=== PATIENT | female | born 1950 | race Caucasian/White ===

== ENCOUNTER 2023-10-28 12:01 | Outpatient (AMB) | payer MEDICARE, OTHER, SELFPAY ==
--- NOTE | 2023-10-28 12:02 | MHC.PC.OV ---
Vital Signs 10/28/23 12:29 10/28/23 13:04 Height 5 ft 0.91 in Weight 198 lb BMI 37.5 BP 158/88 H 140/78 H Blood Pressure Location Lt brachial Lt brachial Position Sitting Sitting Respiration 14 Pulse 85 Pulse Source Pulse Oximeter Temp 98.4 F Temp Source Axillary Pulse Oximetry (%) 98 Oxygen Delivery Method Room Air Intake Visit Reasons: est care Intake Note: New Patient visit. Rash on both hands [employer] Required: No Allergies amoxicillin [From Augmentin] Allergy (Mild, Verified 10/28/23 12:45) skin rash clavulanic acid [From Augmentin] Allergy (Mild, Verified 10/28/23 12:45) skin rash Medication List - Last Reconciled 10/28/23 by PASTORA Wright- aripiprazole 2 mg PO DAILY atorvastatin 40 mg PO DAILY bromfenac 0.09% 1 drp ophthalmic (eye) BID calcium carbonate (Calcium) 1,200 mg PO DAILY cholecalciferol (vitamin D3) 50 mcg PO DAILY lamotrigine 200 mg PO DAILY levothyroxine 100 mcg PO DAILY lorazepam 0.5 mg PO BID PRN losartan 100 mg PO DAILY metformin ER 500 mg PO BID multivitamin 1 tab PO DAILY omega-3 fatty acids 1,000 mg PO DAILY omeprazole 40 mg PO DAILY Tobacco use date assessed: 10/28/23 Fall risk assessment: No Falls in past year Last assessed Fall Risk: 10/28/23 Dental Screening Dental Screen Date: 10/28/23 Did you have a dental visit in the last 12 months?: Yes Did you have a dental problem in the last 6 months where you did not have access to dental care?: No Was dental information given to patient?: Patient has dentist HPI HPI Comments History of Present Illness Details 72-year-old female with hyperlipidemia, prediabetes, GERD, sleep apnea with CPAP, CKD 3, obesity, osteopenia, MDD, bipolar 1 disorder, hypothyroidism, generalized anxiety disorder, hypertension, vitamin-D deficiency, iron deficiency anemia, diverticulitis Status post breast surgery 1996, cataract surgery on the left in 2011, cataract surgery in the right 2013 D&C 2005, eye surgery in 1992, inguinal hernia repair 1960 medial nerve decompression 2004, shoulder arthroscopy with rotator cuff repair on the right 2010, surgery for relief of elevated intra-ocular pressure bilat 2006, tonsillectomy, total abdominal hysterectomy with removal of both ovaries and 2006, excision of ganglion cyst of the wrist 1986, glaucoma surgery 2019 Specialist Psychiatry [facility] Op[facility] Dr Briggs Health maintenance Mammogram 01/19/2022 within normal limits - updated order placed today DEXA 01/19/2022 positive osteopenia- updated order placed today Sleep Study 2019 Colonoscopy 2022 normal 10 year recall * i dont have this record, per pt report Here today to [facility] Old records reviewed Glaucoma - has increased pressure, new drops, may need laser on bilat eyes HTN - on amlodipine & losartan Worried about elevation in BP. Monitors at Home. Reports SBP >= 140. Denies chest pain. Itchy rash bilat hands, present for 2-3 months. Has used OTC meds w/o relief. Does not think insurance covers Derm referral. [facility] Family History (Updated 10/28/23 @ 12:59 by Nilda Mendoza CMA) Mother Hypertension Stroke Father Arthritis, rheumatoid Glaucoma Social History Housing: Apartment Patient Tobacco Use Status: Former Tobacco user Tobacco use type: Cigarette Years Smoked: Only smoked during college e-Cigarette/Vaping Use: Never Used Current occupational status: retired Cognitive needs: No Hearing needs: No Vision needs: No Questionnaire PHQ-9 Over the last 2 weeks, how often have you been bothered by any of the following problems? 1. Little interest or pleasure in doing things: not at all 2. Feeling down, depressed, or hopeless: not at all 3. Trouble falling or staying asleep, or sleeping too much: several days 4. Feeling tired or having little energy: nearly every day 5. Poor appetite or overeating: not at all 6. Feeling bad about yourself - or that you are a failure or have let yourself or your family down: not at all 7. Trouble concentrating on things, such as reading the newspaper or watching television: not at all 8. Moving or speaking so slowly that other people could have noticed. Or the opposite - being so fidgety or restless that you have been moving around a lot more than usual: not at all 9. Thoughts that you would be better off or of hurting yourself in some way: not at all Total score: 4 Depression Screening Interpretation: Positive Depression Screening Follow-up: Existing condition and In treatment Depression Screening Done: Yes 48479 - PHQ-9 Billing: Yes Source: Developed by Drs. Jerome Carranza, Padmini Bower, Jay Jay Gonzalez and colleagues, with an educational orlando from [employer]. Thrive Questionnaire Date Thrive assessed: 10/28/23 I am a: Patient What is your living situation today?: I have a steady place to live Within the past 12 months, did the food you bought not last and you didn't have the money to get more?: Never true Within the past 12 months, did you worry whether your food would run out before you got money to buy more?: Never true Do you have trouble paying for medicines?: No Do you have trouble getting transportation to medical appointments?: No Do you have trouble paying your heating and electricity bill?: No Do you have trouble taking care of your child, family member or friend?: No Do you have trouble with day-to-day activities such as bathing, preparing meals, shopping, managing finances, etc.?: No Are you currently unemployed and looking for a job?: No Are you interested in more education?: No Please select the resources that you would like help with: None Currently or been in a relationship where the following occur: no concerns reported THRIVE Score: 0 AUDIT C Alcohol Use Questionnaire (AUDIT-C) 1. How often do you have a drink containing alcohol?: Never 2. How many drinks containing alcohol do you have on a typical day when you are drinking?: 1 or 2 3. How often do you have six or more drinks on one occasion?: Never Total Score: 0 Score Reviewed/Action Taken: Yes AYANNA-7 AMB Questionnaire AYANNA-7 Date AYANNA - 7 assessed: 10/28/23 Feeling nervous, anxious, or on edge: 0 = Not at all Not being able to stop or control worryin = Not at all Worrying too much about different things: 0 = Not at all Trouble relaxin = Not at all Being so restless that it is hard to sit still: 0 = Not at all Becoming easily annoyed or irritable: 0 = Not at all Feeling afraid as if something awful might happen: 0 = Not at all Total AYANNA-7 score (0-4 normal; 5-9 mild; 10-14 moderate; 15-21 severe): 0 Source: Developed by Drs. Jerome Carranza, Padmini Bower, Jay Jay Gonzalez and colleagues, with an educational orlando from [employer] AYANNA-7 Assessment Billing AYANNA-7 Assessment Tool: AYANNA-7 Assessment 41712 Review of Systems Const All systems reviewed & are unremarkable except as noted in HPI and below Physical exam (Primary Care) Vital Signs: Last Vital Signs Temp 98.4 F 10/28/23 12:29 Pulse 85 10/28/23 12:29 Resp 14 10/28/23 12:29 BP 140/78 H 10/28/23 13:04 Pulse Ox 98 10/28/23 12:29 Oxygen Delivery Method Room Air 10/28/23 12:29 BMI result Body Mass Index 37.5 BMI Assessment/Plan discussion: High BMI High, discussed plan: lifestyle Tobacco/Smoking Status: Tobacco use Status Tobacco use date assessed 10/28/23 10/28/23 12:41 Patient Tobacco Use Status Former Tobacco user 10/28/23 12:41 Tobacco use type Cigarette 10/28/23 12:41 e-Cigarette/Vaping Use Never Used 10/28/23 12:24 PHQ-9: PHQ-9 Score PHQ-9: Total score 4 10/28/23 13:25 Depression Screening Interpretation: Positive Depression Screening Follow-up: Existing condition and In treatment Thrive Assessment: Date of Thrive Assessment Date Thrive assessed 10/28/23 10/28/23 13:01 Currently or been in a relationship where the following occur: no concerns reported Const Other: awake alert NAD scleras nonicteric bilat MMM RRR, 2/6 systolic murmur LSB LS dim at bases otherwise clear throughout Mood and affect appropriate Bilat hands eczematous type rash w/o secondary infection Purpura bilat Trace edema BLE R>L hairless, chronic vascular skin changes Assessment and Plan Assessment & Plan (1) Osteopenia: Comment: DEXA 2021, new order placed today Code(s): M85.80 - Other specified disorders of bone density and structure, unspecified site Qualifiers: Osteopenia location: multiple sites Qualified Code(s): M85.89 - Other specified disorders of bone density and structure, multiple sites (2) Screening for breast cancer: Comment: routine screening Code(s): Z12.39 - Encounter for other screening for malignant neoplasm of breast Qualifiers: Breast cancer screening modality: mammogram Qualified Code(s): Z12.31 - Encounter for screening mammogram for malignant neoplasm of breast (3) CKD (chronic kidney disease) stage 3, GFR 30-59 ml/min: Comment: based on previous records; ordered updated labs. Code(s): N18.30 - Chronic kidney disease, stage 3 unspecified Qualifiers: Chronic kidney disease stage 3 subtype: stage 3a (GFR 45-59) Qualified Code(s): N18.31 - Chronic kidney disease, stage 3a (4) Iron deficiency anemia: Comment: unsure of cause, colon UTD Check labs She is on PPI 40mg QD, has been for a long time. Has no idea why she is on it. Will work on deprescribing. Code(s): D50.9 - Iron deficiency anemia, unspecified Qualifiers: Iron deficiency anemia type: unspecified iron deficiency Qualified Code(s): D50.9 - Iron deficiency anemia, unspecified (5) Prediabetes: Comment: check labs & bring back to discuss on Metformin ER 500mg po BID Code(s): R73.03 - Prediabetes (6) HTN (hypertension): Comment: on losartan 100mg QD and amlodipine. * Of note, amlodipine not on current med list, will have to verify. BP goal < 130/80. Reports home log SBP around 140 Plan: at this time,cont meds, check labs, monitor BP QD at home, bring log to next visit & adjust meds as needed. Code(s): I10 - Essential (primary) hypertension Qualifiers: Hypertension type: primary hypertension Qualified Code(s): I10 - Essential (primary) hypertension (7) Dermatitis: Comment: of hands plan: topical steroid bid + ointment based moisturizer until healed Code(s): L30.9 - Dermatitis, unspecified (8) BRIANNA on CPAP: Comment: referred to [facility] sleep medicine for mgmt Code(s): G47.33 - Obstructive sleep apnea (adult) (pediatric) (9) Heart murmur previously undiagnosed: Comment: noted on exam today. Echo ordered. Code(s): R01.1 - Cardiac murmur, unspecified (10) Hyperlipidemia LDL goal <100: Comment: on atorvastatin 40mg QD Check labs Code(s): E78.5 - Hyperlipidemia, unspecified (11) Bipolar 1 disorder: Comment: managed by outside prescriber currently on lorazepam, abilify and cymbalta Code(s): F31.9 - Bipolar disorder, unspecified (12) Hypothyroid: Comment: on levothyroxine 100mcg QD update labs Code(s): E03.9 - Hypothyroidism, unspecified Qualifiers: Hypothyroidism type: acquired Qualified Code(s): E03.9 - Hypothyroidism, unspecified (13) Vitamin D deficiency: Comment: on Vitamin d3 50mcg QD + Calcium Carb 1200 mg QD Code(s): E55.9 - Vitamin D deficiency, unspecified (14) PVD (peripheral vascular disease): Comment: based on physical exam Monitor skin integrity, cont statin and BP control Code(s): I73.9 - Peripheral vascular disease, unspecified (15) Glaucoma: Comment: will need to obtain records active w Dr Briggs on eye drops Code(s): H40.9 - Unspecified glaucoma Qualifiers: Glaucoma type: unspecified Plan This note is constructed using voice recognition software. While every effort has been made to ensure accuracy in line and frame poler, still errors may have been included Sometimes, these errors may affect the content or meaning of the given sentence . Total time spent caring for the patient today was 75 minutes. This includes time spent before the visit reviewing the chart, time spent during the visit, and time spent after the visit on documentation Orders: Orders MM tomosynthesis screening BI Today M85.80 - Other specified disorders of bone density and structure, unspecified site, Z12.39 - Encounter for other screening for malignant neoplasm of breast XR DEXA axial skeleton Today M85.80 - Other specified disorders of bone density and structure, unspecified site, Z12.39 - Encounter for other screening for malignant neoplasm of breast Comprehensive [place]. Panel Fast Today D50.9 - Iron deficiency anemia, unspecified, I10 - Essential (primary) hypertension, M85.80 - Other specified disorders of bone density and structure, unspecified site, N18.30 - Chronic kidney disease, stage 3 unspecified, R73.03 - Prediabetes Lipid Panel Today D50.9 - Iron deficiency anemia, unspecified, I10 - Essential (primary) hypertension, M85.80 - Other specified disorders of bone density and structure, unspecified site, N18.30 - Chronic kidney disease, stage 3 unspecified, R73.03 - Prediabetes TSH reflex Free T4 Today D50.9 - Iron deficiency anemia, unspecified, I10 - Essential (primary) hypertension, M85.80 - Other specified disorders of bone density and structure, unspecified site, N18.30 - Chronic kidney disease, stage 3 unspecified, R73.03 - Prediabetes Complete Blood Count no Diff Today D50.9 - Iron deficiency anemia, unspecified, I10 - Essential (primary) hypertension, M85.80 - Other specified disorders of bone density and structure, unspecified site, N18.30 - Chronic kidney disease, stage 3 unspecified, R73.03 - Prediabetes Vitamin B12 and Folate Today D50.9 - Iron deficiency anemia, unspecified, I10 - Essential (primary) hypertension, M85.80 - Other specified disorders of bone density and structure, unspecified site, N18.30 - Chronic kidney disease, stage 3 unspecified, R73.03 - Prediabetes Microalbumin, Random (w Creat) Today D50.9 - Iron deficiency anemia, unspecified, I10 - Essential (primary) hypertension, M85.80 - Other specified disorders of bone density and structure, unspecified site, N18.30 - Chronic kidney disease, stage 3 unspecified, R73.03 - Prediabetes Vitamin D 1,25 dihydroxy Today D50.9 - Iron deficiency anemia, unspecified, I10 - Essential (primary) hypertension, M85.80 - Other specified disorders of bone density and structure, unspecified site, N18.30 - Chronic kidney disease, stage 3 unspecified, R73.03 - Prediabetes IRON PROFILE Today D50.9 - Iron deficiency anemia, unspecified, I10 - Essential (primary) hypertension, M85.80 - Other specified disorders of bone density and structure, unspecified site, N18.30 - Chronic kidney disease, stage 3 unspecified, R73.03 - Prediabetes CA echo transthoracic complete Today R01.1 - Cardiac murmur, unspecified Referrals Sleep Medicine Referral G47.33 - Obstructive sleep apnea (adult) (pediatric) Medications: New triamcinolone acetonide 0.1% 1 appl topical BID 15 grams 2RF Patient Instructions: USE SOMETHING LIKE A&D OINT OR BAGBALM OINTMENT RTO IN 2-3 WEEKS TO FU ON LABS, ECHO RESULTS, HTN MGMT, MED MGMT Coding Level of Care Code New Pt Level 5 (30254) Diagnoses Osteopenia of multiple sites M85.89 Osteopenia location: multiple sites Encounter for screening mammogram for malignant neoplasm of breast Z12.31 Breast cancer screening modality: mammogram Stage 3a chronic kidney disease N18.31 Chronic kidney disease stage 3 subtype: stage 3a (GFR 45-59) Iron deficiency anemia, unspecified iron deficiency anemia type D50.9 Iron deficiency anemia type: unspecified iron deficiency Prediabetes R73.03 Primary hypertension I10 Hypertension type: primary hypertension Dermatitis L30.9 BRIANNA on CPAP G47.33 Heart murmur previously undiagnosed R01.1 Hyperlipidemia LDL goal <100 E78.5 Bipolar 1 disorder F31.9 Acquired hypothyroidism E03.9 Hypothyroidism type: acquired Vitamin D deficiency E55.9 PVD (peripheral vascular disease) I73.9 Glaucoma H40.9 Glaucoma type: unspecified Additional Codes AYANNA-7 Assessment Billing - AYANNA-7 Assessment Tool: AYANNA-7 Assessment [id number] ([id number])
[2023-10-28 12:29] VITALS: BP 158/88; PULSE 85; RESP 14; TEMP 36.9; O2SAT 98; BMI 37.5
[2023-10-28 13:04] VITALS: BP 140/78
== END 2023-10-28 13:24 | disposition home or self-care (01) ==
PROVIDERS: PCP Nurse Practitioner Family; Visit Provider Nurse Practitioner Family
DX: M85.89 Other specified disorders of bone density and structure, multiple sites (principal); Z12.31 Encounter for screening mammogram for malignant neoplasm of breast; N18.31 Chronic kidney disease, stage 3a; D50.9 Iron deficiency anemia, unspecified; R73.03 Prediabetes; I10 Essential (primary) hypertension; L30.9 Dermatitis, unspecified; G47.33 Obstructive sleep apnea (adult) (pediatric); R01.1 Cardiac murmur, unspecified; E78.5 Hyperlipidemia, unspecified; F31.9 Bipolar disorder, unspecified; E03.9 Hypothyroidism, unspecified
CPT/HCPCS: 99205

== ENCOUNTER 2023-10-29 10:51 | Outpatient (REF) | payer MEDICARE, OTHER, SELFPAY ==
[2023-10-29 14:40] LABS: Hemoglobin 13.4 g/dl (12.0-16.0); Mean Corpuscular HGB Conc 33.5 g/dl (31.0-35.0); Mean Corpuscular Hemoglobin 31.1 pg (27.0-33.0); Mean Corpuscular Volume 92.8 fL (80.0-98.0); Platelet Count 297 X10*3/uL (160-400); Red Blood Count 4.31 X10*6/uL (4.20-5.50); Red Cell Distribution Width 13.5 % (11.0-16.0); White Blood Count 4.4 X10*3/uL (4.8-10.8)
[2023-10-29 15:32] LABS: Alanine Aminotransferase 17 U/L (0-31); Albumin Level 4.4 g/dL (3.5-5.0); Alkaline Phosphatase 69 U/L (39-117); Anion Gap 15 (12-20); Aspartate Amino Transferase 18 U/L (5-31); Bilirubin Total 0.5 mg/dL (0.0-1.0); Blood Urea Nitrogen 18 mg/dL (9-16); Calcium 9.9 mg/dL (8.4-10.2); Carbon Dioxide 26 mmol/L (22-29); Chloride 102 mmol/L (96-108); Cholesterol 203 mg/dL (<200); Estimated Glomerular Filt Rate > 60; Glucose Fasting 83 mg/dL (60-99); HDL Cholesterol 66 mg/dL (>40); Iron 110 mcg/dL (30-160); LDL Cholesterol Calculated 100 mg/dL (<100); Percent Iron Saturation 31 % (15-50); Sodium 139 mmol/L (135-145); Total Iron Binding Capacity 352 mcg/dL (228-428); Total Protein 7.3 g/dL (6.5-8.0); Triglycerides 188 mg/dL (<150); Unsaturated Iron Binding 242 ug/dL
[2023-10-29 15:46] LABS: TSH reflex Free T4 4.01 uIU/mL (0.32-4.0)
[2023-10-29 15:59] LABS: Microalbum/Creatinine Ratio Ur 112.7 ug/mg cr (<30)
[2023-10-29 16:02] LABS: Folate 16.6 ng/mL (> or = 4.0); Vitamin B12 501 pg/mL (200-900)
[2023-10-29 16:25] LABS: Free T4 (Free Thyroxine) 0.94 ng/dL (0.71-1.85)
[2023-11-03 01:48] LABS: VITAMIN D (1,25 OH) D3 63 pg/mL; Vit D (1,25-Dihydroxy) Total 63 pg/mL (18-72); Vitamin D (1,25 OH) D2 <8 pg/mL
== END 2023-10-29 10:52 | disposition home or self-care (01) ==
LOC: HO.WFDLDS 10:51
PROVIDERS: Visit Provider Nurse Practitioner Family
DX: I12.9 Hypertensive chronic kidney disease with stage 1 through stage 4 chronic kidney disease, or unspecified chronic kidney disease (principal); R73.03 Prediabetes; D50.9 Iron deficiency anemia, unspecified; M85.80 Other specified disorders of bone density and structure, unspecified site; N18.30 Chronic kidney disease, stage 3 unspecified
CPT/HCPCS: 36415; 80053; 80061; 82043; 82570; 82607; 82652; 82746; 83540; 84439; 84443; 85027

== ENCOUNTER 2023-11-11 09:04 | Outpatient (AMB) | payer MEDICARE, OTHER, SELFPAY ==
--- NOTE | 2023-11-11 09:37 | MHC.PC.OV ---
Vital Signs 11/11/23 09:39 Height 5 ft 2 in Weight 198 lb BMI 36.2 BP 147/85 H Blood Pressure Location Rt brachial Position Sitting Respiration 13 Pulse 99 Pulse Source Pulse Oximeter Temp 98.2 F Temp Source Temporal Artery Scan Pulse Oximetry (%) 98 Oxygen Delivery Method Room Air Intake Visit Reasons: FU LABS, HTN W/ BP LOG & MED MGMT Allergies amoxicillin [From Augmentin] Allergy (Mild, Verified 11/11/23 10:09) skin rash clavulanic acid [From Augmentin] Allergy (Mild, Verified 11/11/23 10:09) skin rash Medication List - Last Reconciled 11/11/23 by Gill Saldivar, [employer]ES [employer]ISING [employer]OC[employer]ATE-BC aripiprazole 2 mg PO DAILY atorvastatin 40 mg PO DAILY bromfenac 0.09% 1 drp ophthalmic (eye) BID calcium carbonate (Calcium) 1,200 mg PO DAILY cholecalciferol (vitamin D3) 50 mcg PO DAILY lamotrigine 200 mg PO DAILY levothyroxine 100 mcg PO DAILY lorazepam 0.5 mg PO BID PRN losartan 100 mg PO DAILY metformin ER 500 mg PO BID multivitamin 1 tab PO DAILY omeprazole 40 mg PO DAILY triamcinolone acetonide 0.1% 1 appl topical BID Tobacco use date assessed: 10/28/23 Fall risk assessment: No Falls in past year Last assessed Fall Risk: 11/11/23 Dental Screening Dental Screen Date: 10/28/23 HPI HPI Comments History of Present Illness Details 72-year-old female with hyperlipidemia, prediabetes, GERD, sleep apnea with CPAP, CKD 3, obesity, osteopenia, MDD, bipolar 1 disorder, hypothyroidism, generalized anxiety disorder, hypertension, vitamin-D deficiency, iron deficiency anemia, proteinuria Status post breast surgery 1996, cataract surgery on the left in 2011, cataract surgery in the right 2012 D&C 2005, eye surgery in 1992, inguinal hernia repair 1960 medial nerve decompression 2004, shoulder arthroscopy with rotator cuff repair on the right 2010, surgery for relief of elevated intra-ocular pressure bilat 2005, tonsillectomy, total abdominal hysterectomy with removal of both ovaries and 2005, excision of ganglion cyst of the wrist 1986, glaucoma surgery 2018 Specialist Psychiatry Ophthalmology Health maintenance Mammogram 01/19/2022 within normal limits DEXA 01/19/2022 positive osteopenia Sleep Study 2019 Vaccines - UTD, will get latest PCV Here today for chronic condition FU. Echo scheduled next Wednesday Mammo and DEXA next Wednesday Labs from 10/29/2023 show a normal CBC, normal electrolytes, normal BUN creatinine, normal fasting glucose, normal iron studies, normal LFTs, elevated total cholesterol 203, triglycerides 188, LDL 100, HDL 66, normal B12, normal folate, TSH 4.01, free thyroxine 0.94, elevated urine microalbumin creatinine at 112.7, Vit d normal Rash on R hand is much improved w/ desitin and topical steroid. Left knee hurts. Did something to it. unsure of what; generally aches. Wonders if related to weather. Exercising daily. This helps. BP log reviewed. sBP 115-153 DBP 62-88 P 76-98 Taking Calcium/Mg/Zinc/D3 supplement daily 1000/400/15/600 Labs WNL on this, ok to cont. [facility] Medical History (Updated 11/11/23 @ 16:37 by Gill Saldivar, [facility]) No pertinent past medical history Surgical History (Updated 11/11/23 @ 09:48 by Mariann Blandon CMA) No pertinent past surgical history Family History (Updated 11/11/23 @ 09:49 by Mariann Blandon CMA) Mother Hypertension Stroke Father Arthritis, rheumatoid Glaucoma Social History (Updated 11/11/23 @ 09:46 by Mariann Blandon CMA) Household Members: None Housing: Apartment 75 years or older and lives alone: No Alcohol intake: current Alcohol intake frequency: holidays/special occasions only Patient Tobacco Use Status: Former Tobacco user Tobacco use type: Cigarette Years Smoked: Only smoked during college e-Cigarette/Vaping Use: Never Used service: No Current occupational status: retired Current occupational exposures/hazards: No Cognitive needs: No Hearing needs: No Vision needs: No Questionnaire Thrive Questionnaire Date Thrive assessed: 10/28/23 AYANNA-7 AMB Questionnaire AYANNA-7 Date AYANNA - 7 assessed: 10/28/23 Source: Developed by Drs. Jerome Carranza, Padmini Bower, Jay Jay Gonzalez and colleagues, with an educational [place] from [employer] Review of Systems Const All systems reviewed & are unremarkable except as noted in HPI and below Physical exam (Primary Care) Vital Signs: Last Vital Signs Temp 98.2 F 11/11/23 09:39 Pulse 99 11/11/23 09:39 Resp 13 11/11/23 09:39 BP 147/85 H 11/11/23 09:39 Pulse Ox 98 11/11/23 09:39 Oxygen Delivery Method Room Air 11/11/23 09:39 BMI result Body Mass Index 36.2 BMI Assessment/Plan discussion: High BMI High, discussed plan: lifestyle Tobacco/Smoking Status: Tobacco use Status Tobacco use date assessed 10/28/23 11/11/23 09:39 Patient Tobacco Use Status Former Tobacco user 11/11/23 09:46 Tobacco use type Cigarette 11/11/23 09:46 e-Cigarette/Vaping Use Never Used 11/11/23 09:46 Thrive Assessment: Date of Thrive Assessment Date Thrive assessed 10/28/23 11/11/23 09:39 Const Other: awake alert NAD scleras nonicteric bilat MMM RRR, 2/6 systolic murmur LSB LS dim at bases otherwise clear throughout Mood and affect appropriate Bilat hands clear of rash Purpura bilat Trace edema BLE R>L hairless, chronic vascular skin changes Assessment and Plan Assessment & Plan (1) HTN (hypertension): Comment: on losartan 100mg QD and amlodipine 10mg BP goal < 130/80. Reports home log SBP around 140 Plan: Add hydrochlorothiazide 12.5 mg. Prescription for losartan 100 mg/hydrochlorothiazide 12.5 mg 1 tablet once per day sent to the pharmacy should take this along with the amlodipine 10 mg daily. monitor BP QD at home, bring log to next visit & adjust meds as needed. Code(s): I10 - Essential (primary) hypertension Qualifiers: Hypertension type: primary hypertension Qualified Code(s): I10 - Essential (primary) hypertension (2) Vitamin D deficiency: Comment: on Vitamin d3 50mcg QD + Calcium Carb 1200 mg QD Vitamin-D within normal limits, continue Code(s): E55.9 - Vitamin D deficiency, unspecified (3) Hypothyroid: Comment: on levothyroxine 100mcg QD Euthyroid based on labs TSH 4.01, continue levothyroxine at current dose Code(s): E03.9 - Hypothyroidism, unspecified Qualifiers: Hypothyroidism type: acquired Qualified Code(s): E03.9 - Hypothyroidism, unspecified (4) Hyperlipidemia LDL goal <100: Comment: on atorvastatin 40mg QD LDL at goal, continue atorvastatin 40 mg daily Code(s): E78.5 - Hyperlipidemia, unspecified (5) Iron deficiency anemia: Comment: in the past, most recent labs WNL, colon UTD She is on PPI 40mg QD, has been for a long time. Has no idea why she is on it. Will work on deprescribing. Take omeprazole 20mg daily x 2 weeks, then take every other day x 1 week and then cont to decrease weekly until off. IF you have any symptoms of heart burn or reflux, resume the previous week dosing for 2 weeks and then continue the taper. If not able to fully come off, ok to HOLD at that dose & we can go from there. Code(s): D50.9 - Iron deficiency anemia, unspecified Qualifiers: Iron deficiency anemia type: unspecified iron deficiency Qualified Code(s): D50.9 - Iron deficiency anemia, unspecified Plan This note is constructed using voice recognition software. While every effort has been made to ensure accuracy in catering driver, still errors may have been included Sometimes, these errors may affect the content or meaning of the given sentence . Total time spent caring for the patient today was 45 minutes. This includes time spent before the visit reviewing the chart, time spent during the visit, and time spent after the visit on documentation RTO TO DISCUSS ECHO, MAMMO, DEXA RESULTS *WILL NEED TO ORDER FUTURE LABS AT NEXT OV Medications: New omeprazole 20 mg PO DAILY 90 caps 0RF losartan-hydrochlorothiazide 100-12.5 mg 1 tab PO DAILY 90 tabs 0RF amlodipine 10 mg PO DAILY 90 tabs 0RF Patient Instructions: Take omeprazole 20mg daily x 2 weeks, then take every other day x 1 week and then cont to decrease weekly until off. IF you have any symptoms of heart burn or reflux, resume the previous week dosing for 2 weeks and then continue the taper. If not able to fully come off, ok to HOLD at that dose & we can go from there. Coding Level of Care Code Est Pt Level 5 (16132) Diagnoses Primary hypertension I10 Hypertension type: primary hypertension Vitamin D deficiency E55.9 Acquired hypothyroidism E03.9 Hypothyroidism type: acquired Hyperlipidemia LDL goal <100 E78.5 Iron deficiency anemia, unspecified iron deficiency anemia type D50.9 Iron deficiency anemia type: unspecified iron deficiency
[2023-11-11 09:39] VITALS: BP 147/85; PULSE 99; RESP 13; TEMP 36.8; O2SAT 98; BMI 36.2
== END 2023-11-11 10:36 | disposition home or self-care (01) ==
PROVIDERS: PCP Family Medicine; Visit Provider Nurse Practitioner Family
DX: I10 Essential (primary) hypertension (principal); E55.9 Vitamin D deficiency, unspecified; E03.9 Hypothyroidism, unspecified; E78.5 Hyperlipidemia, unspecified; D50.9 Iron deficiency anemia, unspecified
CPT/HCPCS: 99215

== ENCOUNTER → 2023-11-15 13:57 | Outpatient (REF) | payer MEDICARE, OTHER, SELFPAY ==
--- NOTE | 2023-11-15 14:02 | CA_ITS ---
Transthoracic Echocardiogram Amended Patient (Last, First, Middle): Belen Ram, Gender: Female Date of : 1950 Age: 72 Procedure Date: 11/15/2023 Procedure Type: Transthoracic Echocardiogram Location: OP Height: 157.48 cm Weight: 86.18 kg BSA: 1.87 m2 Heart Rate: 61 bpm BP: 145 / 85 mmHg [employer] Planner: LAYLA Referring MD: Gill Saldivar [facility] District Ranger: Delgado Vallejo MD Symptoms: R01.1 - Cardiac murmur, unspecified Study Quality: Fair ECG Rhythm: Sinus Conclusions: - 1. Hyperdynamic LV ejection fraction greater than 70% with impaired relaxation filling pattern 2. Mildly elevated aortic velocities which could be due to increased stroke volume 3. Normal RV systolic pressure 4. No gross pericardial effusion Findings Left Ventricle Normal left ventricular cavity size. There is normal left ventricular wall thickness. The left ventricular systolic function is hyperdynamic. The visually estimated ejection fraction is >70%. Spectral Doppler is indicative of an impaired relaxation filling pattern. E/E prime ratio is between 8 and 15 consistent with indeterminate filling pressures. Peak GLS is -18.2%, within normal limits. Right Ventricle Normal right ventricular cavity size and systolic function. Atria Both atria are normal in size. There is no evidence of interatrial shunt. Aortic Valve Normal aortic valve structure and function. There is no aortic valve stenosis. There is no aortic valve regurgitation. increased gradient through the aortic valve probably related to high stroke volume and/or minimal subaortic obstruction Mitral Valve Normal mitral valve structure and function. There is trace mitral valve regurgitation. There is no mitral valve stenosis. Pulmonic Valve The pulmonic valve is likely normal. There is trace pulmonic valve regurgitation. Tricuspid Valve Normal tricuspid valve structure. There is trace tricuspid valve regurgitation. The right ventricular systolic pressure is normal. The right ventricular systolic pressure is 21 mmHg. Normal right atrial pressure. There is no evidence of pulmonary hypertension. Great Vessels The pulmonary artery was not well visualized. There is no dilatation of the ascending aorta measuring 3.40 cm. Venous The inferior vena cava is normal in size and collapses greater than 50% with inspiration. Pericardium/Pleural There is no evidence of pericardial effusion. Prior Study Comparison No prior study available for comparison. Measurements 2D Linear Measurements IVSd: 1.10 0.6-0.9/0.6-1.0 cm LVIDd: 3.70 3.9-5.3/4.2-5.9 cm LVIDd Index: 1.98 2.4-3.2/2.2-3.1 cm/m2 LVIDs: 1.82 2.0-3.6 cm LVPWd: 0.91 0.7-1.1 cm LA Diam: 3.00 2.7-3.8/3.0-4.0 cm LAIDs Index: 1.60 1.5-2.3 cm/m2 LV Mass: 140.73 67-162/88-224 g LV Mass Index: 75.26 43-95/49-115 g/m2 LVOT Diam: 1.80 3.0+(-)1.3 cm 2D Volumes LA Vol: 22.10 2D Systolic Function EF 4C: 78.20 >55% EF 2C: 71.40 >55% EF BiP: 76.20 >55% Mitral Valve MV Pk E: 0.61 MV PK A: 0.92 MV Decel Time: 343.00 E/A: 0.70 E'Lateral: 7.94 E'Medial: 4.90 E/E' Med: 12.40 E/E' Lat: 7.70 PHT: 101.00 MVA PHT: 2.18 Decel Elk: 1.77 Aortic Valve AoV Pk Romeo: 1.78 AoV Mn Romeo: 1.13 AoV VTI: 0.33 AoV Pk Grad: 13.00 Aov Mn Grad: 6.00 NANI Cont.VTI: 2.19 LVOT LVOT Pk Romeo: 1.42 LVOT Mn Romeo: 1.01 LVOT VTI: 0.29 LVOT Pk Grad: 8.00 LVOT Mn Grad: 5.00 LVOT Diam: 1.80 LVOT Area: 2.54 Diastolic Function MV Pk E: 0.61 MV Pk A: 0.92 E/A: 0.70 E'Medial: 4.90 E/E' Med: 12.40 E' Laterial: 7.94 E/E' Lat: 7.70 Right Ventricle TAPSE (mm): 22.60 TVS' Romeo: 9.68 Tricuspid Valve TR Pk Romeo: 2.13 TR Pk Grad: 18.00 RA Press: 3.00 RVSP: 21.00 Great Vessels Aorta Sinus of Valsalva: 3.00 2.0-3.5 cm Ao Asc: 3.40 2.1-3.4 cm Pulmonary Valve PV Pk Romeo: 1.10 Peak PV Grad: 5.00 Updated in Other Vendor System with Status of Final Delgado Vallejo MD electronically signed on 11/16/2023 10:57:24 AM with status of Final
== END ==
LOC: HO.CARD 13:57
PROVIDERS: PCP Nurse Practitioner Family; Visit Provider Nurse Practitioner Family
DX: R01.1 Cardiac murmur, unspecified (principal)
CPT/HCPCS: 93306; 93356

== ENCOUNTER → 2023-11-15 14:02 | Outpatient (BNV) | payer MEDICARE, OTHER, SELFPAY | PROVIDERS: PCP Nurse Practitioner Family; Visit Provider Internal Medicine Cardiovascular Disease | DX: R01.1 Cardiac murmur, unspecified (principal); R93.1 Abnormal findings on diagnostic imaging of heart and coronary circulation | CPT/HCPCS: 93306; 93356 ==

== ENCOUNTER 2023-11-19 12:29 | Outpatient (REF) | payer MEDICARE, OTHER, SELFPAY ==
--- NOTE | ~2023-11-19 | MM_ITS ---
EXAMINATION: BONE DENSITOMETRY CLINICAL INDICATION: Osteopenia. COMPARISON: This is the patient's baseline examination. TECHNIQUE: Using a [employer] DXA System (software version: 13.1) manufactured by [employer], dual-energy x-ray absorptiometry was performed of the lumbar spine and left hip. The images are of good technical quality. Summary results are attached. FINDINGS: LEFT FEMUR, NECK: BMD 0.534 g/cm2, Z-score -2.3, T-score -3.6, osteoporosis. LEFT FEMUR, TOTAL: BMD 0.666 g/cm2, Z-score -1.6, T-score -2.7, osteoporosis. AP SPINE L1-L4: BMD 0.958 g/cm2, Z-score -0.8, T-score -1.9, osteopenia. IDENTIFIED RISK FACTORS: Hysterectomy, menopause, bilateral oophorectomy, parental hip fracture. HISTORY OF FRACTURE: None listed. MEDICATIONS: Calcium supplements or multivitamin, vitamin D. MM/XR DEXA axial skeleton IMPRESSION: 1. DIAGNOSIS: Osteoporosis based on the lowest T-score value of -3.6 in the femoral neck applying World Health Organization criteria. 2. 10-YEAR FRACTURE RISK PREDICTION, FRAX: According to the guidelines, FRAX calculation should only be performed on patients in the osteopenia bone density category. Therefore, FRAX was not performed on this patient. 3. Treatment Recommendations: NOF guidelines recommend consideration for treatment in postmenopausal women and men age 50 and older presenting with the following: -A hip or vertebral (clinical or morphometric) fracture. -T-score less than or equal to -2.5 at the femoral neck or spine after appropriate evaluation to exclude secondary causes. -Low bone mass at the hip or spine and a 10-year fracture probability by FRAX of greater than or equal to 3% for hip fracture or greater than or equal to 20% for major osteoporotic fracture based on the [place] adapted WHO algorithm. 4. Other Recommendations: All treatment decisions require clinical judgment and consideration of individual patient factors, including patient preferences, comorbidities, previous drug use, risk factors not captured in the FRAX model (e.g. frailty, falls, vitamin D deficiency, increased bone turnover, interval significant decline in bone density) and possible under or overestimation of fracture risk by FRAX. Additional medical evaluation for secondary cause of low bone mineral density may be appropriate. FUTURE SCAN RECOMMENDATION: People with diagnosed cases of osteoporosis or at high risk for fracture should have regular bone mineral density tests. For patients eligible for Medicare, routine testing is allowed once every 2 years. The testing frequency can be increased to one year for patients who have rapidly progressing disease, those who are receiving or discontinuing medical therapy to restore bone mass, or have additional risk factors.
--- NOTE | ~2023-11-19 | MM_ITS ---
EXAMINATION: MM SCREENING DIGITAL BREAST TOMOSYNTHESIS, BILATERAL CLINICAL INFORMATION: Screening. Asymptomatic. COMPARISON: Mammography: This study is compared with prior exams dating back to 2019. TECHNIQUE: Digital breast tomosynthesis is performed in both the craniocaudal and mediolateral oblique views along with computer-aided detection (CAD). Synthesized 2D images are generated from the tomosynthesis. FINDINGS: The breasts are heterogeneously dense, which may obscure small masses (ACR BI-RADS breast composition Category c). There are no significant masses, abnormal calcifications, or other abnormalities. There are bilateral, unchanged benign calcifications. MM/MM tomosynthesis screening BI IMPRESSION: No mammographic evidence of malignancy. ASSESSMENT: BI-RADS BI-RADS 2 - Benign Findings RECOMMENDATION: Routine annual mammography screening. 1 year F/U This examination should not preclude the clinical evaluation of a suspicious palpable abnormality. This patient's information was entered into a reminder system with a target due date for their next mammogram.
== END 2023-11-19 12:30 | disposition home or self-care (01) ==
LOC: HO.MAMMO 12:29
PROVIDERS: PCP Nurse Practitioner Family; Visit Provider Nurse Practitioner Family
DX: Z12.31 Encounter for screening mammogram for malignant neoplasm of breast (principal); Z13.820 Encounter for screening for osteoporosis; M85.80 Other specified disorders of bone density and structure, unspecified site; Z78.0 Asymptomatic menopausal state
CPT/HCPCS: 77063; 77067; 77080

== ENCOUNTER → 2023-11-19 13:00 | Outpatient (BNV) | payer MEDICARE, OTHER, SELFPAY | PROVIDERS: PCP Nurse Practitioner Family; Visit Provider Radiology Diagnostic Radiology | DX: Z12.31 Encounter for screening mammogram for malignant neoplasm of breast (principal) | CPT/HCPCS: 77063; 77067 ==

== ENCOUNTER 2023-11-25 10:15 | Outpatient (AMB) | payer MEDICARE, OTHER, SELFPAY ==
--- NOTE | 2023-11-25 10:16 | A.OFFPC_ITS ---
Vital Signs 3 11/25/23 10:20 11/25/23 10:51 Height 5 ft 2 in Weight 198 lb BMI 36.2 BP 151/73 H 128/76 Blood Pressure Location Rt brachial Lt brachial Position Sitting Sitting Pulse 76 Pulse Source Pulse Oximeter Pulse Oximetry (%) 97 Oxygen Delivery Method Room Air Intake Visit Reasons: F/U Echo results Intake Note: Patient is here to review results. Patient brought her blood pressure machine and a list of BP readings to todays appointment. 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 Required: No Accompanied by: Self / Same As Patient Allergies amoxicillin [From Augmentin] Allergy (Mild, Verified 11/25/23 10:23) skin rash clavulanic acid [From Augmentin] Allergy (Mild, Verified 11/25/23 10:23) skin rash Medication List - Last Reconciled 11/25/23 by Gill Saldivar, SWEATER OPERATOR- amlodipine 10 mg PO DAILY aripiprazole 2 mg PO DAILY atorvastatin 40 mg PO DAILY bromfenac 0.09% 1 drp ophthalmic (eye) BID calcium carbonate (Calcium) 1,200 mg PO DAILY cholecalciferol (vitamin D3) 50 mcg PO DAILY lamotrigine 200 mg PO DAILY levothyroxine 100 mcg PO DAILY lorazepam 0.5 mg PO BID PRN losartan-hydrochlorothiazide 100-12.5 mg 1 tab PO DAILY metformin ER 500 mg PO BID multivitamin 1 tab PO DAILY omeprazole 20 mg PO DAILY triamcinolone acetonide 0.1% 1 appl topical BID Tobacco use date assessed: 10/28/23 Dental Screening Dental Screen Date: 10/28/23 HPI HPI Comments 2 History of Present Illness0 Details 72-year-old female with hyperlipidemia, prediabetes, GERD, sleep apnea with CPAP, CKD 3, obesity, osteoporosis, MDD, bipolar 1 disorder, hypothyroidism, generalized anxiety disorder, hypertension, vitamin-D deficiency, iron deficiency anemia, proteinuria, CHF Status post breast surgery 1996, cataract surgery on the left in 2011, cataract surgery in the right 2012 D&C 2005, eye surgery in 1992, inguinal hernia repair 1960 medial nerve decompression 2004, shoulder arthroscopy with rotator cuff repair on the right 2010, surgery for relief of elevated intra-ocular pressure bilat 2005, tonsillectomy, total abdominal hysterectomy with removal of both ovaries and 2005, excision of ganglion cyst of the wrist 1986, glaucoma surgery 2018 Specialist Psychiatry Ophthalmology Health maintenance Mammogram 01/19/2022 within normal limitsl 11/2023 done but not read yet DEXA 01/19/2022 positive osteopenia; 11/2023 DIAGNOSIS: Osteoporosis based on the lowest T-score value of -3.6 in the femoral neck applying World Health Organization criteria. Sleep Study 2018 Echo 11/2023 Echo 11/2023 trace mitral , pulmonic and tricuspid valve regurg Normal left ventricular cavity size. There is normal left ventricular wall thickness. The left ventricular systolic function is hyperdynamic. The visually estimated ejection fraction is >70%. Spectral Doppler is indicative of an impaired relaxation filling pattern. Labs from 10/29/2023 show a normal CBC, normal electrolytes, normal BUN creatinine, normal fasting glucose, normal iron studies, normal LFTs, elevated total cholesterol 203, triglycerides 188, LDL 100, HDL 66, normal B12, normal folate, TSH 4.01, free thyroxine 0.94, elevated urine microalbumin creatinine at 112.7, Vit d normal Here today to f/u C/o ongoing L knee pain. Did improve but has returned and hurts. Deprescribing PPI - today she started with every other day; feeling fine doing this so far w/o any return sx. HTN - new start HCTZ. Home BP log reviewed. All at goal of SBP < 130 DBP range 71-84 P range 76-87 Echo - reviewed today. Mammo - done but not read; waiting on comp from other imaging. DEXA - reviewed. Progression to osteoporosis. Discussed treatment options. [facility] Medical History (Updated 11/25/23 @ 11:09 by PASTORA WrightMARY [facility]) No pertinent past medical history Surgical History (Updated 11/11/23 @ 09:48 by Mariann Blandon CMA) No pertinent past surgical history Family History (Updated 11/11/23 @ 09:49 by Mariann Blandon CMA) Mother Hypertension Stroke Father Arthritis, rheumatoid Glaucoma Social History (Updated 11/11/23 @ 09:46 by Mariann Blandon CMA) Household Members: None Housing: Apartment 75 years or older and lives alone: No Alcohol intake: current Alcohol intake frequency: holidays/special occasions only Patient Tobacco Use Status: Former Tobacco user Tobacco use type: Cigarette Years Smoked: Only smoked during college e-Cigarette/Vaping Use: Never Used service: No Current occupational status: retired Current occupational exposures/hazards: No Cognitive needs: No Hearing needs: No Vision needs: No Questionnaire Thrive Questionnaire Date Thrive assessed: 10/28/23 AYANNA-7 AMB Questionnaire AYANNA-7 Date AYANNA - 7 assessed: 10/28/23 Source: Developed by Drs. Jerome Carranza, Padmini Bower, Jay Jay Gonzalez and colleagues, with an educational [place] from [employer]. Review of Systems Const All systems reviewed & are unremarkable except as noted in HPI and below Physical exam (Primary Care) Vital Signs: Last Vital Signs Pulse 76 11/25/23 10:20 BP 151/73 H 11/25/23 10:20 Pulse Ox 97 11/25/23 10:20 Oxygen Delivery Method Room Air 11/25/23 10:20 BMI result Body Mass Index 36.2 BMI Assessment/Plan discussion: High BMI High, discussed plan: lifestyle Tobacco/Smoking Status: Tobacco use Status Tobacco use date assessed 10/28/23 11/25/23 10:16 Patient Tobacco Use Status Former Tobacco user 11/25/23 10:16 Tobacco use type Cigarette 11/25/23 10:16 e-Cigarette/Vaping Use Never Used 11/25/23 10:16 Thrive Assessment: Date of Thrive Assessment Date Thrive assessed 10/28/23 11/25/23 10:16 Const Other: awake alert NAD scleras nonicteric bilat MMM RRR, 2/6 systolic murmur LSB LS dim at bases otherwise clear throughout Mood and affect appropriate Bilat hands clear of rash Trace edema BLE R>L hairless, chronic vascular skin changes Extrem Upper/lower leg/hip images: 2 1. pain with palp; pain with active and passive extension and flexion. antalgic gait favoring l side; no edema erythema or warmth Assessment and Plan Assessment & Plan (1) CHF (congestive heart failure): Comment: Echo 11/2023 trace mitral , pulmonic and tricuspid valve regurg Normal left ventricular cavity size. There is normal left ventricular wall thickness. The left ventricular systolic function is hyperdynamic. The visually estimated ejection fraction is >70%. Spectral Doppler is indicative of an impaired relaxation filling pattern. Plan: Euvolemic, medical mgmt with CCB, ARB + HCTZ Code(s): I50.9 - Heart failure, unspecified Qualifiers: Heart failure type: diastolic Heart failure chronicity: chronic Q ualified Code(s): I50.32 - Chronic diastolic (congestive) heart failure (2) Heart valve regurgitation: Comment: Echo 11/2023 trace mitral , pulmonic and tricuspid valve regurg Normal left ventricular cavity size. There is normal left ventricular wall thickness. The left ventricular systolic function is hyperdynamic. The visually estimated ejection fraction is >70%. Spectral Doppler is indicative of an impaired relaxation filling pattern. Code(s): I38 - Endocarditis, valve unspecified (3) Osteoporosis: Comment: 11/2023 DIAGNOSIS: Osteoporosis based on the lowest T-score value of -3.6 in the femoral neck applying World Health Organization criteria. Discussed tx options such as Fosomax VS referral to Rheum/endo for further workup and treatment options She wishes to check insurance coverage and get back to me. Cont wt bearing exercises, supplements. Normal Vit D + Ca levels. Code(s): M81.0 - Age-related osteoporosis without current pathological fracture Qualifiers: Osteoporosis type: other Presence of current pathological fracture: w ithout current pathological fracture Qualified Code(s): M81.8 - Other osteoporosis without current pathological fracture (4) Left knee pain: Comment: started a few weeks ago, no known injury Check xray. Then consider referral to PT or Ortho Code(s): M25.562 - Pain in left knee Qualifiers: Chronicity: acute Qualified Code(s): M25.562 - Pain in left knee Plan TOTAL TIME SPENT CARING FOR THE PATIENT TODAY WAS 45 MINUTES. THIS INCLUDES TIME SPENT BEFORE THE VISIT REVIEWING THE CHART, TIME SPENT DURING THE VISIT, AND TIME SPENT AFTER THE VISIT ON DOCUMENTATION THIS NOTE IS CONSTRUCTED USING VOICE RECOGNITION SOFTWARE. WHILE EVERY EFFORT HAS BEEN MADE TO ENSURE ACCURACY IN CARROTING MACHINE OFFBEARER, STILL ERRORS MAY HAVE BEEN INCLUDED SOMETIMES, THESE ERRORS MAY AFFECT THE CONTENT OR MEANING OF THE GIVEN SENTENCE . Orders: Orders 2 XR knee LT 4V Today M25.562 - Pain in left knee Comprehensive Met. Panel 01/31/24 E03.9 - Hypothyroidism, unspecified, E55.9 - Vitamin D deficiency, unspecified, E78.5 - Hyperlipidemia, unspecified, I10 - Essential (primary) hypertension, I50.32 - Chronic diastolic (congestive) heart failure, M81.8 - Other osteoporosis without current pathological fracture, N18.31 - Chronic kidney disease, stage 3a, R73.03 - Prediabetes Lipid Panel 01/31/24 E03.9 - Hypothyroidism, unspecified, E55.9 - Vitamin D deficiency, unspecified, E78.5 - Hyperlipidemia, unspecified, I10 - Essential (primary) hypertension, I50.32 - Chronic diastolic (congestive) heart failure, M81.8 - Other osteoporosis without current pathological fracture, N18.31 - Chronic kidney disease, stage 3a, R73.03 - Prediabetes TSH reflex Free T4 01/31/24 E03.9 - Hypothyroidism, unspecified, E55.9 - Vitamin D deficiency, unspecified, E78.5 - Hyperlipidemia, unspecified, I10 - Essential (primary) hypertension, I50.32 - Chronic diastolic (congestive) heart failure, M81.8 - Other osteoporosis without current pathological fracture, N18.31 - Chronic kidney disease, stage 3a, R73.03 - Prediabetes Vitamin D 1,25 dihydroxy 01/31/24 E03.9 - Hypothyroidism, unspecified, E55.9 - Vitamin D deficiency, unspecified, E78.5 - Hyperlipidemia, unspecified, I10 - Essential (primary) hypertension, I50.32 - Chronic diastolic (congestive) heart failure, M81.8 - Other osteoporosis without current pathological fracture, N18.31 - Chronic kidney disease, stage 3a, R73.03 - Prediabetes Magnesium 01/31/24 E03.9 - Hypothyroidism, unspecified, E55.9 - Vitamin D deficiency, unspecified, E78.5 - Hyperlipidemia, unspecified, I10 - Essential (primary) hypertension, I50.32 - Chronic diastolic (congestive) heart failure, M81.8 - Other osteoporosis without current pathological fracture, N18.31 - Chronic kidney disease, stage 3a, R73.03 - Prediabetes Parathyroid Hormone Intact 01/31/24 E03.9 - Hypothyroidism, unspecified, E55.9 - Vitamin D deficiency, unspecified, E78.5 - Hyperlipidemia, unspecified, I10 - Essential (primary) hypertension, I50.32 - Chronic diastolic (congestive) heart failure, M81.8 - Other osteoporosis without current pathological fracture, N18.31 - Chronic kidney disease, stage 3a, R73.03 - Prediabetes Hemoglobin A1c 01/31/24 E03.9 - Hypothyroidism, unspecified, E55.9 - Vitamin D deficiency, unspecified, E78.5 - Hyperlipidemia, unspecified, I10 - Essential (primary) hypertension, I50.32 - Chronic diastolic (congestive) heart failure, M81.8 - Other osteoporosis without current pathological fracture, N18.31 - Chronic kidney disease, stage 3a, R73.03 - Prediabetes Microalbumin, Random (w Creat) 01/31/24 E03.9 - Hypothyroidism, unspecified, E55.9 - Vitamin D deficiency, unspecified, E78.5 - Hyperlipidemia, unspecified, I10 - Essential (primary) hypertension, I50.32 - Chronic diastolic (congestive) heart failure, M81.8 - Other osteoporosis without current pathological fracture, N18.31 - Chronic kidney disease, stage 3a, R73.03 - Prediabetes Vitamin B12 01/31/24 E03.9 - Hypothyroidism, unspecified, E55.9 - Vitamin D deficiency, unspecified, E78.5 - Hyperlipidemia, unspecified, I10 - Essential (primary) hypertension, I50.32 - Chronic diastolic (congestive) heart failure, M81.8 - Other osteoporosis without current pathological fracture, N18.31 - Chronic kidney disease, stage 3a, R73.03 - Prediabetes Phosphorus 01/31/24 E03.9 - Hypothyroidism, unspecified, E55.9 - Vitamin D deficiency, unspecified, E78.5 - Hyperlipidemia, unspecified, I10 - Essential (primary) hypertension, I50.32 - Chronic diastolic (congestive) heart failure, M81.8 - Other osteoporosis without current pathological fracture, N18.31 - Chronic kidney disease, stage 3a, R73.03 - Prediabetes Patient Instructions: Check with insurance about coverage on Referral to specialist (Endo or Rheum) AND labs (blood work) done at specialty office. RTO IN 3 MONTHS FOR ROUTINE FU, PLEASE GET LABS DONE ABOUT 1 WEEK BEFORE. Coding Level of Care Code Est Pt Level 5 (64586) Diagnoses Chronic diastolic congestive heart failure I50.32 Heart failure type: diastolic Heart failure chronicity: chronic Heart valve regurgitation I38 Other osteoporosis without current pathological fracture M81.8 Osteoporosis type: other Presence of current pathological fracture: without current pathological fracture Acute pain of left knee M25.562 Chronicity: acute
[2023-11-25 10:20] VITALS: BP 151/73; PULSE 76; O2SAT 97; BMI 36.2
[2023-11-25 10:51] VITALS: BP 128/76
== END 2023-11-25 11:06 | disposition home or self-care (01) ==
PROVIDERS: PCP Nurse Practitioner Family; Visit Provider Nurse Practitioner Family
DX: I50.32 Chronic diastolic (congestive) heart failure (principal); I38 Endocarditis, valve unspecified; M81.8 Other osteoporosis without current pathological fracture; M25.562 Pain in left knee
CPT/HCPCS: 99215

== ENCOUNTER 2023-12-02 13:15 | Outpatient (REF) | payer MEDICARE, OTHER, SELFPAY ==
--- NOTE | ~2023-12-02 | XR_ITS ---
EXAMINATION: XR KNEE, LEFT CLINICAL INFORMATION: Pain in left knee COMPARISON: None available. TECHNIQUE: Four views of the left knee. FINDINGS: No fracture or joint effusion. Alignment is anatomic. There is moderate to marked narrowing of the patellofemoral joint compartment with marginal osteophyte formation. There is mild narrowing of the medial joint compartment with marginal osteophyte formation. There is question of a few small calcific densities within the knee joint raising concern regarding loose bodies within the joint. XR/XR knee LT 4V IMPRESSION: 1. Osteoarthritis. 2. Question of loose bodies within the knee joint. MRI scan could be obtained for further evaluation.
== END 2023-12-02 13:16 | disposition home or self-care (01) ==
LOC: HO.XRAY 13:15
PROVIDERS: Visit Provider Nurse Practitioner Family
DX: M25.562 Pain in left knee (principal)
CPT/HCPCS: 73564

== ENCOUNTER 2023-12-30 12:50 | Outpatient (AMB) | payer MEDICARE, OTHER, SELFPAY ==
[2023-12-30 12:56] VITALS: BMI 36.2
--- NOTE | 2023-12-30 12:56 | MHC.OFFVIS ---
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 Patient reports her pain lasted about 3 weeks and was unable to bear weight she states it is now a 1 on the 1-10 pain scale. She states her pain has gone away . She denies injury, injections, surgery. She denies any locking or giving way. Allergies amoxicillin [From Augmentin] Allergy (Mild, Verified 12/30/23 13:01) skin rash clavulanic acid [From Augmentin] Allergy (Mild, Verified 12/30/23 13:01) skin rash Medication List - Last Reconciled 12/30/23 by Joseph Calderon MD amlodipine 10 mg PO DAILY aripiprazole 2 mg PO DAILY atorvastatin 40 mg PO DAILY bromfenac 0.09% 1 drp ophthalmic (eye) BID calcium carbonate (Calcium 600) 1,200 mg PO DAILY cholecalciferol (vitamin D3) 50 mcg PO DAILY lamotrigine 200 mg PO DAILY levothyroxine 100 mcg PO DAILY lorazepam 0.5 mg PO BID PRN losartan-hydrochlorothiazide 100-12.5 mg 1 tab PO DAILY metformin ER 500 mg PO BID multivitamin 1 tab PO DAILY omeprazole 20 mg PO DAILY triamcinolone acetonide 0.1% 1 appl topical BID PFSH Medical History (Updated 12/30/23 @ 13:15 by Joseph Calderon MD) No pertinent past medical history Surgical History (Updated 11/11/23 @ 09:48 by Mariann Blandon CMA) No pertinent past surgical history Family History (Updated 11/11/23 @ 09:49 by Mariann Blandon CMA) Mother Hypertension Stroke Father Arthritis, rheumatoid Glaucoma Social History (Updated 11/11/23 @ 09:46 by Mariann Blandon CMA) Household Members: None Housing: Apartment [address] years or older and lives alone: No Alcohol intake: current Alcohol intake frequency: holidays/special occasions only Patient Tobacco Use Status: Former Tobacco user Tobacco use type: Cigarette Years Smoked: Only smoked during college e-Cigarette/Vaping Use: Never Used service: No Current occupational status: retired Current occupational exposures/hazards: No Cognitive needs: No Hearing needs: No Vision needs: No Physical Exam Vital Signs: BMI result Body Mass Index 36.2 Const Other: Well-nourished well-developed very friendly female awake alert and oriented x3 in no acute distress Extrem Other: Bilateral lower extremity examination shows good capillary refill, no skin lesions noted, normal sensation light touch Left knee examination shows a minimal effusion, minimal crepitus with range of motion, minimal discomfort with range of motion, no instability Results Reviewed Results Reviewed: X-rays of the patient's left knee show mild to moderate joint space narrowing most significant in the patellofemoral joint, no acute bony abnormalities Assessment & Plan Assessment & Plan (1) Arthritis of left knee: Code(s): M17.12 - Unilateral primary osteoarthritis, left knee Category: Medical Plan Ms. Ram presents with intermittent left knee discomfort due to early degenerative joint disease. I had a lengthy discussion with the patient regarding the treatment options. At this point the patient's symptoms are tolerable to her. She will continue with her activity modifications. She will follow up with me on an as-needed basis should her symptoms worsen in any way. Feel free to call me at any time should questions regarding orthopedic management arise. I spent 21 minutes in reviewing the patient's records and imaging studies, seeing the patient and documenting in the medical record. Coding Level of Care Code New Pt Level 2 (87523) Diagnoses Arthritis of left knee M17.12
== END 2023-12-30 13:13 | disposition home or self-care (01) ==
PROVIDERS: PCP Nurse Practitioner Family; Visit Provider Orthopaedic Surgery
DX: M17.12 Unilateral primary osteoarthritis, left knee (principal)
CPT/HCPCS: 99203

== ENCOUNTER → 2023-12-30 12:50 | Outpatient (BNVA) | payer MEDICARE, OTHER, SELFPAY | PROVIDERS: PCP Nurse Practitioner Family; Visit Provider Orthopaedic Surgery | DX: M17.12 Unilateral primary osteoarthritis, left knee (principal) | CPT/HCPCS: 99202 ==

== ENCOUNTER 2024-01-13 10:25 | Outpatient (REF) | payer MEDICARE, OTHER, SELFPAY ==
[2024-01-13 11:51] LABS: Estimated Average Glucose 108 mg/dL; Hemoglobin A1c % 5.4 % (<6.0)
[2024-01-13 12:02] LABS: Parathyroid Hormone Intact 65.5 pg/mL (8.7-77.1)
[2024-01-13 12:07] LABS: Alanine Aminotransferase 11 U/L (0-31); Albumin Level 4.4 g/dL (3.5-5.0); Alkaline Phosphatase 61 U/L (39-117); Anion Gap 11 (12-20); Aspartate Amino Transferase 15 U/L (5-31); Bilirubin Total 0.4 mg/dL (0.0-1.0); Blood Urea Nitrogen 26 mg/dL (9-16); Calcium 10.1 mg/dL (8.4-10.2); Carbon Dioxide 30 mmol/L (22-29); Chloride 105 mmol/L (96-108); Cholesterol 176 mg/dL (<200); Estimated Glomerular Filt Rate > 60; Glucose Random 93 mg/dL (60-115); HDL Cholesterol 61 mg/dL (>40); LDL Cholesterol Calculated 92 mg/dL (<100); Magnesium 2.3 mg/dL (1.6-2.6); Phosphorus 3.5 mg/dL (2.7-4.5); Potassium 4.1 mmol/L (3.3-5.1); Sodium 142 mmol/L (135-145); Total Protein 7.2 g/dL (6.5-8.0); Triglycerides 117 mg/dL (<150)
[2024-01-13 12:10] LABS: Creatinine Urine 34.18 mg/dL
[2024-01-13 12:23] LABS: TSH reflex Free T4 4.92 uIU/mL (0.32-4.0); Vitamin B12 446 pg/mL (200-900)
[2024-01-13 12:55] LABS: Free T4 (Free Thyroxine) 0.93 ng/dL (0.71-1.85)
[2024-01-18 16:03] LABS: VITAMIN D (1,25 OH) D3 46 pg/mL; Vit D (1,25-Dihydroxy) Total 46 pg/mL (18-72); Vitamin D (1,25 OH) D2 <8 pg/mL
== END 2024-01-13 10:26 | disposition home or self-care (01) ==
LOC: HO.WFDLDS 10:25
PROVIDERS: Visit Provider Nurse Practitioner Family
DX: I50.32 Chronic diastolic (congestive) heart failure (principal); M81.8 Other osteoporosis without current pathological fracture; E55.9 Vitamin D deficiency, unspecified; E03.9 Hypothyroidism, unspecified; E78.5 Hyperlipidemia, unspecified; I10 Essential (primary) hypertension; R73.03 Prediabetes; N18.31 Chronic kidney disease, stage 3a
CPT/HCPCS: 36415; 80053; 80061; 82043; 82570; 82607; 82652; 83036; 83735; 83970; 84100; 84439; 84443

== ENCOUNTER 2024-01-20 12:26 | Outpatient (AMB) | payer MEDICARE, OTHER, SELFPAY ==
--- NOTE | 2024-01-20 12:36 | A.OFFPC_ITS ---
Vital Signs 01/20/24 12:40 Height 5 ft 2 in Weight 193 lb 2 oz BMI 35.3 BP 128/72 Blood Pressure Location Rt brachial Position Sitting Pulse 74 Pulse Source Pulse Oximeter Temp Source Oral Pulse Oximetry (%) 98 Oxygen Delivery Method Room Air Intake Visit Reasons: Routine FU/labs Allergies amoxicillin [From Augmentin] Allergy (Mild, Verified 01/20/24 13:18) skin rash clavulanic acid [From Augmentin] Allergy (Mild, Verified 01/20/24 13:18) skin rash Medication List - Last Reconciled 01/20/24 by Gill Saldivar, [employer]- amlodipine 10 mg PO DAILY aripiprazole 2 mg PO DAILY atorvastatin 40 mg PO DAILY bromfenac 0.09% 1 drp ophthalmic (eye) BID calcium carbonate (Calcium 600) 1,200 mg PO DAILY cholecalciferol (vitamin D3) 50 mcg PO DAILY lamotrigine 200 mg PO DAILY levothyroxine 100 mcg PO DAILY lorazepam 0.5 mg PO BID PRN losartan-hydrochlorothiazide 100-12.5 mg 1 tab PO DAILY metformin ER 500 mg PO BID multivitamin 1 tab PO DAILY omeprazole 20 mg PO DAILY triamcinolone acetonide 0.1% 1 appl topical BID Tobacco use date assessed: 10/28/23 Dental Screening Dental Screen Date: 10/28/23 HPI HPI Comments History of Present Illness Details 72-year-old female with hyperlipidemia, prediabetes, GERD, sleep apnea with CPAP, CKD 3, obesity, osteoporosis, MDD, bipolar 1 disorder, hypothyroidism, generalized anxiety disorder, hypertension, vitamin-D deficiency, iron deficiency anemia, proteinuria, CHF Status post breast surgery 1996, cataract surgery on the left in 2011, cataract surgery in the right 2012 D&C 2005, eye surgery in 1992, inguinal hernia repair 1960 medial nerve decompression 2004, shoulder arthroscopy with rotator cuff repair on the right 2010, surgery for relief of elevated intra-ocular pressure bilat 2005, tonsillectomy, total abdominal hysterectomy with removal of both ovaries and 2005, excision of ganglion cyst of the wrist 1986, glaucoma surgery 2018 Specialist Psychiatry Ophthalmology Health maintenance Mammogram 12/2023 WNL DEXA 01/19/2022 positive osteopenia; 11/2023 DIAGNOSIS: Osteoporosis based on the lowest T-score value of -3.6 in the femoral neck applying World Health Organization criteria. Sleep Study 2019 Echo 11/2023 Echo 11/2023 trace mitral , pulmonic and tricuspid valve regurg Normal left ventricular cavity size. There is normal left ventricular wall thickness. The left ventricular systolic function is hyperdynamic. The visually estimated ejection fraction is >70%. Spectral Doppler is indicative of an impaired relaxation filling pattern. Labs from 10/29/2023 show a normal CBC, normal electrolytes, normal BUN creatinine, normal fasting glucose, normal iron studies, normal LFTs, elevated total cholesterol 203, triglycerides 188, LDL 100, HDL 66, normal B12, normal folate, TSH 4.01, free thyroxine 0.94, elevated urine microalbumin creatinine at 112.7, Vit d normal Labs 01/13/2024 show normal electrolytes, BUN 26, creatinine 0.87, GFR greater than 60, hemoglobin A1c 5.4%, normal phosphorus, normal magnesium, normal LFTs, total cholesterol 176, triglycerides 117, LDL 92, HDL 61, normal B12, TSH 4.92, normal T4, normal parathyroid hormone, elevated urine microalbumin creatinine ratio 38, vitamin-D normal Here today to f/u on chronic conditions and review labs. BP log reviewed and remains at goal on current meds. TSH mildly elevated, reviewed admin of thyroid med, taking w/ Ca supplement. PLan will be to move Ca to HS and then repeat TSH at next lab check. Left knee is feeling ok at htis time. Ortho consult reviewed. PPI - only needs once per week. otherwise having some sx. Mammo 11/2023 BI-RADS BI-RADS 2 - Benign Findings Lipid prof has improved DEXA - reviewed. Progression to osteoporosis. Discussed treatment options. Would like referral to Rheum [facility] Medical History (Updated 01/21/24 @ 16:54 by Gill Saldivar, [facility] No pertinent past medical history Surgical History (Updated 11/11/23 @ 09:48 by Mariann Blandon CMA) No pertinent past surgical history Family History (Updated 11/11/23 @ 09:49 by Mariann Blandon CMA) Mother Hypertension Stroke Father Arthritis, rheumatoid Glaucoma Social History (Updated 11/11/23 @ 09:46 by Mariann Blandon CMA) Household Members: None Housing: Apartment 75 years or older and lives alone: No Alcohol intake: current Alcohol intake frequency: holidays/special occasions only Patient Tobacco Use Status: Former Tobacco user Tobacco use type: Cigarette Years Smoked: Only smoked during college e-Cigarette/Vaping Use: Never Used service: No Current occupational status: retired Current occupational exposures/hazards: No Cognitive needs: No Hearing needs: No Vision needs: No Questionnaire Thrive Questionnaire Date Thrive assessed: 10/28/23 AYANNA-7 AMB Questionnaire AYANNA-7 Date AYANNA - 7 assessed: 10/28/23 Source: Developed by Drs. Jerome Carranza, Padmini Bower, Jay Jay Gonzalez and colleagues, with an educational [place] from [employer]. Review of Systems Const All systems reviewed & are unremarkable except as noted in HPI and below Physical exam (Primary Care) Vital Signs: Last Vital Signs Pulse 74 01/20/24 12:40 BP 128/72 01/20/24 12:40 Pulse Ox 98 01/20/24 12:40 Oxygen Delivery Method Room Air 01/20/24 12:40 BMI result Body Mass Index 35.3 BMI Assessment/Plan discussion: High BMI High, discussed plan: lifestyle Tobacco/Smoking Status: Tobacco use Status Tobacco use date assessed 10/28/23 01/20/24 12:38 Patient Tobacco Use Status Former Tobacco user 01/20/24 12:38 Tobacco use type Cigarette 01/20/24 12:38 e-Cigarette/Vaping Use Never Used 01/20/24 12:38 Thrive Assessment: Date of Thrive Assessment Date Thrive assessed 10/28/23 01/20/24 12:38 Const Other: awake alert NAD scleras nonicteric bilat MMM RRR, 2/6 systolic murmur LSB LS dim at bases otherwise clear throughout Mood and affect appropriate Bilat hands clear of rash Trace edema BLE R>L hairless, chronic vascular skin changes Assessment and Plan Assessment & Plan (1) Osteoporosis: Comment: 11/2023 DIAGNOSIS: Osteoporosis based on the lowest T-score value of -3.6 in the femoral neck applying World Health Organization criteria. Discussed tx options such as Fosomax VS referral to Rheum/endo for further workup and treatment options Cont wt bearing exercises, supplements. Normal Vit D + Ca levels. Refer to rheum Code(s): M81.0 - Age-related osteoporosis without current pathological fracture Qualifiers: Osteoporosis type: other Presence of current pathological fracture: without current pathological fracture Qualified Code(s): M81.8 - Other osteoporosis without current pathological fracture (2) Hyperlipidemia LDL goal <100: Comment: on atorvastatin 40mg QD LDL at goal, continue atorvastatin 40 mg daily Code(s): E78.5 - Hyperlipidemia, unspecified (3) Hypothyroid: Comment: on levothyroxine 100mcg QD mild elevation in TSH, however w/o sx, normal t4., continue levothyroxine at current dose Code(s): E03.9 - Hypothyroidism, unspecified Qualifiers: Hypothyroidism type: acquired Qualified Code(s): E03.9 - H ypothyroidism, unspecified (4) HTN (hypertension): Comment: BP goal < 130/80. losartan 100 mg/hydrochlorothiazide 12.5 mg 1 tablet once per day sent to the pharmacy should take this along with the amlodipine 10 mg daily. Code(s): I10 - Essential (primary) hypertension Qualifiers: Hypertension type: primary hypertension Qualified Code(s): I10 - Essential (primary) hypertension Plan This note is constructed using voice recognition software. While every effort has been made to ensure accuracy in derrick boat runner, still errors may have been included Sometimes, these errors may affect the content or meaning of the given sentence . Total time spent caring for the patient today was 44 minutes. This includes time spent before the visit reviewing the chart, time spent during the visit, and time spent after the visit on documentation Orders: Orders Lipid Panel 04/10/24 E03.9 - Hypothyroidism, unspecified, E78.5 - Hyperlipidemia, unspecified TSH reflex Free T4 04/10/24 E03.9 - Hypothyroidism, unspecified, E78.5 - Hyperlipidemia, unspecified Referrals Rheumatology Referral M81.8 - Other osteoporosis without current pathological fracture Patient Instructions: Please continue to take your medications as currently prescribed. Please be sure to take your thyroid medication 2 hours before your calcium supplementation. This could be affecting your TSH levels which are mildly elevated today. We will repeat her TSH levels before the next office visit. You had a symptoms there was no need to change her medications especially given the normal T4. Your LDL and blood pressure at goal on the current medications. We will refer her to rheumatology for evaluation and treatment of the osteo porosis. Return to the office in April for a 30 minute follow up for chronic conditions with fasting labs done 1 week before. Always remember to return to office sooner should anything change or you need me sooner. Coding Level of Care Code Est Pt Level 5 (91287) Diagnoses Other osteoporosis without current pathological fracture M81.8 Osteoporosis type: other Presence of current pathological fracture: without current pathological fracture Hyperlipidemia LDL goal <100 E78.5 Acquired hypothyroidism E03.9 Hypothyroidism type: acquired Primary hypertension I10 Hypertension type: primary hypertension
[2024-01-20 12:40] VITALS: BP 128/72; PULSE 74; O2SAT 98; BMI 35.3
== END 2024-01-20 13:29 | disposition home or self-care (01) ==
PROVIDERS: PCP Nurse Practitioner Family; Visit Provider Nurse Practitioner Family
DX: M81.8 Other osteoporosis without current pathological fracture (principal); E78.5 Hyperlipidemia, unspecified; E03.9 Hypothyroidism, unspecified; I10 Essential (primary) hypertension
CPT/HCPCS: 99215

== ENCOUNTER 2024-03-23 09:03 | Outpatient (AMB) | payer MEDICARE, OTHER, SELFPAY ==
[2024-03-23 09:24] VITALS: BP 140/90; PULSE 77; O2SAT 98; BMI 37.7
--- NOTE | 2024-03-23 09:24 | A.OFFVIS_ITS ---
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 Allergies amoxicillin [From Augmentin] Allergy (Mild, Verified 03/23/24 09:37) skin rash clavulanic acid [From Augmentin] Allergy (Mild, Verified 03/23/24 09:37) skin rash Medication List - Last Reconciled 03/23/24 by PASTORA Calle amlodipine 10 mg PO DAILY aripiprazole 2 mg PO DAILY atorvastatin 40 mg PO DAILY bromfenac 0.09% 1 drp ophthalmic (eye) BID calcium carbonate (Calcium 600) 1,200 mg PO DAILY cholecalciferol (vitamin D3) 50 mcg PO DAILY lamotrigine 200 mg PO DAILY levothyroxine 100 mcg PO DAILY lorazepam 0.5 mg PO BID PRN losartan-hydrochlorothiazide 100-12.5 mg 1 tab PO DAILY metformin ER 500 mg PO BID multivitamin 1 tab PO DAILY omeprazole 20 mg PO DAILY triamcinolone acetonide 0.1% 1 appl topical BID HPI Comments Details: 73-yr-old female presents for new in-person patient visit for sleep consultation to establish care locally for management of her BRIANNA. Patient reports she was dx'd w/ sleep apnea and starting using PAP tx in her late 40s. She initially underwent sleep eval d/t snoring, poor sleep, daytime sleepiness. Her last HST was 2 yrs ago in [place], as she needed a PAP machine replacement. She has a [employer] machine. She believes her machine is set to APAP, but does not know the specific settings. She reports she uses her machine nightly and sleeps well with her CPAP machine. 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 [facility] Medical History (Updated 03/26/24 @ 15:09 by PASTORA Calle) No pertinent past medical history Surgical History (Updated 03/23/24 @ 09:37 by LYN Mccain) History of rotator cuff surgery H/O: hysterectomy No pertinent past surgical history Family History Mother Hypertension Stroke Father Arthritis, rheumatoid Glaucoma Social History Household Members: None Housing: Apartment [address] years or older and lives alone: No Alcohol intake: current Alcohol intake frequency: holidays/special occasions only Patient Tobacco Use Status: Former Tobacco user Tobacco use type: Cigarette Years Smoked: Only smoked during college e-Cigarette/Vaping Use: Never Used service: No Current occupational status: retired Current occupational exposures/hazards: No Cognitive needs: No Hearing needs: No Vision needs: No Physical Exam Vital Signs: Last Vital Signs Pulse 77 03/23/24 09:24 BP 140/90 H 03/23/24 09:24 Pulse Ox 98 03/23/24 09:24 Oxygen Delivery Method Room Air 03/23/24 09:24 BMI result Body Mass Index 37.7 Const General: no acute distress Orientation/consciousness: patient oriented x3 HEENT Other: Mallampati stage 4 Mild visible deviated nose Resp Effort & Inspection: normal respiratory effort and able to speak in complete sentences Cardio Rate: regular rate Rhythm: regular rhythm Heart sounds: Murmur heart sound present Neuro General: patient oriented x3 Psych Mental Status: mental status grossly normal Speech and movement: Clear speech present Attitude: cooperative Assessment & Plan Assessment & Plan (1) BRIANNA on CPAP: Code(s): G47.33 - Obstructive sleep apnea (adult) (pediatric) Category: Medical Plan Continue PAP therapy nightly > 4 hrs, as pt has good clinical effect from use. We will reach out to previous Resp supplier to determine her device settings and obtain previous sleep study reports if possible. We will connect pt to a local resp supply company, as pt is in need of new PAP supplies. Service transfer order written. Previous resp supplier- [facility], in [place], [place], phone [phone] Device [employer] [facility]: SN [id number] Mask: Nasal pillow/cushion f/u in 6 months or sooner prn. Coding Level of Care Code New Pt Level 3 (44377) Diagnoses BRIANNA on CPAP G47.33
== END 2024-03-23 10:18 | disposition home or self-care (01) ==
PROVIDERS: PCP Family Medicine; Visit Provider Nurse Practitioner Family
DX: G47.33 Obstructive sleep apnea (adult) (pediatric) (principal)
CPT/HCPCS: 99203

== ENCOUNTER → 2024-03-23 09:03 | Outpatient (BNVA) | payer MEDICARE, OTHER, SELFPAY | PROVIDERS: PCP Family Medicine; Visit Provider Nurse Practitioner Family | DX: G47.33 Obstructive sleep apnea (adult) (pediatric) (principal); Z99.89 Dependence on other enabling machines and devices | CPT/HCPCS: 99202 ==

== ENCOUNTER 2024-04-03 09:09 | Outpatient (REF) | payer MEDICARE, OTHER, SELFPAY ==
[2024-04-03 12:34] LABS: Cholesterol 189 mg/dL (<200); HDL Cholesterol 62 mg/dL (>40); LDL Cholesterol Calculated 95 mg/dL (<100); Triglycerides 160 mg/dL (<150)
[2024-04-03 12:37] LABS: TSH reflex Free T4 2.82 uIU/mL (0.32-4.0)
== END 2024-04-03 09:10 | disposition home or self-care (01) ==
LOC: HO.WFDLDS 09:09
PROVIDERS: Visit Provider Nurse Practitioner Family
DX: E03.9 Hypothyroidism, unspecified (principal); E78.5 Hyperlipidemia, unspecified
CPT/HCPCS: 36415; 80061; 84443

== ENCOUNTER 2024-05-30 11:50 | Outpatient (AMB) | payer MEDICARE, OTHER, SELFPAY ==
--- NOTE | 2024-05-30 12:00 | AM.OFFVISMDC ---
Intake Vital Signs 05/30/24 12:01 Height 5 ft 2 in Weight 205 lb 8 oz BMI 37.6 BP 134/78 Blood Pressure Location Lt brachial Position Sitting Respiration 14 Pulse 66 Pulse Source Pulse Oximeter Pulse Oximetry (%) 98 Oxygen Delivery Method Room Air Intake Visit Reasons: Annual Exam Intake Note: annual exam and needs refill on levothyroxine. Allergies amoxicillin [From Augmentin] Allergy (Mild, Verified 05/30/24 12:00) skin rash clavulanic acid [From Augmentin] Allergy (Mild, Verified 05/30/24 12:00) skin rash Medication List - Last Reconciled 05/30/24 by Gill Saldivar, TERMINAL MAKEUP OPERATOR- amlodipine 10 mg PO DAILY aripiprazole 2 mg PO DAILY atorvastatin 40 mg PO DAILY bromfenac 0.09% 1 drp ophthalmic (eye) BID calcium carbonate (Calcium 600) 1,200 mg PO DAILY cholecalciferol (vitamin D3) 50 mcg PO DAILY lamotrigine 200 mg PO DAILY levothyroxine 100 mcg PO DAILY lorazepam 0.5 mg PO BID PRN losartan-hydrochlorothiazide 100-12.5 mg 1 tab PO DAILY metformin ER 500 mg PO BID multivitamin 1 tab PO DAILY omeprazole 20 mg PO DAILY triamcinolone acetonide 0.1% 1 appl topical BID Do you need a note to return to daycare/school/sports/work: No HPI HPI Comments History of Present Illness Details Here today for AWV. The Medicare Annual Wellness Visit (AWV) is a yearly appointment with a health professional to identify health risks and help reduce them and to create or update a personalized prevention plan. During a Medicare AWV, health professionals should also review any current opioid prescriptions, detect any cognitive impairment, and establish or update medical and family history. 73-year-old female with hyperlipidemia, prediabetes, GERD, sleep apnea with CPAP, CKD 3, obesity, osteoporosis, MDD, bipolar 1 disorder, hypothyroidism, generalized anxiety disorder, hypertension, vitamin-D deficiency, iron deficiency anemia, proteinuria, CHF, glaucoma, stress incont Status post breast surgery 1996, cataract surgery on the left in 2011, cataract surgery in the right 2013 D&C 2005, eye surgery in 1992, inguinal hernia repair 1960 medial nerve decompression 2004, shoulder arthroscopy with rotator cuff repair on the right 2010, surgery for relief of elevated intra-ocular pressure bilat 2005, tonsillectomy, total abdominal hysterectomy with removal of both ovaries and 2006, excision of ganglion cyst of the wrist 1986, glaucoma surgery 2018 Social: Will be starting a job for 15 hours/week at [employer] working in activities family hx: as below Specialists: Psychiatry [facility] Op[facility] Dr Briggs Rheum first appt 07/11/24 Sleep Med Ortho PRN only Health Maintenance: See scanned preventative medicine assessment with personalized health plan and screening schedule Mammogram 11/19/2023 WNL DEXA 11/2023 DIAGNOSIS: Osteoporosis based on the lowest T-score value of -3.6 in the femoral neck applying World Health Organization criteria. Vaccines - UTD, will get latest PCV Colonoscopy 2022 normal 10 year recall * i dont have this record, per pt report Echo 11/2023 Echo 11/2023 trace mitral , pulmonic and tricuspid valve regurg Normal left ventricular cavity size. There is normal left ventricular wall thickness. The left ventricular systolic function is hyperdynamic. The visually estimated ejection fraction is >70%. Spectral Doppler is indicative of an impaired relaxation filling pattern. AAA screen: NA EKG: declined Visual Acuity: declined, active w/ Optho, routine fu last 05/2024 Hearing Screening: no concerns ACP: blank HCP MOLST and 5 wishes provided today Dietary/Nutrition/Exercise Edu provided: Y During the course of the visit the patient was educated and counseled about appropriate screening and preventative services. Patient instructions were provided to the patient in written or electronic format. I have reviewed and verified the above information. Has some problems she would like to review today: Chronic folliculitis of the scalp, picks at the skin and makes it worse. Has used several [id number] without relief. She is proper to her left arm. Denies any known injury. Complaints of urinary frequency without dysuria, hematuria. Has never had a UTI. TSH normal 03/2024 now taking without calcium, refill needed Skin of bilat hands is dry and flaking and itchy at times used topical creams and steroid tx which helped w itch but not w/ dry skin. Use VIt A&D oint. A1c now 6.3% this is increased from 12/2023 No dietary changes Taking metformin as prescribed, Wt stable PPI needing 4 times a week now to control GERD Plan: Start clobetasol 0.05% 1 application at bedtime to the scalp use p.r.n. for a maximum of 2 consecutive weeks To treat the dry skin of the hands we will prescribe ammonium Lac-Hydrin 12% apply to hands daily If this does not help can consider referral to Dermatology Offered and declined medications for overactive bladder. UA today negative. Continue all medications as currently prescribed. Refill sent as needed Return to office in 4 months for routine follow up with labs done 1 week before, sooner as needed This note is constructed using voice recognition software. While every effort has been made to ensure accuracy in spar machine operator helper, still errors may have been included Sometimes, these errors may affect the content or meaning of the given sentence . An additional 22 was spent addressing the problem(s) noted at todays visit. This includes time spent before the visit reviewing the chart, time spent during the visit, and time spent after the visit on documentation [facility] Medical History (Updated 05/30/24 @ 17:[address] [facility]) No pertinent past medical history Surgical History (Updated 03/23/24 @ 09:37 by LYN Mccain) History of rotator cuff surgery H/O: hysterectomy No pertinent past surgical history Family History Mother Hypertension Stroke Father Arthritis, rheumatoid Glaucoma Social History Household Members: None Housing: Apartment 75 years or older and lives alone: No Alcohol intake: current Alcohol intake frequency: holidays/special occasions only Patient Tobacco Use Status: Former Tobacco user Tobacco use type: Cigarette Years Smoked: Only smoked during college e-Cigarette/Vaping Use: Never Used service: No Current occupational status: retired Current occupational exposures/hazards: No Cognitive needs: No Hearing needs: No Vision needs: No Questionnaire Medicare Wellness Checkup What [age]?: [age] What gender do you identify with?: female During the past 4 weeks, how much have you been bothered by emotional problems such as feeling anxious, depressed, irritable, sad or downhearted, and blue?: not at all During the past 4 weeks, has your physical & emotional health limited your social activities with family, friends, neighbors, or groups?: not at all During the past 4 weeks, how much bodily pain have you generally had?: no pain During the past 4 weeks, was someone available to help you if you needed & wanted help?: yes, as much as I wanted During the past 4 weeks, what was the hardest physical activity you could do for at least 2 minutes?: moderate Can you get to places out of walking distance without help? (For eg., can you travel alone on buses, taxis or drive your car?): Yes Can you go shopping for groceries or clothes without someone's help?: Yes Can you prepare your own meals?: Yes Can you do your housework without help?: Yes Because of any health problems, do you need the help of another person with your personal care needs such as eating, bathing, dressing or getting around the house?: No Can you handle your own money without help?: Yes During the past 4 weeks, how would you rate your health in general?: excellent During the past 4 weeks how have things been going for you?: very well; could hardly better Are you having difficulties driving your car?: no Do you always fasten your seat belt when you are in a car?: yes, usually During past 4 weeks, have you been bothered by the following: never: Falling or dizzy when standing up, Sexual problems?, Trouble eating well? and Problems using the telephone? Have you fallen 2 or more times in the past year?: No Are you afraid of falling?: Yes Are you a smoker?: no During the past 4 weeks, how many drinks of wine, beer, or other alcoholic beverages did you have?: no alcohol at all Do you exercise for about 20 minutes 3 or more times a week?: yes, some of the time Have you been given information to help with the following?: no: Hazards in your house that might hurt you? and no: Keeping track of your medications? How often do you have trouble taking medicines the way you have been told to take them?: I always take medicine as prescribed How confident are you that you can control & manage most of your health problems?: very confident What is your race?: White Activity of Daily Living Bathing - sponge bath, tub bath or shower: receives no assistance (gets in/out by self, if usual bathing means Dressing - getting clothes from closets & drawers, including inner/outer garments & fasteners.: gets clothes & gets completely dressed without help Toileting - going to the 'toilet room' for urine/bowel elimination & cleaning self/arranging clothes: goes to toilet room, cleans self, arranges clothes without help Transfer: moves in & out of bed and chair without help (may use support object) Continence: controls urination/bowel movements completely by self Feeding: feeds self without help Total Score: 0 Information obtained from: patient Using telephone: independent Traveling: independent Shopping: independent Preparing meals: independent Housework: independent Taking medicine: independent Managing money: independent PHQ-9 Over the last 2 weeks, how often have you been bothered by any of the following problems? 1. Little interest or pleasure in doing things: not at all 2. Feeling down, depressed, or hopeless: not at all 3. Trouble falling or staying asleep, or sleeping too much: several days 4. Feeling tired or having little energy: several days 5. Poor appetite or overeating: not at all 6. Feeling bad about yourself - or that you are a failure or have let yourself or your family down: not at all 7. Trouble concentrating on things, such as reading the newspaper or watching television: not at all 8. Moving or speaking so slowly that other people could have noticed. Or the opposite - being so fidgety or restless that you have been moving around a lot more than usual: not at all 9. Thoughts that you would be better off or of hurting yourself in some way: not at all Total score: 2 Depression Screening Interpretation: Negative Depression Screening Done: Yes 99940 - PHQ-9 Billing: Yes Source: Developed by Drs. Jerome Carranza, Padmini Bower, Jay Jay Gonzalez and colleagues, with an educational [place] from [employer]. Physical Exam Vital Signs: Last Vital Signs Pulse 66 05/30/24 12:01 Resp 14 05/30/24 12:01 BP 134/78 05/30/24 12:01 Pulse Ox 98 05/30/24 12:01 Oxygen Delivery Method Room Air 05/30/24 12:01 BMI result Body Mass Index 37.6 Office Procedures Hearing Screen Left Overall Hearing Screening Results: Pass 55443 - Screening Test, pure tone, air only Results AMB Hemoglobin A1c AMB Hemoglobin A1c 6.3 % Last Edit by Guera Faustin MA on 05/30/24 12:28 AMB Urinalysis, Automated UA Leukoctes 0 Sakina/uL Last Edit by Guera Faustin MA on 05/30/24 12:59 UA Nitrite Negative Last Edit by Guera Faustin MA on 05/30/24 12:59 UA Urobilinogen 3.5 mg/dL Last Edit by Guera Faustin MA on 05/30/24 12:59 UA Protein mg/dL Last Edit by Guera Faustin MA on 05/30/24 12:59 0.15 Guera Faustin 05/30/24 12:59 UA pH 7.0 Last Edit by Guera Faustin MA on 05/30/24 12:59 UA Blood 0 Frankie/uL Last Edit by Guera Faustin MA on 05/30/24 12:59 UA Specific [place] 1.010 Last Edit by Guera Faustin MA on 05/30/24 12:59 UA Ketone Negative Last Edit by Guera Faustin MA on 05/30/24 12:59 UA Bilirubin 0 mg/dL Last Edit by Guera Faustin MA on 05/30/24 12:59 UA Glucose 0 mg/dL Last Edit by Guera Faustin MA on 05/30/24 12:59 Results Reviewed Results Reviewed: Laboratory Last Values Hgb A1c (Clinic) 6.3 % (4.0-6.0) H 05/30/24 12:17 Urine pH (Auto) 7.0 05/30/24 12:17 Specific [place] (Auto) 1.010 05/30/24 12:17 Urine Protein (Auto) mg/dL 05/30/24 12:17 Glucose (UA)(Auto) 0 mg/dL 05/30/24 12:17 Urine Ketones (Auto) Negative 05/30/24 12:17 Urine Blood (Auto) 0 Frankie/uL 05/30/24 12:17 Urine Nitrite (Auto) Negative 05/30/24 12:17 Urine Bilirubin (Auto) 0 mg/dL 05/30/24 12:17 Urine Urobilinogen (Auto) 3.5 mg/dL 05/30/24 12:17 Leukocyte Esterase (Auto) 0 Sakina/uL 05/30/24 12:17 Assessment & Plan Assessment & Plan (1) Encounter for subsequent annual wellness visit (AWV) in Medicare patient: Code(s): Z00.00 - Encounter for general adult medical examination without abnormal findings Plan: . (2) Prediabetes: Comment: on Metformin ER 500mg po BID Code(s): R73.03 - Prediabetes Plan: . (3) Dermatitis: Comment: of hands & scalp Code(s): L30.9 - Dermatitis, unspecified Plan: . (4) Overactive bladder: Code(s): N32.81 - Overactive bladder Plan: . (5) Hypothyroid: Comment: on levothyroxine 100mcg QD Code(s): E03.9 - Hypothyroidism, unspecified Qualifiers: Hypothyroidism type: acquired Qualified Code(s): E03.9 - Hypothyroidism, unspecified Plan: . (6) ACP (advance care planning): Code(s): Z71.89 - Other specified counseling Plan: . (7) GERD (gastroesophageal reflux disease): Code(s): K21.9 - Gastro-esophageal reflux disease without esophagitis Qualifiers: Esophagitis presence: without esophagitis Qualified Code(s): K21.9 - Gastro-esophageal reflux disease without esophagitis Plan: . (8) CKD (chronic kidney disease) stage 3, GFR 30-59 ml/min: Comment: based on previous records; ordered updated labs. Code(s): N18.30 - Chronic kidney disease, stage 3 unspecified Qualifiers: Chronic kidney disease stage 3 subtype: stage 3a (GFR 45-59) Qualified Code(s): N18.31 - Chronic kidney disease, stage 3a (9) Hyperlipidemia LDL goal <100: Comment: on atorvastatin 40mg QD LDL at goal, continue atorvastatin 40 mg daily Code(s): E78.5 - Hyperlipidemia, unspecified Plan . Orders: Orders AMB Urinalysis Automated Today Z13.9 - Encounter for screening, unspecified Hemoglobin A1c 09/03/24 E03.9 - Hypothyroidism, unspecified, E78.5 - Hyperlipidemia, unspecified, N18.31 - Chronic kidney disease, stage 3a, R73.03 - Prediabetes TSH reflex Free T4 09/03/24 E03.9 - Hypothyroidism, unspecified, E78.5 - Hyperlipidemia, unspecified, N18.31 - Chronic kidney disease, stage 3a, R73.03 - Prediabetes Vitamin B12 and Folate 09/03/24 E03.9 - Hypothyroidism, unspecified, E78.5 - Hyperlipidemia, unspecified, N18.31 - Chronic kidney disease, stage 3a, R73.03 - Prediabetes AMB Hemoglobin A1c Today Z13.9 - Encounter for screening, unspecified Lipid Panel 09/03/24 E03.9 - Hypothyroidism, unspecified, E78.5 - Hyperlipidemia, unspecified, N18.31 - Chronic kidney disease, stage 3a, R73.03 - Prediabetes Comprehensive Silva. Panel Fast 09/03/24 E03.9 - Hypothyroidism, unspecified, E78.5 - Hyperlipidemia, unspecified, N18.31 - Chronic kidney disease, stage 3a, R73.03 - Prediabetes Medications: New atorvastatin 40 mg PO DAILY 90 tabs 1RF clobetasol 0.05% use sparingly, do not use for more than 2 consecutive weeks 1 appl topical BEDTIME 4 weeks PRN 118 mL 2RF itchy scalp ammonium lactate 12% apply to hands 1 appl topical DAILY 400 grams 2RF Refilled levothyroxine 100 mcg PO DAILY 90 tabs 1RF amlodipine 10 mg PO DAILY 90 tabs 1RF Patient Instructions: Health screenings for women You should visit your health care provider from time to time, even if you are healthy. The purpose of these visits is to: Screen for medical issues Assess your risk for future medical problems Encourage a healthy lifestyle Update vaccinations and other preventive care services Help you get to know your provider in case of an illness Information Even if you feel fine, you should still see your provider for regular checkups. These visits can help you avoid problems in the future. For example, the only way to find out if you have high blood pressure is to have it checked regularly. High blood sugar and high cholesterol levels also may not have any symptoms in the early stages. A simple blood test can check for these conditions. There are specific times when you should see your provider or receive specific health screenings. The [place] Preventive Services Task Force publishes a list of recommended screenings. Below are screening guidelines for women ages 18 to 39. BLOOD PRESSURE SCREENING Your blood pressure should be checked at least once every 3 to 5 years if: Your blood pressure is in the normal range (top number less than 120 mm Hg and bottom number less than 80 mm Hg) You don't have risk factors for high blood pressure Ask your provider if you need your blood pressure checked more often if: The top number is 120 to 129 mm Hg or the bottom number is 70 to 79 mm Hg You have diabetes, heart disease, kidney problems, are overweight, or have certain other health conditions You have a first-degree relative with high blood pressure You are Black You had high blood pressure during a If the top number is 130 mm Hg or greater or the bottom number is 80 mm Hg or greater, this is considered stage 1 hypertension. Schedule an appointment with your provider to learn how you can reduce your blood pressure. Watch for blood pressure screenings in your area. Ask your provider if you can stop in to have your blood pressure checked. BREAST CANCER SCREENING Experts do not agree about the benefits of breast self-exams in finding breast cancer or saving lives. Talk to your provider about what is best for you. A screening mammogram is not recommended for most women under age 40. Your provider may discuss and recommend mammograms, MRI scans, or ultrasounds if you have an increased risk for breast cancer, such as: A mother or sister who had breast cancer at a young age (most often starting screening earlier than the age the close relative was diagnosed) You carry a high-risk genetic marker CERVICAL CANCER SCREENING Cervical cancer screening should start at age 21 years unless your provider advises otherwise. After the first test: Women ages 21 through 29 should have a Pap test every 3 years. Exoprts do not agree on whether HPV testing is recommended for this age group. Women ages 30 through 65 should be screened with either a Pap test every 3 years or the HPV test every 5 years or both tests every 5 years (called cotesting ). Women who have been treated for precancer (cervical dysplasia) should continue to have Pap tests for 20 years after treatment or until age 65, whichever is longer. If you have had your uterus and cervix removed (total hysterectomy), and you have not been diagnosed with cervical cancer or precancer (high grade cervical neoplasia), you do not need cervical cancer screening. CHOLESTEROL SCREENING Cholesterol screening should begin at: Age 45 for women with no known risk factors for coronary heart disease Age 20 for women with known risk factors for coronary heart disease Repeat cholesterol screening should take place: Every 5 years for women with normal cholesterol levels More often if changes occur in lifestyle (including weight gain and diet) More often if you have diabetes, heart disease, kidney problems, or certain other conditions DIABETES SCREENING You should be screened for diabetes starting at age 35 and then repeated every 3 years if you have no risk factors for diabetes. Screening may need to start earlier and be repeated more often if you have other risk factors for diabetes, such as: You have a first degree relative with diabetes. You are overweight or have obesity. You have high blood pressure, prediabetes, or a history of heart disease. Screening for diabetes should be done if you are planning to become and you are overweight and have other risk factors such as high blood pressure. DENTAL EXAM Go to the dentist once or twice every year for an exam and cleaning. Your dentist will evaluate if you need more frequent visits. EYE EXAM Have an eye exam every 5 to 10 years before age 40. If you have vision problems, have an eye exam every 2 years or more often if recommended by your provider. You should have an eye exam that includes an examination of your retina (back of your eye) at least every year if you have diabetes. IMMUNIZATIONS Commonly needed vaccines include: Flu shot: get one every year. COVID-19 vaccine: ask your provider what is best for you. Tetanus-diphtheria and acellular pertussis (Tdap) vaccine: have one at or after age 19 as one of your tetanus-diphtheria vaccines if you did not receive it as an adolescent. Tetanus-diphtheria: have a booster (or Tdap) every 10 years. Varicella vaccine: receive 2 doses if you never had chickenpox or the varicella vaccine. Hepatitis B vaccine: receive 2, 3, or 4 doses, depending on your exact circumstances. Measles, mumps, and rubella (MMR) vaccine: receive 1 to 2 doses if you are not already immune to MMR. Your provider can tell you if you are immune. Ask your provider about the human papillomavirus (HPV) vaccine if: You have not received the HPV vaccine in the past You have not completed the full vaccine series (you should catch up on this shot) Ask your provider if you should receive other immunizations if you have certain health problems that increase your risk for some diseases such as pneumonia. INFECTIOUS DISEASE SCREENING Women who are sexually active should be screened for chlamydia and gonorrhea up until age 25. Women 25 years and older should be screened for chlamydia and gonorrhea if at high risk. Screening for hepatitis C: All adults ages 18 to 79 should get a one-time test for hepatitis C. people should be screened at every . Screening for human immunodeficiency virus (HIV): All people ages 15 to 65 should get a one-time test for HIV. Depending on your lifestyle and medical history, you may also need to be screened for infections such as syphilis and HIV, as well as other infections. PHYSICAL EXAM All adults should visit their provider from time to time, even if they are healthy. The purpose of these visits is to: Screen for disease Assess your risk of future medical problems Encourage a healthy lifestyle Update your vaccinations and other preventive care services Maintain a relationship with a provider in case of an illness Your height, weight, and BMI should be checked at every exam. During your exam, your provider may ask you about: Depression and anxiety Diet and exercise Alcohol and tobacco use Safety issues, such as using seat belts, smoke detectors, and intimate partner violence Your medicines and risk for interactions SKIN SELF-EXAM Your provider may check your skin for signs of skin cancer, especially if you're at high risk, such as if you: Have had skin cancer before Have close relatives with skin cancer Have a weakened immune system OTHER SCREENING Talk with your provider about colon cancer screening if you have a strong family history of colon cancer or polyps, or if you have had inflammatory bowel disease or polyps yourself. Routine bone density screening of women under 40 is not recommended. Quality Reporting (2019) Adult ([facility] 138/09/30/68) Smoking risk assessment performed?: Yes Patient Tobacco Use Status: Former Tobacco user Depression screening performed: Yes Screen Results: Yes Negative screen Recommended changes not done: EKG Patient refused: Yes Systolic BP not done?: No Diastolic BP not done?: No BMI screening not done: No BMI High - Follow Up: Yes High-plan Sexual Activity Screening ([facility] 153) Sexually active?: No Immunizations ([facility] 147, 117) Annual Influenza Vaccine: Yes Measles Antibody Test: No Mumps Antibody Test: No Rubella Antibody Test: No Varicella Antibody Test: No Anti Hepatitis A IgG Antigen test: No Anti Hepatitis B Virus Surface Ab test: No Fall Risk Screening ([facility] 139) Last assessed Fall Risk: 05/30/24 Fall risk assessment: No Falls in past year Dementia Assessment ([facility] 149) Cognitive assessment recorded: Yes (6 cit wnl) Assessment of cognition with standardized tool: Yes Depression/Bipolar (159/160/161/177) PHQ-9: Total score: 2 Ophthalmol:Cataracts Visual Acuity (133) Visual acuity exam performed: Yes (see HPI) Coding Level of Care Code Medicare Subsequent (G0439) Est Pt Level 3 (49186) Diagnoses Encounter for subsequent annual wellness visit (AWV) in Medicare patient Z00.00 Prediabetes R73.03 Dermatitis L30.9 Overactive bladder N32.81 Acquired hypothyroidism E03.9 Hypothyroidism type: acquired ACP (advance care planning) Z71.89 Gastroesophageal reflux disease without esophagitis K21.9 Esophagitis presence: without esophagitis Stage 3a chronic kidney disease N18.31 Chronic kidney disease stage 3 subtype: stage 3a (GFR 45-59) Hyperlipidemia LDL goal <100 E78.5 CPT Codes Advance Care Planning - Time spent: 1-15 minutes, not on file ([id number]) Coding - Hearing Test Screenin - Screening Test, pure tone, air only ([id number]) Advance Care Planning Advance Care Planning discussion: Exists, not on file Date of discussion: 05/30/24 Who was present: self Forms completed: Health Care Proxy and MOLST Time spent: 1-15 minutes, not on file Actual minutes spent: 5
[2024-05-30 12:01] VITALS: BP 134/78; PULSE 66; RESP 14; O2SAT 98; BMI 37.6
== END 2024-05-30 13:19 | disposition home or self-care (01) ==
PROVIDERS: PCP Family Medicine; Visit Provider Nurse Practitioner Family
DX: Z00.00 Encounter for general adult medical examination without abnormal findings (principal); R73.03 Prediabetes; L30.9 Dermatitis, unspecified; N18.31 Chronic kidney disease, stage 3a; N32.81 Overactive bladder; E03.9 Hypothyroidism, unspecified; Z71.89 Other specified counseling; K21.9 Gastro-esophageal reflux disease without esophagitis; E78.5 Hyperlipidemia, unspecified

== ENCOUNTER → 2024-05-30 11:50 | Outpatient (BNVA) | payer MEDICARE, OTHER, SELFPAY | PROVIDERS: PCP Family Medicine; Visit Provider Nurse Practitioner Family | DX: R73.03 Prediabetes (principal); L30.9 Dermatitis, unspecified; N32.81 Overactive bladder; E03.9 Hypothyroidism, unspecified; K21.9 Gastro-esophageal reflux disease without esophagitis; N18.31 Chronic kidney disease, stage 3a; E78.5 Hyperlipidemia, unspecified; Z79.84 Long term (current) use of oral hypoglycemic drugs; Z79.899 Other long term (current) drug therapy; Z71.89 Other specified counseling | CPT/HCPCS: 83036; 99212 ==

== ENCOUNTER 2024-10-05 09:35 | Outpatient (REF) | payer MEDICARE, OTHER, SELFPAY ==
[2024-10-05 12:12] LABS: Estimated Average Glucose 117 mg/dL; Hemoglobin A1C 125.4532 umol/L; Hemoglobin A1c % 5.7 % (<6.0); Total Hemoglobin (HGBA1C) 3255.9434 umol/L
[2024-10-05 12:38] LABS: Alanine Aminotransferase 19 U/L (0-31); Albumin Level 4.1 g/dL (3.5-5.0); Alkaline Phosphatase 58 U/L (39-117); Anion Gap 12 (12-20); Aspartate Amino Transferase 22 U/L (5-31); Bilirubin Total 0.5 mg/dL (0.0-1.0); Blood Urea Nitrogen 19 mg/dL (9-16); Calcium 9.8 mg/dL (8.4-10.2); Carbon Dioxide 29 mmol/L (22-29); Chloride 105 mmol/L (96-108); Cholesterol 163 mg/dL (<200); Estimated Glomerular Filt Rate > 60; Glucose Fasting 96 mg/dL (60-99); HDL Cholesterol 53 mg/dL (>40); LDL Cholesterol Calculated 81 mg/dL (<100); Sodium 142 mmol/L (135-145); Total Protein 7.4 g/dL (6.5-8.0); Triglycerides 148 mg/dL (<150)
[2024-10-05 12:57] LABS: TSH reflex Free T4 2.67 uIU/mL (0.32-4.0)
[2024-10-05 13:06] LABS: Folate 15.5 ng/mL (> or = 4.0); Vitamin B12 731 pg/mL (200-900)
== END 2024-10-05 09:36 | disposition home or self-care (01) ==
LOC: HO.WFDLDS 09:35
PROVIDERS: Visit Provider Nurse Practitioner Family
DX: E03.9 Hypothyroidism, unspecified (principal); E78.5 Hyperlipidemia, unspecified; R73.03 Prediabetes; N18.31 Chronic kidney disease, stage 3a
CPT/HCPCS: 36415; 80053; 80061; 82607; 82746; 83036; 84443

== ENCOUNTER 2024-10-12 10:18 | Outpatient (AMB) | payer MEDICARE, OTHER, SELFPAY ==
--- NOTE | 2024-10-12 10:24 | MHC.PC.OV ---
Vital Signs 10/12/24 10:30 Height 5 ft 2 in Weight 211 lb 4 oz BMI 38.6 BP 138/76 Blood Pressure Location Rt brachial Position Sitting Respiration 13 Pulse 85 Pulse Source Pulse Oximeter Temp 97.2 F Temp Source Oral Pulse Oximetry (%) 98 Oxygen Delivery Method Room Air Intake Visit Reasons: 4 months routine fu complex 30 min labs 1 week Intake Note: routine follow up and review labs [place] Required: No Allergies amoxicillin [From Augmentin] Allergy (Mild, Verified 10/12/24 11:01) skin rash clavulanic acid [From Augmentin] Allergy (Mild, Verified 10/12/24 11:01) skin rash Medication List - Last Reconciled 10/12/24 by Gill Saldivar, CLIENT RELATIONSHIP EXECUTIVE- amlodipine 10 mg PO DAILY ammonium lactate 12% 1 appl topical DAILY aripiprazole 2 mg PO DAILY atorvastatin 40 mg PO DAILY bromfenac 0.09% 1 drp ophthalmic (eye) BID calcium carbonate (Calcium 600) 1,200 mg PO DAILY cholecalciferol (vitamin D3) 50 mcg PO DAILY clobetasol 0.05% 1 appl topical BEDTIME PRN 4 weeks clotrimazole 1% 1 appl topical BID 4 weeks denosumab (Prolia) 60 mg subcut [id number] lamotrigine 200 mg PO DAILY levothyroxine 100 mcg PO DAILY lorazepam 0.5 mg PO BID PRN losartan-hydrochlorothiazide 100-12.5 mg 1 tab PO DAILY metformin ER 500 mg PO BID 90 days multivitamin 1 tab PO DAILY omeprazole 20 mg PO DAILY triamcinolone acetonide 0.1% 1 appl topical BID Tobacco use date assessed: 10/12/24 Fall risk assessment: 1 Fall in past year (mechanical fall, tripped over dog gate ) Last assessed Fall Risk: 10/12/24 Dental Screening Dental Screen Date: 10/12/24 Did you have a dental visit in the last 12 months?: Yes Did you have a dental problem in the last 6 months where you did not have access to dental care?: No Was dental information given to patient?: Patient has dentist HPI HPI Comments History of Present Illness Details 73-year-old female with hyperlipidemia, prediabetes, GERD, sleep apnea with CPAP, CKD 3, obesity, osteoporosis, MDD, bipolar 1 disorder, hypothyroidism, generalized anxiety disorder, hypertension, vitamin-D deficiency, iron deficiency anemia, proteinuria, CHF, glaucoma, stress incont Status post breast surgery 1996, cataract surgery on the left in 2011, cataract surgery in the right 2012 D&C 2005, eye surgery in 1992, inguinal hernia repair 1960 medial nerve decompression 2004, shoulder arthroscopy with rotator cuff repair on the right 2010, surgery for relief of elevated intra-ocular pressure bilat 2005, tonsillectomy, total abdominal hysterectomy with removal of both ovaries and 2005, excision of ganglion cyst of the wrist 1986, glaucoma surgery 2018 Social: job for 15 hours/week at [employer] working in activities family hx: as below Specialists: Psychiatry [facility] Ophthalmology Dr Briggs Rheum first appt 07/11/24 Sleep Med Ortho PRN only Health Maintenance: Mammogram 11/19/2023 WNL DEXA 11/2023 DIAGNOSIS: Osteoporosis based on the lowest T-score value of -3.6 in the femoral neck applying World Health Organization criteria. Vaccines - UTD, will get latest PCV & RSV at pharm Colonoscopy 2022 normal 10 year recall * i dont have this record, per pt report Echo 11/2023 Echo 11/2023 trace mitral , pulmonic and tricuspid valve regurg Normal left ventricular cavity size. There is normal left ventricular wall thickness. The left ventricular systolic function is hyperdynamic. The visually estimated ejection fraction is >70%. Spectral Doppler is indicative of an impaired relaxation filling pattern. AAA screen: NA EKG: declined - The patient is a 73-year-old female presenting with chronic disease management. She has several chronic conditions including hyperlipidemia, GERD, CKD, iron deficiency anemia, hypothyroidism, and vitamin D deficiency. She manages her hyperlipidemia with atorvastatin 40 mg daily, and her lipid profile is at goal. She is on a proton pump inhibitor for GERD, which she has attempted to taper. Her CKD lab results have remained stable, and her iron deficiency anemia is currently managed with normal CBC and iron profile values. Her hypothyroidism is controlled on levothyroxine, maintaining her euthyroid status. Additionally, she is supplementing calcium and vitamin D to manage her vitamin D deficiency. Her hypertension is effectively controlled with a combination of losartan and hydrochlorothiazide. She controls her prediabetes with metformin, maintaining an A1c at desired levels. The patient uses a CPAP machine for her sleep apnea. Lately, she has developed painful foot blisters associated with severe hammer toes and bunions, which is impacting her mobility despite wearing appropriately designed footwear. She also reports ongoing, severe itching on her wrists, suspected to be eczema, which has yet to improve with prior interventions. She has noted considerable weight gain, attributing this to limited intake throughout her workday, with increased consumption in the evenings. Bipolar controlled on current meds, active w/ outside prescriber. - Reports limited daytime meal consumption at work due to occupational demands, leading to increased caloric Review of Systems - General: Reports weight gain. - Skin: Reports itching and worsening rash suspected to be eczema. - Musculoskeletal: Reports painful blisters and foot deformities (hammer toes, bunions). - Endocrine: No new complaints. - Respiratory: No new complaints. Results - Labs: Lipid profile is at goal, CBC and iron profile within normal limits, A1c at goal, euthyroid state confirmed by thyroid levels. - Tests and Diagnostics: Sleep apnea managed successfully with CPAP usage. Discussion Notes During the visit, the patient and I discussed her chronic disease management. We reviewed her current medication regimen, confirming medications are effectively controlling her conditions. I explained the potential infectious risk due to her working environment and recommended obtaining pneumococcal and RSV vaccinations for added protection. I addressed her concern about feet and referred her to a recreation therapist for specialized care. Recommend avoiding pressure - try lambs wool. We also discussed the persistent rash on her wrists, considering a dermatology referral for further evaluation. Additionally, I outlined the importance of maintaining consistent daytime caloric intake to support metabolic health and advised on integrating simple snack options during her workday. We agreed on pursuing antifungal treatment in the interim for her skin condition, emphasizing monitoring her sleep apnea and considering potential CPAP equipment updates if necessary. Follow-up was recommended based on her overall condition and any emerging health concerns. Assessment and Plan 1. Hyperlipidemia: Continue atorvastatin 40 mg as the lipid profile is at the target goal, indicating effective management. 2. GERD: Maintain current PPI regimen; a gradual reduction may be considered if symptoms allow. 3. Chronic Kidney Disease (CKD): Continue current management with routine monitoring as lab results remain stable. 4. Iron Deficiency Anemia: Iron levels are within normal limits; no changes in management are required. 5. Hypothyroidism: Continue levothyroxine treatment as the patient is euthyroid. 6. Vitamin D Deficiency: Continue calcium and vitamin D supplementation as previously prescribed. 7. Essential Hypertension: Blood pressure control is achieved on the current medication regimen. 8. Prediabetes: Maintain metformin as the patient's A1c is at the goal. 9. Sleep Apnea: Ensure adherence to CPAP use and consider equipment update documentation for insurance purposes if indicated. 10. Hammertoes: Referred to podiatry for specialized evaluation of painful blisters and deformities. 11. Eczema/rash: Initiate antifungal therapy for wrist rash, with dermatology referral for further evaluation. 12. Obesity: Emphasized improved dietary intake during daytime; advised quick snack options during work hours. Patient Instructions - Continue all current medications as prescribed. - Schedule an appointment with the recreation therapist for foot-related concerns. - Schedule a dermatology consultation at the recommended location. - Obtain pneumococcal and RSV vaccinations from your pharmacy. - Contact the pharmacy for refills as needed. - Ensure consistent daytime nutrition intake, initiating snacks during breaks. - Monitor response to antifungal treatment on wrists. RTO 6 months for chronic condition, sooner PRN Consent The patient provided verbal consent after discussing the benefits and potential alternatives of the topical antifungal treatment. The patient expressed understanding and willingness to attend referrals with recreation therapist and tool setter apprentice for specialized assessment and treatment. Consent was obtained directly from the patient during our conversation. Patient was informed and verbally consented to the use of an ambient scribe for clinic note documentation during this visit. Exam: awake alert NAD scleras nonicteric bilat MMM RRR, 2/6 systolic murmur LSB LS dim at bases otherwise clear throughout Mood and affect appropriate Trace edema BLE R>L hairless, chronic vascular skin changes, decreased PP See below: Total time spent caring for the patient today was 47 minutes. This includes time spent before the visit reviewing the chart, time spent during the visit, and time spent after the visit on documentation, reviewing laboratory results, diagnostic imaging, medications, performing a medically necessary evaluation, counseling on diagnoses, care coordination, ordering appropriate tests, ordering appropriate medications, review of tests performed by other providers, reporting test results with the patient, communication with other healthcare providers. [facility] Medical History (Updated 10/12/24 @ 16:32 by CHUCK Wright) No pertinent past medical history Surgical History (Updated 03/23/24 @ 09:37 by LYN Mccain) H/O: hysterectomy History of rotator cuff surgery No pertinent past surgical history Family History Mother Hypertension Stroke Father Arthritis, rheumatoid Glaucoma Social History Household Members: None Housing: Apartment 75 years or older and lives alone: No Alcohol intake: current Alcohol intake frequency: holidays/special occasions only Patient Tobacco Use Status: Former Tobacco user Tobacco use type: Cigarette Years Smoked: Only smoked during college e-Cigarette/Vaping Use: Never Used service: No Current occupational status: retired Current occupational exposures/hazards: No Cognitive needs: No Hearing needs: No Vision needs: No Questionnaire PHQ-9 Over the last 2 weeks, how often have you been bothered by any of the following problems? 1. Little interest or pleasure in doing things: not at all 2. Feeling down, depressed, or hopeless: not at all 3. Trouble falling or staying asleep, or sleeping too much: not at all 4. Feeling tired or having little energy: several days 5. Poor appetite or overeating: several days 6. Feeling bad about yourself - or that you are a failure or have let yourself or your family down: not at all 7. Trouble concentrating on things, such as reading the newspaper or watching television: not at all 8. Moving or speaking so slowly that other people could have noticed. Or the opposite - being so fidgety or restless that you have been moving around a lot more than usual: not at all 9. Thoughts that you would be better off or of hurting yourself in some way: not at all Total score: 2 Depression Screening Interpretation: Negative Depression Screening Done: Yes 59962 - PHQ-9 Billing: Yes Source: Developed by Drs. Jerome Carranza, Padmini Bower, Jay Jay Gonzalez and colleagues, with an educational orlando from [employer]. Thrive Questionnaire Date Thrive assessed: 10/12/24 I am a: Patient What is your living situation today?: I have a steady place to live Within the past 12 months, did the food you bought not last and you didn't have the money to get more?: Never true Within the past 12 months, did you worry whether your food would run out before you got money to buy more?: Never true Do you have trouble paying for medicines?: No Do you have trouble getting transportation to medical appointments?: No Do you have trouble paying your heating and electricity bill?: No Do you have trouble taking care of your child, family member or friend?: No Do you have trouble with day-to-day activities such as bathing, preparing meals, shopping, managing finances, etc.?: No Are you currently unemployed and looking for a job?: No Are you interested in more education?: No Please select the resources that you would like help with: None Currently or been in a relationship where the following occur: No concerns reported THRIVE Score: 0 AUDIT C Alcohol Use Questionnaire (AUDIT-C) 1. How often do you have a drink containing alcohol?: 2-3 times a week 2. How many drinks containing alcohol do you have on a typical day when you are drinking?: 1 or 2 3. How often do you have six or more drinks on one occasion?: Never Total Score: 3 Score Reviewed/Action Taken: Yes AYANNA-7 AMB Questionnaire AYANNA-7 Date AYANNA - 7 assessed: 10/12/24 Feeling nervous, anxious, or on edge: 1 = Several days Not being able to stop or control worryin = Several days Worrying too much about different things: 1 = Several days Trouble relaxin = Several days Being so restless that it is hard to sit still: 0 = Not at all Becoming easily annoyed or irritable: 0 = Not at all Feeling afraid as if something awful might happen: 1 = Several days Total AYANNA-7 score (0-4 normal; 5-9 mild; 10-14 moderate; 15-21 severe): 5 Source: Developed by Drs. Jerome Carranza, Padmini Bower, Jay Jay Gonzalez and colleagues, with an educational orlando from [employer]. AYANNA-7 Assessment Billing AYANNA-7 Assessment Tool: AYANNA-7 Assessment 75577 Physical exam (Primary Care) Vital Signs: Last Vital Signs Temp 97.2 F 10/12/24 10:30 Pulse 85 10/12/24 10:30 Resp 13 10/12/24 10:30 BP 138/76 10/12/24 10:30 Pulse Ox 98 10/12/24 10:30 Oxygen Delivery Method Room Air 10/12/24 10:30 BMI result Body Mass Index 38.6 BMI Assessment/Plan discussion: High BMI High, discussed plan: lifestyle Tobacco/Smoking Status: Tobacco use Status Tobacco use date assessed 10/12/24 10/12/24 10:25 Patient Tobacco Use Status Former Tobacco user 10/12/24 10:25 Tobacco use type Cigarette 10/12/24 10:25 e-Cigarette/Vaping Use Never Used 10/12/24 10:25 PHQ-9: PHQ-9 Score PHQ-9: Total score 2 10/12/24 16:23 Depression Screening Interpretation: Negative Thrive Assessment: Date of Thrive Assessment Date Thrive assessed 10/12/24 10/12/24 10:25 Currently or been in a relationship where the following occur: No concerns reported Coding Level of Care Code Est Pt Level 5 (54980) Complex EM visit Add On G2211 Diagnoses PVD (peripheral vascular disease) I73.9 Onycholysis L60.1 Callus L84 Dermatitis L30.9 Stage 3a chronic kidney disease N18.31 Chronic kidney disease stage 3 subtype: stage 3a (GFR 45-59) Primary hypertension I10 Hypertension type: primary hypertension Hyperlipidemia LDL goal <100 E78.5 Acquired hypothyroidism E03.9 Hypothyroidism type: acquired Bipolar 1 disorder F31.9 Chronic diastolic congestive heart failure I50.32 Heart failure type: diastolic Heart failure chronicity: chronic Gastroesophageal reflux disease without esophagitis K21.9 Esophagitis presence: without esophagitis Glaucoma, unspecified glaucoma type, unspecified laterality H40.9 Glaucoma type: unspecified Laterality: unspecified laterality Iron deficiency anemia, unspecified iron deficiency anemia type D50.9 Iron deficiency anemia type: unspecified iron deficiency BRIANNA on CPAP G47.33 Prediabetes R73.03 Vitamin D deficiency E55.9 BMI 38.0-38.9,adult Z68.38 Class 2 severe obesity due to excess calories with serious comorbidity and body mass index (BMI) of 38.0 to 38.9 in adult E66.812; E66.01; Z68.38 Obesity type: due to excess calories Additional Codes AYANNA-7 Assessment Billing - AYANNA-7 Assessment Tool: AYANNA-7 Assessment 83369 ([id number]) PHQ-9 - 36445 - PHQ-9 Billing: Yes ([id number]) Assessment & Plan Assessment & Plan (1) PVD (peripheral vascular disease): Comment: based on physical exam Monitor skin integrity, cont statin and BP control Code(s): I73.9 - Peripheral vascular disease, unspecified Category: Medical (2) Onycholysis: Code(s): L60.1 - Onycholysis Category: Medical (3) Callus: Code(s): L84 - Corns and callosities Category: Medical (4) Dermatitis: Comment: of hands & scalp Code(s): L30.9 - Dermatitis, unspecified Category: Medical (5) CKD (chronic kidney disease) stage 3, GFR 30-59 ml/min: Comment: based on previous records; ordered updated labs. Code(s): N18.30 - Chronic kidney disease, stage 3 unspecified Category: Medical Qualifiers: Chronic kidney disease stage 3 subtype: stage 3a (GFR 45-59) Qualified Code(s): N18.31 - Chronic kidney disease, stage 3a (6) HTN (hypertension): Comment: BP goal < 130/80. losartan 100 mg/hydrochlorothiazide 12.5 mg 1 tablet once per day sent to the pharmacy should take this along with the amlodipine 10 mg daily. Code(s): I10 - Essential (primary) hypertension Category: Medical Qualifiers: Hypertension type: primary hypertension Qualified Code(s): I10 - Essential (primary) hypertension (7) Hyperlipidemia LDL goal <100: Comment: on atorvastatin 40mg QD LDL at goal, continue atorvastatin 40 mg daily Code(s): E78.5 - Hyperlipidemia, unspecified Category: Medical (8) Hypothyroid: Comment: on levothyroxine 100mcg QD Code(s): E03.9 - Hypothyroidism, unspecified Category: Medical Qualifiers: Hypothyroidism type: acquired Qualified Code(s): E03.9 - Hypothyroidism, unspecified (9) Bipolar 1 disorder: Comment: managed by outside prescriber currently on lorazepam, abilify and cymbalta Code(s): F31.9 - Bipolar disorder, unspecified Category: Medical (10) CHF (congestive heart failure): Comment: Echo 11/2023 trace mitral , pulmonic and tricuspid valve regurg Normal left ventricular cavity size. There is normal left ventricular wall thickness. The left ventricular systolic function is hyperdynamic. The visually estimated ejection fraction is >70%. Spectral Doppler is indicative of an impaired relaxation filling pattern. Plan: Euvolemic, medical mgmt with CCB, ARB + HCTZ Code(s): I50.9 - Heart failure, unspecified Category: Medical Qualifiers: Heart failure type: diastolic Heart failure chronicity: chronic Qualified Code(s): I50.32 - Chronic diastolic (congestive) heart failure (11) GERD (gastroesophageal reflux disease): Code(s): K21.9 - Gastro-esophageal reflux disease without esophagitis Category: Medical Qualifiers: Esophagitis presence: without esophagitis Qualified Code(s): K21.9 - Gastro-esophageal reflux disease without esophagitis (12) Glaucoma: Comment: will need to obtain records active w Dr Briggs on eye drops Code(s): H40.9 - Unspecified glaucoma Category: Medical Qualifiers: Glaucoma type: unspecified Laterality: unspecified laterality Qualified Code(s): H40.9 - Unspecified glaucoma (13) Iron deficiency anemia: Comment: in the past, most recent labs WNL, colon UTD She is on PPI 40mg QD, has been for a long time. Has no idea why she is on it. Will work on deprescribing. Take omeprazole 20mg daily x 2 weeks, then take every other day x 1 week and then cont to decrease weekly until off. IF you have any symptoms of heart burn or reflux, resume the previous week dosing for 2 weeks and then continue the taper. If not able to fully come off, ok to HOLD at that dose & we can go from there. Code(s): D50.9 - Iron deficiency anemia, unspecified Category: Medical Qualifiers: Iron deficiency anemia type: unspecified iron deficiency Qualified Code(s): D50.9 - Iron deficiency anemia, unspecified (14) BRIANNA on CPAP: Code(s): G47.33 - Obstructive sleep apnea (adult) (pediatric) Category: Medical (15) Prediabetes: Comment: on Metformin ER 500mg po BID Code(s): R73.03 - Prediabetes Category: Medical (16) Vitamin D deficiency: Comment: on Vitamin d3 50mcg QD + Calcium Carb 1200 mg QD Vitamin-D within normal limits, continue Code(s): E55.9 - Vitamin D deficiency, unspecified Category: Medical (17) BMI 38.0-38.9,adult: Code(s): Z68.38 - Body mass index [BMI] 38.0-38.9, adult Category: Medical (18) Class 2 severe obesity with serious comorbidity and body mass index (BMI) of 38.0 to 38.9 in adult: Comment: with HLD and HTN Code(s): E66.812 - Obesity, class 2; E66.01 - Morbid (severe) obesity due to excess calories; Z68.38 - Body mass index [BMI] 38.0-38.9, adult Category: Medical Qualifiers: Obesity type: due to excess calories Qualified Code(s): E66.812 - Obesity, class 2; E66.01 - Morbid (severe) obesity due to excess calories; Z68.38 - Body mass index [BMI] 38.0-38.9, adult Plan . Orders: Orders Comprehensive Met. Panel 6 Months E03.9 - Hypothyroidism, unspecified, E78.5 - Hyperlipidemia, unspecified, I10 - Essential (primary) hypertension, N18.31 - Chronic kidney disease, stage 3a Hemoglobin A1c 6 Months E03.9 - Hypothyroidism, unspecified, E78.5 - Hyperlipidemia, unspecified, I10 - Essential (primary) hypertension, N18.31 - Chronic kidney disease, stage 3a TSH reflex Free T4 6 Months E03.9 - Hypothyroidism, unspecified, E78.5 - Hyperlipidemia, unspecified, I10 - Essential (primary) hypertension, N18.31 - Chronic kidney disease, stage 3a Lipid Panel 6 Months E03.9 - Hypothyroidism, unspecified, E78.5 - Hyperlipidemia, unspecified, I10 - Essential (primary) hypertension, N18.31 - Chronic kidney disease, stage 3a Referrals Podiatry Referral I73.9 - Peripheral vascular disease, unspecified, L60.1 - Onycholysis, L84 - Corns and callosities Dermatology Referral L30.9 - Dermatitis, unspecified Medications: New clotrimazole 1% 1 appl topical BID 4 weeks 45 grams 2RF Patient Instructions: Bina Call - Happy birthday to you!!!
[2024-10-12 10:30] VITALS: BP 138/76; PULSE 85; RESP 13; TEMP 36.2; O2SAT 98; BMI 38.6
--- OUTSIDE RECORDS SUMMARY | 2024-10-12 12:10 | XMS_ITS | Patient Health Record ---
Author Organization [facility] Billing Info Address [address] [place] [address] Care Team Providers Care Hydraulic Punch Press Operator Name Role Phone EDWIGE LONDON Primary Care Provider Allergies Allergen (clinical drug ingredient) Drug/Non Drug Allergy documented on EMR Reaction Allergy Type Onset Date Status Augmentin rash Drug Allergy Active Reason For Referral No Information Medications Medication SIG (Take, Route, Frequency, Duration) Notes Start Date End Date Status Atorvastatin Calcium 40 MG Take 1 tablet by mouth once daily for 90 days Active MetFORMIN HCl ER 500 MG Take 1 tablet by mouth twice daily with food for 90 days Active Lamotrigine 200 MG 1 tablet Orally Once a day for 90 days Active Calcium 500 + D [id number] 1 tab Orally Twice a day Active Duloxetine HCl 30 MG 1 capsule Orally Da jacquelyn for 90 days Active [place] 3 1000 MG 1 capsule Orally twi ce a day Active Omeprazole 40 MG Take 1 capsule by mo uth once daily for 90 days Active Multivitamin - 1 Tab Orally OD Active Losartan Potassium 100 MG Take 1 tablet by mouth once daily for 90 days Active Abilify 2 MG 1 tablet Orally Once a day for 90 days Active Levothyroxine Sodium 100 MCG TAKE 1 TABL ET BY MOUTH ONCE DAILY IN THE MORNING ON AN EMPTY STOMACH for 90 days Active Lorazepam 0.5 MG 1 tablet as needed Orally every 6 hrs for 7 days Active Aripiprazole 2 MG Take 1 tablet by ashley th once daily for 90 Active Amlodipine Besylate 10 MG Take 1 tablet by mouth once daily for 90 days Active Immunizations Vaccine Route Administration Date Status Comme nts PNEUMOCOCCAL - 23 POLY (PNEUMOVAX 23) IM Intramuscular 05/25/2016 Administered PNEUMOCOCCAL 13 CONJ ([id number]) IM Intramuscular 05/02/2018 Administered FLU (Past vaccine of unknown type) IM Intramuscular 05/21/2010 Administered FLU (Past vaccine of unknown type) Unknown 05/18/2011 Administered FLU (Past vaccine of unknown type) Unknown 05/23/2012 Administered FLU (Past vaccine of unknown type) IM Intramuscular 04/29/2015 Administered FLU (Past vaccine of unknown type) Unknown 05/18/2016 Administered TETANUS (Past vaccine of unknown type) Unknown 08/09/1985 Administered TETANUS (Past vaccine of unknown type) Unknown 08/09/2003 Administered ZOSTER (Past vaccine of unknown type)121 Unknown 12/04/2013 Administered TDAP (Past vaccine of unknown type) IM Intramuscular 03/14/2012 Administered zFLU 4V (FLUZONE QUAD), 3 YRS+, NO PRES - ALL PAYORS Unknown 07/05/2017 Administered zFLU 4V (FLUZONE QUAD), 3 YRS+, NO PRES - ALL PAYORS IM Intramuscular 05/02/2018 Administered ZOSTER (SHINGRIX) Unknown 03/27/2019 Administered given at [facility] on 03/27/19 Social History Tobacco Use: Social History Observation Description Date Details (start date - stop date) Never Smoker NA - NA Tobacco Status: Question Answer Notes Patient is a never smoker Problems Problem Type SNOMED Code ICD Code Onset Dates Problem Status W/U Status Risk Notes Problem 843493380 Prediabetes (R73.03) Active confirmed Problem 563949179 Morbid obesity (E66.01) Active confirmed Problem 08269485 Vitamin D deficiency (E55.9) Active confirmed Problem 073838781 Dermatitis (L30.9) Active confirmed Problem 877356279 Bipolar 1 disorder (F31.9) Active confirmed Dr. Bower Problem 312724422 Hypothyroidism (acquired) (E03.9) Active confirmed Problem 143148278 Obesity (BMI 30-39.9) (E66.9) Active confirmed Problem 976525397 Hyperlipidemia, mixed (E78.2) Active confirmed Problem 33944557 Iron deficiency anemia, unspecified iron deficiency anemia type (D50.9) Active confirmed Problem 94458061 Sleep apnea in adult (G47.30) Active confirmed Problem 683232742 Osteopenia of lower leg, unspecified laterality (M85.869) Active confirmed Plan Of Treatment Pending Test Test Name Order Date MAMMO- BONE DENSITOMETRY (19760)([facility]) 09/08/2021 MAMMO- BONE DENSITOMETRY (31981)([facility]) 07/11/2021 COLOGUARD (57148) (EXACT-1000) 9 SLEEP STUDY AT [facility]ST[facility] ([address]40) 03/27/2019 Insurance Providers Payer Name Payer Address Payer Phone Subscriber Number Group Number Insured Name Patient Relationship to Insured Coverage Start Date Coverage End Date [place] [address] [address] S NETWORK [place], [place] [id number] Belen Ram Self - patient is the insured [employer] CASUALTY MCR SUPP [address] [address] ATTN CLAIMS DEPT [place], [place] [id number] [place] Self - patient is the insured Medical (General) History Medical History History ICD Code Chronic serous otitis media of right ear Chronik Kidney dse Stage 3 Ear ache, Otogenic fatigue GERD Acute pharyngitis Bursitis SOB Inguinal pain Hip joint pain Obesity Osteopenia UTI Plantar fascitis left Rotator cuff tear Salivary gland abcess Thoracic back pain ALEM Acute bronchitis Surgical History Surgery Date(Month/Year) Breast surgery 1996 Cataract surgery left 2011 Catarct surgery right 2012 Colonoscopy Dental surgery 1973 D and C 2006 Eye surgery 1993 Inguinal Hernia repair 1960 Neuroplasty Decompression Median Nerve a t Carpal Tunnel 2004 Shoulder Arthroscopy with rotator cuff r epair right 2010 Surgery for relief of elevated intraocul ar pressure bilateral 2006 Tonsillectomy Total Abdominal Hysterectomy with remova l of both Ovaries 2005 Wrist Excision of Ganglion 1987 Glaucoma surgery 02/2019
--- OUTSIDE RECORDS SUMMARY | 2024-10-12 12:11 | XMS_ITS ---
Author Organization [facility] Billing Info Address [address] [place] [address] Care Team Providers Care Washery Engineer Name Role Phone EDWIGE LONDON Primary Care Provider REASON FOR VISIT multiple refills Medications Medication SIG (Take, Route, Frequency, Duration) Notes Start Date End Date Status Amlodipine Besylate 10 MG Take 1 tablet by mouth once daily for 90 days Active Atorvastatin Calcium 40 MG Take 1 tablet by mouth once daily for 90 days Active Duloxetine HCl 30 MG 1 capsule Orally BI D for 90 days Active Lamotrigine 100 MG 1 tablet Orally Once a day for 90 days Active Levothyroxine Sodium 100 MCG TAKE 1 TABL ET BY MOUTH ONCE DAILY IN THE MORNING ON AN EMPTY STOMACH for 90 days Active Omeprazole 40 MG Take 1 capsule by [facility] once daily for 90 days Active Losartan Potassium 100 MG Take 1 tablet by mouth once daily for 90 days Active Abilify 2 MG 1 tablet Orally Once a day for 90 days Active MetFORMIN HCl ER 500 MG Take 1 tablet by mouth twice daily with food for 90 days Active Lorazepam 0.5 MG 1 tablet as needed Orally every 6 hrs for 7 days Active Encounters Encounter Location Date Provider Diagnosis [id number] [place], [place] [id number] 05/03/2023 EDWIGE LONDON Plan Of Treatment Medication Medication Name Sig Start Date Stop Date Notes Amlodipine Besylate 10 MG Take 1 tablet by mouth once daily for 90 days Atorvastatin Calcium 40 MG Take 1 tablet by mouth once daily for 90 days Duloxetine HCl 30 MG 1 capsule Orally BI D for 90 days Lamotrigine 100 MG 1 tablet Orally Once a day for 90 days Levothyroxine Sodium 100 MCG TAKE 1 TABL ET BY MOUTH ONCE DAILY IN THE MORNING ON AN EMPTY STOMACH for 90 days Omeprazole 40 MG Take 1 capsule by [facility] once daily for 90 days Losartan Potassium 100 MG Take 1 tablet by mouth once daily for 90 days Abilify 2 MG 1 tablet Orally Once a day for 90 days MetFORMIN HCl ER 500 MG Take 1 tablet by mouth twice daily with food for 90 days Lorazepam 0.5 MG 1 tablet as needed O rally every 6 hrs for 7 days Progress Notes * Belen PERDOMO LDOB:1950 (72 yo F)Acc No.[id number]:05/03/2023 Patient:?Belen Perdomo :1950???Age:72 Y???Sex:Female Address:[address] [place] [address] * Refills? Refill Abilify Tablet, 2 MG, Orally, 90 Tablet, 1 tablet, Once a day, 90 days, Refills=1 Refill Amlodipine Besylate Tablet, 10 MG, 90, Take 1 tablet by mouth once daily, 90 days, Refills=1 Refill Atorvastatin Calcium Tablet, 40 MG, 90, Take 1 tablet by mouth once daily, 90 days, Refills=1 Refill Duloxetine HCl Capsule Delayed Release Particles, 30 MG, Orally, 180 Capsule, 1 capsule, BID, 90 days, Refills=1 Refill Lamotrigine Tablet, 100 MG, Orally, 90 Tablet, 1 tablet, Once a day, 90 days, Refills=1 Refill Levothyroxine Sodium Tablet, 100 MCG, 90 Tablet, TAKE 1 TABLET BY MOUTH ONCE DAILY IN THE MORNING ON AN EMPTY STOMACH, 90 days, Refills=1 Refill Lorazepam Tablet, 0.5 MG, Orally, 28 Tablet, 1 tablet as needed, every 6 hrs, 7 days Refill Losartan Potassium Tablet, 100 MG, 90 Tablet, Take 1 tablet by mouth once daily, 90 days, Refills=1 Refill MetFORMIN HCl ER Tablet Extended Release 24 Hour, 500 MG, 180 Tablets, Take 1 tablet by mouth twice daily with food, 90 days, Refills=1 Refill Omeprazole Capsule Delayed Release, 40 MG, 90, Take 1 capsule by mouth once daily, 90 days, Refills=1 * true * Date:? Generated for Wm lynne/Sunny/Veronica on:?10/12/2024 11:10 AM SCHOOL SPEECH THERAPIST
--- OUTSIDE RECORDS SUMMARY | 2024-10-12 12:11 | XMS_ITS ---
Author Organization [facility] Billing Info Address [address] [place] [address] Care Team Providers Care Bailing Machine Operator Name Role Phone EDWIGE LONDON Primary Care Provider [phone] REASON FOR VISIT records needed Encounters Encounter Location Date Provider Diagnosis [id number] [place] [id number] 10/05/2023 EDWIGE LONDON Plan Of Treatment No Information Progress Notes * Belen PERDOMO LDOB:1950 (72 yo F)Acc No.[id number]:10/05/2023 Patient:?Belen PERDOMO :1950???Age:72 Y???Sex:Female Address:[address] [place] [address] * true * Date:? Generated for Samueli maged/Sunny/eTransmitting on:?10/12/2024 11:10 AM GLOBAL PROJECT MANAGER
--- OUTSIDE RECORDS SUMMARY | 2024-10-12 12:11 | XMS_ITS ---
Author Organization [facility] Billing Info Address [address] [place] [address] Care Team Providers Care Weigher And Crusher Name Role Phone SURYA EDWIGE Primary Care Provider [phone] Allergies Allergen (clinical drug ingredient) Drug/Non Drug Allergy documented on EMR Reaction Allergy Type Onset Date Status Augmentin rash Drug Allergy Active REASON FOR VISIT medication list update Medications Medication SIG (Take, Route, Frequency, Duration) Notes Start Date End Date Status MetFORMIN HCl ER 500 MG Take 1 tablet by mouth twice daily with food for 90 days Active Multivitamin - 1 Tab Orally OD Active Losartan Potassium 100 MG Take 1 tablet by mouth once daily for 90 days Active Omeprazole 40 MG Take 1 capsule by mo uth once daily for 90 days Active [place] 3 1000 MG 1 capsule Orally twi ce a day Active Lamotrigine 200 MG 1 tablet Orally Once a day for 90 days Active Levothyroxine Sodium 100 MCG TAKE 1 TABL ET BY MOUTH ONCE DAILY IN THE MORNING ON AN EMPTY STOMACH for 90 days Active Lorazepam 0.5 MG 1 tablet as needed Orally every 6 hrs for 7 days Active Calcium 500 + D [id number] 1 tab Orally Twice a day Active Duloxetine HCl 30 MG 1 capsule Orally Da jacquelyn for 90 days Active Abilify 2 MG 1 tablet Orally Once a day for 90 days Active Amlodipine Besylate 10 MG Take 1 tablet by mouth once daily for 90 days Active Atorvastatin Calcium 40 MG Take 1 tablet by mouth once daily for 90 days Active Encounters Encounter Location Date Provider Diagnosis [id number] [address] [place], [place] [id number] 06/25/2023 EDWIGE LONDON Plan Of Treatment No Information Progress Notes * Belen PERDOMO LDOB:1950 (72 yo F)Acc No.[id number]:06/25/2023 Patient:Belen Perla :1950???Age:72 Y???Sex:Female Address:[address] [place] [address] Subjective: * Chief Complaints: * ???Medication list update * Medical History:? * Surgical History:? * Hospitalization/Major Diagno stic Procedure:? * Medications:?TakingAbilify 2 MG Tablet 1 tablet Orally Once a dayAmlodipine Besylate 10 MG Tablet Take 1 tablet by mouth once daily Atorvastatin Calcium 40 MG Tablet Take 1 tablet by mouth once daily Calcium 500 + D [id number] 1 tab Orally Twice a dayDuloxetine HCl 30 MG Capsule Delayed Release Particles 1 capsule Orally DailyLamotrigine 200 MG Tablet 1 tablet Orally Once a dayLevothyroxine Sodium 100 MCG Tablet TAKE 1 TABLET BY MOUTH ONCE DAILY IN THE MORNING ON AN EMPTY STOMACH Lorazepam 0.5 MG Tablet 1 tablet as needed Orally every 6 hrsLosartan Potassium 100 MG Tablet Take 1 tablet by mouth once daily MetFORMIN HCl ER 500 MG Tablet Extended Release 24 Hour Take 1 tablet by mouth twice daily with food Multivitamin - 1 Tab Orally ODOmega 3 1000 MG Capsule 1 capsule Orally twice a dayOmeprazole 40 MG Capsule Delayed Release Take 1 capsule by mouth once daily Medication List reviewed and reconciled with the patientTaking Abilify 2 MG Tablet 1 tablet Orally Once a dayTaking Amlodipine Besylate 10 MG Tablet Take 1 tablet by mouth once daily Taking Atorvastatin Calcium 40 MG Tablet Take 1 tablet by mouth once daily Taking Calcium 500 + D [id number] 1 tab Orally Twice a dayTaking Duloxetine HCl 30 MG Capsule Delayed Release Particles 1 capsule Orally DailyTaking Lamotrigine 200 MG Tablet 1 tablet Orally Once a dayTaking Levothyroxine Sodium 100 MCG Tablet TAKE 1 TABLET BY MOUTH ONCE DAILY IN THE MORNING ON AN EMPTY STOMACH Taking Lorazepam 0.5 MG Tablet 1 tablet as needed Orally every 6 hrsTaking Losartan Potassium 100 MG Tablet Take 1 tablet by mouth once daily Taking MetFORMIN HCl ER 500 MG Tablet Extended Release 24 Hour Take 1 tablet by mouth twice daily with food Taking Multivitamin - 1 Tab Orally ODTaking [place] 3 1000 MG Capsule 1 capsule Orally twice a dayTaking Omeprazole 40 MG Capsule Delayed Release Take 1 capsule by mouth once daily Medication List reviewed and reconciled with the patient * Allergies:?Augmentin: rash - Allergy Objective: Assessment: Plan: * Treatment: * Procedure Codes:? * true * Date:? Generated for Wm lynne/Sunny/Veronica on:?10/12/2024 11:10 AM DATA ANALYSIS MANAGER
== END 2024-10-12 11:25 | disposition home or self-care (01) ==
PROVIDERS: PCP Nurse Practitioner Family; Visit Provider Nurse Practitioner Family
DX: I13.0 Hypertensive heart and chronic kidney disease with heart failure and stage 1 through stage 4 chronic kidney disease, or unspecified chronic kidney disease (principal); I73.9 Peripheral vascular disease, unspecified; N18.31 Chronic kidney disease, stage 3a; I50.32 Chronic diastolic (congestive) heart failure; F31.9 Bipolar disorder, unspecified; E66.01 Morbid (severe) obesity due to excess calories; L60.1 Onycholysis; L84 Corns and callosities; L30.9 Dermatitis, unspecified; E78.5 Hyperlipidemia, unspecified; E03.9 Hypothyroidism, unspecified; Z68.38 Body mass index [BMI] 38.0-38.9, adult

== ENCOUNTER → 2024-10-12 10:18 | Outpatient (BNVA) | payer MEDICARE, OTHER, SELFPAY | PROVIDERS: PCP Nurse Practitioner Family; Visit Provider Nurse Practitioner Family | DX: I73.9 Peripheral vascular disease, unspecified (principal); L60.1 Onycholysis; L84 Corns and callosities; L30.9 Dermatitis, unspecified; I13.0 Hypertensive heart and chronic kidney disease with heart failure and stage 1 through stage 4 chronic kidney disease, or unspecified chronic kidney disease; N18.31 Chronic kidney disease, stage 3a; I50.32 Chronic diastolic (congestive) heart failure; E03.9 Hypothyroidism, unspecified; F31.9 Bipolar disorder, unspecified; E78.5 Hyperlipidemia, unspecified; K21.9 Gastro-esophageal reflux disease without esophagitis; H40.9 Unspecified glaucoma; D50.9 Iron deficiency anemia, unspecified; G47.33 Obstructive sleep apnea (adult) (pediatric); R73.03 Prediabetes; E55.9 Vitamin D deficiency, unspecified; E66.01 Morbid (severe) obesity due to excess calories; Z68.38 Body mass index [BMI] 38.0-38.9, adult; Z71.3 Dietary counseling and surveillance | CPT/HCPCS: 96127; 99212 ==

== ENCOUNTER 2025-04-10 09:51 | Outpatient (REF) | payer MEDICARE, OTHER, SELFPAY ==
--- OUTSIDE RECORDS SUMMARY | 2025-04-10 11:05 | XMS_ITS | Clinical Summary ---
Author Organization [facility] Address [address] [place] [address] Phone Care Team Providers Care Faculty Criminal Justice Name Role Phone Mansoor Marsh MD Primary Care Provider Allergies Active Allergy Reactions Criticality Noted Date Comments Betamethasone, Augmented Rash Low 12/06/2023 Medications amLODIPine (NORVASC) 10 MG tablet Take 1 tablet by mouth every morning. 4 Active ARIPiprazole (ABILIFY) 2 MG tablet Take 1 tablet by mouth every morning. 4 Active atorvastatin (LIPITOR) 40 MG tablet Take 1 tablet by mouth every morning. 4 Active bromfenac (BROMDAY) 0.09 % ophthalmic solution Place 1 drop into the left eye 2 (two) times a day. 4 Active dorzolamide-tyrone oloL (COSOPT) 22.3-6.8 mg/mL ophthalmic solution INSTILL ONE DROP TO EACH EYE TWICE A DAY 4 Active lamoTRIgine (LAMICTAL) 200 MG IMMEDIATE release tablet take 1 tablet by mouth everyday at bedtime 4 Active levothyroxine (SYNTHROID, LEVOTHROID) 100 MCG tablet Take 1 tablet by mouth every morning. 4 Active losartan (COZAAR) 100 MG tablet Take 1 tablet by mouth every morning. 4 Active losartan-hydroC HLOROthiazide (HYZAAR) 100-12.5 mg per tablet Take 1 tablet by mouth every morning. 4 Active metFORMIN (GLUCOPHAGE-XR) 500 MG 24 hr tablet TAKE 1 TABLET BY MOUTH TWICE DAILY WITH FOOD 90 DAYS 4 Active omeprazole (PRILOSEC) 20 MG capsule TAKE 1 CAPSULE (20 MG) ORALLY DAILY 4 Active triamcinolone acetonide 0.1 % cream Apply topically 2 (two) times a day. 4 Active Active Problems No known active problems Social History Tobacco Use Types Packs/Day Years Used Date Smoking Tobacco: Former Cigarettes Smokeless Tobacco: Never Tobacco Cessation:Counseling Given: Not Answered Education Answer Date Recorded Are you interested in more education? Not on maya e 12/06/2023 Are you concerned about learning? Not on file 12/06/2023 No 12/06/2023 No 12/06/2023 Digital Access Answer Date Recorded No 12/06/2023 No 12/06/2023 Reliable internet access at home? Not on file 12/06/2023 Device with a working camera? Not on file Comments Unknown Sex and Gender Information Value Date Recorded Sex Assigned at Not on file Legal Sex Female 2:13 PM EDT Gender Identity Not on file Sexual Orientation Not on file Last Filed Vital Signs Vital Sign Reading Time Taken Comments Blood Pressure 136/93 12/06/2023 1:59 PM EDT Pulse 84 12/06/2023 1:59 PM EDT Temperature 36.9 C (98.5 F) 12/06/2023 1:59 PM EDT Respiratory Rate 20 12/06/2023 1:59 PM EDT Oxygen Saturation 97% 12/06/2023 1:59 PM EDT Inhaled Oxygen Concentration - - Weight 86.6 kg (191 lb) 12/06/2023 1:59 PM EDT p er pt Height - - Body Mass Index - - Plan of Treatment Health Maintenance Due Date Last Done Comments Adult Td,Tdap Booster 1950 CREATININE LEVEL 1950 LIPID PANEL 1950 POTASSIUM LEVEL 1950 TSH LEVEL 1950 DEPRESSION SCREENING 1962 SMOKING Hx and SMOKELESS TOB ACCO SCREENING 11/28/1963 HEPATITIS C SCREENING 1968 MAMMOGRAM 1990 COLOGUARD 11/28/1995 COLONOSCOPY 11/28/1995 COLORECTAL CANCER SCREENING 11/28/1995 FIT TEST 11/28/1995 FOBT 11/28/1995 SIGMOIDOSCOPY 11/28/1995 VIRTUAL COLONOSCOPY 11/28/1995 PNEUMOCOCCAL VACCINES (50+ y ears) (1 of 1 - PCV) 2000 ZOSTER VACCINES (1 of 2) 2000 OSTEOPOROSIS SCREENING INITI AL (ONE-TIME) 11/28/2015 COVID-19 VACCINE ( - 2023-2 5 season) 2024 RSV VACCINE (1 - 1-dose 75+ series) 2025 HEPATITIS A VACCINES Aged Out No long er eligible based on patient's age to complete this topic HIB VACCINES Aged Out No longer eligi ble based on patient's age to complete this topic MENINGOCOCCAL VACCINES (ACWY) Aged Out No longer eligible based on patient's age to complete this topic MENINGOCOCCAL VACCINES (B) Aged Out N o longer eligible based on patient's age to complete this topic Medical Devices Not on file Insurance [address] [place] [address] MEDICARE PART A & B GENERIC MEDICARE SUPPLEMENT MEDICARE PART A & B GENERIC MEDICARE SUPPLEMENT MEDICARE PART A & B GENERIC MEDICARE SUPPLEMENT MEDICARE PART A & B GENERIC MEDICARE SUPPLEMENT MEDICARE PART A & B GENERIC MEDICARE SUPPLEMENT MEDICARE PART A & B GENERIC MEDICARE SUPPLEMENT Care Teams Faculty Criminal Justice Relationship Specialty Start Date End Date Mansoor Marsh MD [address] [place] [address] PCP - General Family Medicine 12/06/23 Additional Source Comments The information contained in this document represents components of the legal health record. It is not the complete legal health record.[facility]
--- OUTSIDE RECORDS SUMMARY | 2025-04-10 11:05 | XMS_ITS | Patient Health Record ---
Author Organization [facility] Billing Info Address [address] [place] [address] Care Team Providers Care Dishwashing Machine Repairer Name Role Phone EDWIGE LONDON Primary Care [...] 90 days Active Calcium 500 + D [id number] 1 tab Orally Twice a day Active Duloxetine HCl 30 MG 1 capsule Orally Da jacquelyn for 90 days Active [place] 3 1000 MG 1 capsule Orally twi [...] Vaccine Route Administration Date Status Comme nts FLU (Past vaccine of unknown type) IM Intramuscular 05/21/2010 Administered FLU (Past vaccine of unknown type) Unknown 05/18/2011 Administered FLU (Past vaccine of unknown type) Unknown 05/23/2012 Administered FLU (Past vaccine of unknown type) IM Intramuscular 04/29/2015 Administered FLU (Past vaccine of unknown type) Unknown 05/18/2016 Administered PNEUMOCOCCAL - 23 POLY (PNEUMOVAX 23) IM Intramuscular 05/25/2016 Administered PNEUMOCOCCAL 13 CONJ ([id number]) IM Intramuscular 05/02/2018 Administered TDAP (Past vaccine of unknown type) IM Intramuscular 03/14/2012 Administered TETANUS (Past vaccine of unknown type) Unknown 08/09/1985 Administered TETANUS (Past vaccine of unknown type) Unknown 08/09/2003 Administered zFLU 4V (FLUZONE QUAD), 3 YRS+, NO PRES - ALL PAYORS Unknown 07/05/2017 Administered zFLU 4V (FLUZONE QUAD), 3 YRS+, NO PRES - ALL PAYORS IM Intramuscular 05/02/2018 Administered ZOSTER (SHINGRIX) Unknown 03/27/2019 Administered given at [place] [facility] on 03/27/19 zZOSTER (Past vaccine of unknown type)121 Unknown 12/04/2013 Administered Social History Tobacco Use: Social History Observation Description Date Details (start date - stop date) Never Smoker NA - NA Tobacco Status: Question Answer Notes Patient is a never smoker Problems Problem Type SNOMED Code ICD Code Onset Dates Problem Status W/U Status Risk Notes Problem 976715957 Prediabetes (R73.03) Active confirmed Problem 642457344 Morbid obesity (E66.01) Active confirmed Problem 11619392 Vitamin D deficiency (E55.9) Active confirmed Problem 906889508 Dermatitis (L30.9) Active confirmed Problem 263336657 Bipolar 1 disorder (F31.9) Active confirmed Dr. Bower Problem 932302399 Hypothyroidism (acquired) (E03.9) Active confirmed Problem 191969236 Obesity (BMI 30-39.9) (E66.9) Active confirmed Problem 604097959 Hyperlipidemia, mixed (E78.2) Active confirmed Problem 51510267 Iron deficiency anemia, unspecified iron deficiency anemia type (D50.9) Active confirmed Problem 21639614 Sleep apnea in adult (G47.30) Active confirmed Problem 137701458 Osteopenia of lower leg, unspecified laterality (M85.869) Active confirmed Plan Of Treatment Pending Test Test Name Order Date MAMMO- BONE DENSITOMETRY (86728)([facility]) 09/08/2021 MAMMO- BONE DENSITOMETRY (30979)([facility]) 07/11/2021 COLOGUARD (99175) (EXACT-1000) 9 SLEEP STUDY AT [facility]STIC, [facility] (13092) 03/27/2019 Insurance Providers Payer Name Payer Address Payer Phone Subscriber Number Group Number Insured Name Patient Relationship to Insured Coverage Start Date Coverage End Date [place]ARE [place] PART B [address] [address] [address] [place], [place] [id number] Belen Ram Self - patient is the insured [employer] AND CASUALTY MCR SUPP [address] [address] ATTN CLAIMS DEPT [place], [place] [id number] Belen Ram Self - patient is the insured Medical [...] Cataract surgery left 2011 Catarct surgery right 2013 Colonoscopy Dental surgery 1973 D and C 2006 Eye surgery 1993 Inguinal Hernia repair 1960 Neuroplasty Decompression Median Nerve a t Carpal Tunnel 2005 Shoulder Arthroscopy with rotator cuff r epair right 2010 Surgery for relief of elevated intraocul ar pressure bilateral 2006 Tonsillectomy Total Abdominal Hysterectomy with remova l of both Ovaries 2006 Wrist Excision of Ganglion 1987 Glaucoma surgery 02/2019
[2025-04-10 11:26] LABS: Hemoglobin A1C 126.7155 umol/L; Total Hemoglobin (HGBA1C) 3445.0276 umol/L
[2025-04-10 14:58] LABS: Alanine Aminotransferase 18 U/L (0-31); Albumin Level 4.5 g/dL (3.5-5.0); Alkaline Phosphatase 65 U/L (39-117); Anion Gap 13 (12-20); Aspartate Amino Transferase 25 U/L (5-31); Blood Urea Nitrogen 17 mg/dL (9-16); Calcium 10.2 mg/dL (8.4-10.2); Carbon Dioxide 26 mmol/L (22-29); Chloride 106 mmol/L (96-108); Cholesterol 180 mg/dL (<200); Estimated Glomerular Filt Rate > 60; HDL Cholesterol 49 mg/dL (>40); Potassium 4.0 mmol/L (3.3-5.1); Sodium 141 mmol/L (135-145); Total Protein 7.1 g/dL (6.5-8.0); Triglycerides 168 mg/dL (<150)
== END 2025-04-10 09:52 | disposition home or self-care (01) ==
LOC: HO.WFDLDS 09:51
PROVIDERS: Visit Provider Nurse Practitioner Family
DX: Z13.1 Encounter for screening for diabetes mellitus (principal); I12.9 Hypertensive chronic kidney disease with stage 1 through stage 4 chronic kidney disease, or unspecified chronic kidney disease; N18.31 Chronic kidney disease, stage 3a; E78.5 Hyperlipidemia, unspecified; E03.9 Hypothyroidism, unspecified
CPT/HCPCS: 36415; 80053; 80061; 83036; 84443

== ENCOUNTER 2025-04-17 12:18 | Outpatient (AMB) | payer MEDICARE, OTHER, SELFPAY ==
--- NOTE | 2025-04-17 12:29 | MHC.PC.OV ---
Vital Signs 04/17/25 12:32 Height 5 ft 2 in Weight 206 lb 8 oz BMI 37.8 BP 120/76 Blood Pressure Location Rt brachial Position Sitting Respiration 16 Pulse 85 Pulse Source Pulse Oximeter Temp 98.2 F Temp Source Oral Pulse Oximetry (%) 99 Oxygen Delivery Method Room Air Intake Visit Reasons: 6 months 30 min routine Intake Note: Six months follow up Personal Finance Instructor Required: No Allergies amoxicillin (From Augmentin) Allergy (Mild, Verified 04/17/25 12:31) skin rash clavulanic acid (From Augmentin) Allergy (Mild, Verified 04/17/25 12:31) skin rash Medication List - Last Reconciled 04/17/25 by Gill Saldivar, SALES ASSISTANT [employer]- amlodipine 10 mg PO DAILY ammonium lactate 12% 1 appl topical DAILY aripiprazole 2 mg PO DAILY atorvastatin 40 mg PO DAILY bromfenac 0.09% 1 drp ophthalmic (eye) BID calcium carbonate (Calcium 600) 1,200 mg PO DAILY cholecalciferol (vitamin D3) 50 mcg PO DAILY clobetasol 0.05% 1 appl topical BEDTIME PRN 4 weeks clotrimazole 1% 1 appl topical BID 4 weeks denosumab (Prolia) 60 mg subcut [id number] lamotrigine 200 mg PO DAILY levothyroxine 100 mcg PO DAILY lorazepam 0.5 mg PO BID PRN losartan-hydrochlorothiazide 100-12.5 mg 1 tab PO DAILY metformin ER 500 mg PO BID 90 days multivitamin 1 tab PO DAILY omeprazole 20 mg PO DAILY triamcinolone acetonide 0.1% 1 appl topical BID Tobacco use date assessed: 04/17/25 Fall risk assessment: 1 Fall in past year (tripped over something) Last assessed Fall Risk: 04/17/25 Dental Screening Dental Screen Date: 10/12/24 HPI HPI Comments History of Present Illness Details 74-year-old female with hyperlipidemia, prediabetes, GERD, sleep apnea with CPAP, CKD 3, obesity, osteoporosis, MDD, bipolar 1 disorder, hypothyroidism, generalized anxiety disorder, hypertension, vitamin-D deficiency, iron deficiency anemia, proteinuria, CHF, glaucoma, stress incont Status post breast surgery 1996, cataract surgery on the left in 2011, cataract surgery in the right 2012 D&C 2005, eye surgery in 1992, inguinal hernia repair 1960 medial nerve decompression 2004, shoulder arthroscopy with rotator cuff repair on the right 2010, surgery for relief of elevated intra-ocular pressure bilat 2005, tonsillectomy, total abdominal hysterectomy with removal of both ovaries and 2005, excision of ganglion cyst of the wrist 1986, glaucoma surgery 2018 Social: job for 15 hours/week at [employer] working in activities family hx: as below Specialists: [facility] had appt 04/2025 Atopic derm will start new topical FU PRN Ophthalmology Dr Briggs [facility] first appt 07/11/24 Sleep Med Ortho PRN only Podiatry Dr Hyatt appt x 2 ? bunionectomy Will consult w/ [facility] Health Maintenance: Mammogram 11/19/2023 WNL DEXA 11/2023 DIAGNOSIS: Osteoporosis based on the lowest T-score value of -3.6 in the femoral neck applying World Health Organization criteria. Vaccines - UTD, Flu 2024 UTD, will get latest at pharm Colonoscopy 2022 normal 10 year recall * i dont have this record, per pt report Echo 11/2023 Echo 11/2023 trace mitral , pulmonic and tricuspid valve regurg Normal left ventricular cavity size. There is normal left ventricular wall thickness. The left ventricular systolic function is hyperdynamic. The visually estimated ejection fraction is >70%. Spectral Doppler is indicative of an impaired relaxation filling pattern. AAA screen: NA EKG: declined - The patient is a 73-year-old female presenting with chronic disease management. She has several chronic conditions including hyperlipidemia, GERD, CKD, iron deficiency anemia, hypothyroidism, and vitamin D deficiency. She manages her hyperlipidemia with atorvastatin 40 mg daily, and her lipid profile is at goal. She is on a proton pump inhibitor for GERD, does not take QD. Her CKD lab results have remained stable, and her iron deficiency anemia is currently managed with normal CBC and iron profile values. Her hypothyroidism is controlled on levothyroxine, maintaining her euthyroid status. However is feeling more fatigued and achy. TSH >3. Usually runs in the 2. Additionally, she is supplementing calcium and vitamin D to manage her vitamin D deficiency. Her hypertension is effectively controlled with a combination of losartan and hydrochlorothiazide. She controls her prediabetes with metformin, maintaining an A1c at desired levels. The patient uses a CPAP machine for her sleep apnea. Saw podiatry x 2 for painful foot blisters associated with severe hammer toes and bunions, subsequently referred to [facility] for bunion eval Waiting on appt @ this time. Saw derm for ongoing, severe itching on her wrists,will start new topical treatment. Bipolar controlled on current meds, active w/ outside prescriber. c/o low back pain w/o radicular sx or red flag sx. Apap does not help. Has bilat knee pain, R>L. Went to rheum who did xrays and told she has OA. No further fu was given. I dont have these xray results. She is getting prolia for her Osteoporosis. Last DEXA . Due for Mammo. Needs to schedule. Got flu shot. I advised against RSV. She should get pneumococcal series @ pharmacy. Review of Systems - Constitutional: Reports fatigue and weight perception issues; Denies significant weight change. - Musculoskeletal: Reports right knee pain and back pain; Denies recent falls or injury. - Endocrine: Reports managed hypothyroidism; Denies additional symptoms beyond fatigue. - Dermatological: Reports eczema; Denies changes in moles. - Gastrointestinal: Denies recent exacerbations of GERD. - Cardiovascular: Denies chest pain or recent alteration in blood pressure control. - Neurological: Denies weakness, tingling, or shoot-down pain in legs beyond localized back pain. Exam: awake alert NAD scleras nonicteric bilat MMM RRR, 2/6 systolic murmur LSB LS dim at bases otherwise clear throughout Mood and affect appropriate Trace edema BLE R>L hairless, chronic vascular skin changes, decreased PP Spine nontender, paraspinal muscle tenderness lumbar area. Normal strength and tone. Bilat Feet: Results - Labs: See below - Tests and Diagnostics: Sleep apnea managed successfully with CPAP usage. Discussion Notes I discussed the patient's well-maintained status for her chronic conditions including hypertension, hyperlipidemia, and prediabetes, evidenced by stable labs. We talked about her fatigue and discussed the possible mood-related origin and recommended evaluating her CPAP usage and day-to-day stressors. The patient detailed her knee and back pain issues; I advised a referral for podiatry and orthopedics for assessment, potentially to consider surgical intervention and to manage pain. We discussed ongoing dermatology care for eczema management and continued the same with potential follow-ups. 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 I recommended modifications to her levothyroxine dosing to manage her current TSH levels. Immunization was covered as up-to-date. We outlined follow-ups for podiatry and emphasized coordination of care for her knee and foot issues with potential consideration for both orthopedic and podiatric evaluation. Further, I provided anticipatory guidance for lifestyle modifications aimed at weight management and stress reduction. Patient was given time to ask questions. All questions were answered to their satisfaction. Assessment and Plan 1. Hyperlipidemia: Continue atorvastatin 40 mg as the lipid profile is at the target goal, indicating effective management. 2. GERD: Maintain current PPI regimen PRN 3. Chronic Kidney Disease (CKD): Continue current management with routine monitoring as lab results remain stable. 4. Iron Deficiency Anemia: Iron levels are within normal limits; no changes in management are required. 5. Hypothyroidism: Take 200mcg once per week and then 100mcg 6 days a week See if this helps her fatigue/aches. TSH is usually around 2; >3 may be too high for her. . 6. Vitamin D Deficiency/Osteoporosis: Continue calcium and vitamin D supplementation as previously prescribed. Prolia as per Rheum. Due for repeat DEXA. 7. Essential Hypertension: Blood pressure control is achieved on the current medication regimen. 8. Prediabetes: Maintain metformin as the patient's A1c is at the goal. 9. Sleep Apnea: Ensure adherence to CPAP use and consider equipment update documentation for insurance purposes if indicated. 10. Hammertoes/Bunion: Cont care w/podiatry & [facility] for surgical consult 11. Eczema/rash: Cont care w/ derm and new topical treatment 12. Obesity: Emphasized improved dietary intake during daytime; Wt loss since last visit. 13. OA of knees - refer to [facility]. Xrays were done @ Rheum. 14. Back pain - refer to Chiro. Patient Instructions - Continue all current medications as prescribed. - Obtain pneumococcal vaccinations from your pharmacy. - Follow up with orthopedics for knee evaluation and potential procedures. - Make an appointment with a chiropractor for back pain management. RTO Dec AWV sooner PRN Consent Patient was informed and verbally consented to the use of an ambient scribe for clinic note documentation during this visit. Total time spent caring for the patient today was 47 minutes. This includes time spent before the visit reviewing the chart, time spent during the visit, and time spent after the visit on documentation, reviewing laboratory results, diagnostic imaging, medications, performing a medically necessary evaluation, counseling on diagnoses, care coordination, ordering appropriate tests, ordering appropriate medications, review of tests performed by other providers, reporting test results with the patient, communication with other healthcare providers. [facility] Medical History (Updated 04/17/25 @ 16:23 by DION[facility]IO [facility]) No pertinent past medical history Surgical History History of colonoscopy (~2022) History of rotator cuff surgery H/O: hysterectomy No pertinent past surgical history Family History Mother Hypertension Stroke Father Arthritis, rheumatoid Glaucoma Social History (Updated 04/17/25 @ 12:36 by Nilda Mendoza CMA) Household Members: None Housing: Apartment 75 years or older and lives alone: No Alcohol intake: current Alcohol intake frequency: holidays/special occasions only Patient Tobacco Use Status: Former Tobacco user Tobacco use type: Cigarette Years Smoked: Only smoked during college e-Cigarette/Vaping Use: Never Used service: No Current occupational status: retired Current occupational exposures/hazards: No Cognitive needs: No Hearing needs: No Vision needs: No Questionnaire Thrive Questionnaire Date Thrive assessed: 10/12/24 I am a: Patient What is your living situation today?: I have a steady place to live Within the past 12 months, did the food you bought not last and you didn't have the money to get more?: Never true Within the past 12 months, did you worry whether your food would run out before you got money to buy more?: Never true Do you have trouble paying for medicines?: No Do you have trouble getting transportation to medical appointments?: No Do you have trouble paying your heating and electricity bill?: No Do you have trouble taking care of your child, family member or friend?: No Do you have trouble with day-to-day activities such as bathing, preparing meals, shopping, managing finances, etc.?: No Are you currently unemployed and looking for a job?: No Are you interested in more education?: No Please select the resources that you would like help with: None Currently or been in a relationship where the following occur: No concerns reported THRIVE Score: 0 AUDIT C Alcohol Use Questionnaire (AUDIT-C) 1. How often do you have a drink containing alcohol?: Monthly or less 2. How many drinks containing alcohol do you have on a typical day when you are drinking?: 1 or 2 3. How often do you have six or more drinks on one occasion?: Never Total Score: 1 AYANNA-7 AMB Questionnaire AYANNA-7 Date AYANNA - 7 assessed: 10/12/24 Source: Developed by Drs. Jerome Carranza, Padmini Bower, Jay Jay Gonzalez and colleagues, with an educational [place] from [employer]. Physical exam (Primary Care) Vital Signs: Last Vital Signs Temp 98.2 F 04/17/25 12:32 Pulse 85 04/17/25 12:32 Resp 16 04/17/25 12:32 BP 120/76 04/17/25 12:32 Pulse Ox 99 04/17/25 12:32 Oxygen Delivery Method Room Air 04/17/25 12:32 BMI result Body Mass Index 37.8 Tobacco/Smoking Status: Tobacco use Status Tobacco use date assessed 04/17/25 04/17/25 12:36 Patient Tobacco Use Status Former Tobacco user 04/17/25 12:36 Tobacco use type Cigarette 04/17/25 12:36 e-Cigarette/Vaping Use Never Used 04/17/25 12:36 Thrive Assessment: Date of Thrive Assessment Date Thrive assessed 10/12/24 04/17/25 12:30 Currently or been in a relationship where the following occur: No concerns reported Results Reviewed Results Reviewed: Laboratory 04/10/25 Result Units Range Interpretation Provider Comments Sodium Level 141 mmol/L (135-145) Potassium Level 4.0 mmol/L (3.3-5.1) Chloride Level 106 mmol/L (96-108) Carbon Dioxide Level 26 mmol/L (22-29) Anion Gap 13 (12-20) Blood Urea Nitrogen 17 mg/dL (9-16) High Creatinine 0.91 mg/dL (0.5-1.4) Estimated Creatinine Clearance Calc Not Reportable Estimat Glomerular Filtration Rate > 60 Random Glucose 100 mg/dL (60-115) Estimated Average Glucose 111 mg/dL Hemoglobin A1c Percent 5.5 % (<6.0) Calcium Level 10.2 mg/dL (8.4-10.2) Total Bilirubin 0.4 mg/dL (0.0-1.0) Aspartate Amino Transf (AST/SGOT) 25 U/L (5-31) Alanine Aminotransferase (ALT/SGPT) 18 U/L (0-31) Alkaline Phosphatase 65 U/L (39-117) Total Protein 7.1 g/dL (6.5-8.0) Albumin 4.5 g/dL (3.5-5.0) Triglycerides Level 168 mg/dL (<150) High Cholesterol Level 180 mg/dL (<200) LDL Cholesterol, Calculated 98 mg/dL (<100) HDL Cholesterol 49 mg/dL (>40) Thyroid Stimulating Hormone (TSH) 3.45 uIU/mL (0.32-4.0) Coding Level of Care Code Est Pt Level 5 (00631) Complex EM visit Add On G2211 Diagnoses Bilateral primary osteoarthritis of knee M17.0 Acute bilateral low back pain without sciatica M54.50 Chronicity: acute Back pain laterality: bilateral Sciatica presence: without sciatica Stage 3a chronic kidney disease N18.31 Chronic kidney disease stage 3 subtype: stage 3a (GFR 45-59) Prediabetes R73.03 Primary hypertension I10 Hypertension type: primary hypertension Hyperlipidemia LDL goal <100 E78.5 Acquired hypothyroidism E03.9 Hypothyroidism type: acquired Vitamin D deficiency E55.9 Other osteoporosis without current pathological fracture M81.8 Osteoporosis type: other Presence of current pathological fracture: without current pathological fracture BRIANNA on CPAP G47.33 Assessment & Plan Assessment & Plan (1) Bilateral primary osteoarthritis of knee: Code(s): M17.0 - Bilateral primary osteoarthritis of knee Category: Medical (2) Low back pain: Code(s): M54.50 - Low back pain, unspecified Category: Medical Qualifiers: Chronicity: acute Back pain laterality: bilateral Sciatica presence: without sciatica Qualified Code(s): M54.50 - Low back pain, unspecified (3) CKD (chronic kidney disease) stage 3, GFR 30-59 ml/min: Comment: based on previous records; Code(s): N18.30 - Chronic kidney disease, stage 3 unspecified Category: Medical Qualifiers: Chronic kidney disease stage 3 subtype: stage 3a (GFR 45-59) Qualified Code(s): N18.31 - Chronic kidney disease, stage 3a (4) Prediabetes: Comment: on Metformin ER 500mg po BID Code(s): R73.03 - Prediabetes Category: Medical (5) HTN (hypertension): Comment: BP goal < 130/80. losartan 100 mg/hydrochlorothiazide 12.5 mg 1 tablet once per day sent to the pharmacy should take this along with the amlodipine 10 mg daily. Code(s): I10 - Essential (primary) hypertension Category: Medical Qualifiers: Hypertension type: primary hypertension Qualified Code(s): I10 - Essential (primary) hypertension (6) Hyperlipidemia LDL goal <100: Comment: on atorvastatin 40mg QD LDL at goal, continue atorvastatin 40 mg daily Code(s): E78.5 - Hyperlipidemia, unspecified Category: Medical (7) Hypothyroid: Comment: on levothyroxine 100mcg QD Code(s): E03.9 - Hypothyroidism, unspecified Category: Medical Qualifiers: Hypothyroidism type: acquired Qualified Code(s): E03.9 - Hypothyroidism, unspecified (8) Vitamin D deficiency: Comment: on Vitamin d3 50mcg QD + Calcium Carb 1200 mg QD Vitamin-D within normal limits, continue Code(s): E55.9 - Vitamin D deficiency, unspecified Category: Medical (9) Osteoporosis: Comment: 11/2023 DIAGNOSIS: Osteoporosis based on the lowest T-score value of -3.6 in the femoral neck applying World Health Organization criteria. Discussed tx options such as Fosomax VS referral to Rheum/endo for further workup and treatment options Cont wt bearing exercises, supplements. Normal Vit D + Ca levels. On Prolia, managed by Rheum Code(s): M81.0 - Age-related osteoporosis without current pathological fracture Category: Medical Qualifiers: Osteoporosis type: other Presence of current pathological fracture: without current pathological fracture Qualified Code(s): M81.8 - Other osteoporosis without current pathological fracture (10) BRIANNA on CPAP: Code(s): G47.33 - Obstructive sleep apnea (adult) (pediatric) Category: Medical Plan . Orders: Orders Complete Blood Count no Diff 07/09/25 E03.9 - Hypothyroidism, unspecified, E55.9 - Vitamin D deficiency, unspecified, E78.5 - Hyperlipidemia, unspecified, I10 - Essential (primary) hypertension, M81.8 - Other osteoporosis without current pathological fracture, N18.31 - Chronic kidney disease, stage 3a, R73.03 - Prediabetes IRON PROFILE 07/09/25 E03.9 - Hypothyroidism, unspecified, E55.9 - Vitamin D deficiency, unspecified, E78.5 - Hyperlipidemia, unspecified, I10 - Essential (primary) hypertension, M81.8 - Other osteoporosis without current pathological fracture, N18.31 - Chronic kidney disease, stage 3a, R73.03 - Prediabetes Vitamin B12 and Folate 07/09/25 E03.9 - Hypothyroidism, unspecified, E55.9 - Vitamin D deficiency, unspecified, E78.5 - Hyperlipidemia, unspecified, I10 - Essential (primary) hypertension, M81.8 - Other osteoporosis without current pathological fracture, N18.31 - Chronic kidney disease, stage 3a, R73.03 - Prediabetes Microalbumin, Random (w Creat) 07/09/25 E03.9 - Hypothyroidism, unspecified, E55.9 - Vitamin D deficiency, unspecified, E78.5 - Hyperlipidemia, unspecified, I10 - Essential (primary) hypertension, M81.8 - Other osteoporosis without current pathological fracture, N18.31 - Chronic kidney disease, stage 3a, R73.03 - Prediabetes TSH reflex Free T4 07/09/25 E03.9 - Hypothyroidism, unspecified, E55.9 - Vitamin D deficiency, unspecified, E78.5 - Hyperlipidemia, unspecified, I10 - Essential (primary) hypertension, M81.8 - Other osteoporosis without current pathological fracture, N18.31 - Chronic kidney disease, stage 3a, R73.03 - Prediabetes Vitamin D 25-OH Total 07/09/25 E03.9 - Hypothyroidism, unspecified, E55.9 - Vitamin D deficiency, unspecified, E78.5 - Hyperlipidemia, unspecified, I10 - Essential (primary) hypertension, M81.8 - Other osteoporosis without current pathological fracture, N18.31 - Chronic kidney disease, stage 3a, R73.03 - Prediabetes Referrals Orthopedics Referral M17.0 - Bilateral primary osteoarthritis of knee Chiropractic Referral M54.50 - Low back pain, unspecified Patient Instructions: Please see if you can do your DEXA at the same time as your Mammo, as last time was 11/2023 Recommend pneumococcal vaccine - at the pharmacy
[2025-04-17 12:32] VITALS: BP 120/76; PULSE 85; RESP 16; TEMP 36.8; O2SAT 99; BMI 37.8
--- OUTSIDE RECORDS SUMMARY | 2025-04-17 14:46 | XMS_ITS | Clinical Summary ---
Author Organization [facility] Address [address] [place] [id number] Phone Care Team Providers Care Medical Records Supervisor Name Role Phone Mansoor Marsh MD Primary [...] 2000 OSTEOPOROSIS SCREENING INITI AL (ONE-TIME) 11/28/2015 INFLUENZA VACCINE (#1) 2025 COVID-19 VACCINE (1 - 2023-2 5 season) 2025 RSV VACCINE (1 - 1-dose 75+ series) [...] Devices Not on file Insurance [address] [place] [address] MEDICARE PART A & B GENERIC MEDICARE SUPPLEMENT MEDICARE PART A & B GENERIC MEDICARE SUPPLEMENT MEDICARE PART A & B GENERIC MEDICARE SUPPLEMENT MEDICARE PART A & B GENERIC MEDICARE SUPPLEMENT MEDICARE PART A & B Member Subscriber Plan / Payer (Ef fective 2023) Name:Belen Ram Member ID:[id number] Relation to Subscriber:Self Name:Belen Ram Subscriber ID:[id number] Payer ID:[id number] Group ID:Not on file Type:Medicare Address: [employer] [address] [place] [phone] GENERIC MEDICARE SUPPLEMENT [address] [place] [address] MEDICARE PART A & B GENERIC MEDICARE SUPPLEMENT Care Teams Medical Records Supervisor Relationship Specialty Start Date End Date Mansoor Marsh MD [address] [place] [address] PCP - General Family Medicine 12/06/23 Additional Source Comments The information contained in this document represents components of the legal health record. It is not the complete legal health record.[facility]
--- OUTSIDE RECORDS SUMMARY | 2025-04-17 14:46 | XMS_ITS ---
Author Name Mary Correa Address Unknown Organization [place] Care Team Providers Care Pmo Business Analyst Name Role Phone Unavailable Primary Care Physician Unavailab le History Of Present Illness This is a 74 year old female who is a new patient who is being seen for a chief complaint of rash. Location: arms and handsRash Type: flaking, itchy, and redSeverity: moderateDuration: 9 monthsCurrent Medications: no treatmentAdditional History: States she has only been applying topical OTC moisturizers. Has not tried any OTC or prescription steroids. She describes her skin as feeling dry, itchy and like ???alligator skin?? Pt reports mole on right side of torso Allergies, Adverse Reactions, Alerts Substance RxNorm Reaction(s) Severity Status Start Da te Augmentin Rash unspecified active Medications Medication Generic Name RxNorm Strength Strength Unit Route Dose Dose Form Frequency Date Started Date Ended Status Indication Sig bromfenac bromfena c 0.07 % Ophtha lmic (eye) 1 drops bid active latanoprost latanopr ost 0.005 % Ophtha lmic (eye) 1 drops qd active latanoprost latanopr ost 0.005 % Ophtha lmic (eye) 1 drops q other day active timolol timolol 0.5 % Ophtha lmic (eye) 1 drops bid active triamcinolo ne acetonide triamcin olone acetonid e [id number] 0.1 % Topica l ointm ent 04/13/20 25 active Appl y twic e kait y to acti vely red, roug h and itch y area s unti l smoo th on extr emit ies. Do not appl y to face , groi n or armp its. Use up to 2 week s at a time foll owed by 1 week off tiffanie tmen t. Adults Multivitami n multivit gonsalez-min -iron-FA -vit K 18 mg iron-400 mcg-25 mcg Oral 1 table t qd active Alive Vitamin C ascorbic acid (vitamin C) 1,000 mg Oral 1 capsu le qd active amlodipine amlodipi ne 10 mg Oral 1 table t qd active aripiprazol e aripipra zole 2 mg Oral 1 table t qd active atorvastati n atorvast atin 40 mg Oral 1 table t qd active Calcium Complex calc-D3- mag-B6-f olic-K1- mins 1,0000 mg Oral 1 capsu le qd active duloxetine duloxeti ne 30 mg Oral 1 Capsu le, Delay ed Relea se Sprin kle qd active lamotrigine lamotrig ine 200 mg Oral 1 table t qd active levothyroxi ne levothyr oxine 100 mcg Oral 1 capsu le qd active losartan losartan 100 mg Oral 1 table t qd active magnesium magnesiu m 400 mg Oral 1 table t qd active metformin metformi n 500 mg Oral 1 table t bid active omeprazole omeprazo le 20 mg Oral 1 capsu le,de layed relea se (ente caleb coate d) qd active Vitamin D3 cholecal ciferol (vitamin D3) 25 mcg (1,000 unit) Oral 1 capsu le qd active Prolia denosuma b 60 mg/mL Subcut aneous 1 Syrin ge q 6 months active Problems Problem Code Type Status Date of Diagnosis Da te of Resolution Atopic dermatitis (disorder) 50152535(SNOM ED) Diagnosis active 04/13/2025 Seborrheic keratosis (disorder) 948052216(SNO MED) Diagnosis active 04/13/2025 Depressive disorder (disorder) 32739348(SNOM ED) Problem active Increased blood pressure (finding) 71515599(SNOM ED) Problem active History of thyroid disorder (situation) 606790276(SNO MED) Problem active Eczema (disorder) 97291915(SNOM ED) Problem active Results No data Encounters Service provided at [address], [address], [place], [place] [id number]. Office phonenumber is [phone]. Office fax number is [phone]. Encounter Diagnosis Location Date / Time Type Atopic Dermatitis (L20.89)Se borrheic Keratoses (L82.1) [place] 04/13/2025 14:15:00 [facility] [id number] Reason For Referral No data Procedures Procedure Date Documentation of past medical history (p rocedure) Documentation of past medica l history (procedure) Tonsillectomy 6Hernia 1961Right rotator cuff surgery 2008Hysterectomy 2005 Review Of Systems Provider reviewed on Apr 13, 2025.A complete review of systems was performed and was notable for thyroid problems and depression.No Problems With Healing, No Problems With Scarring (hypertrophic Or Keloid), No Problems With Bleeding, No Immunosuppression, No Hay Fever, No Chest Pain, No Fever Or Chills, No Night Sweats, No Unintentional Weight Loss, No Sore Throat, No Blurry Vision, No Abdominal Pain, No Bloody Stool, No Bloody Urine, No Joint Aches, No Muscle Weakness, No Neck Stiffness, No Headaches, No Seizures, No Shortness Of Breath, No Wheezing, And No Anxiety. Assessment 1.Atopic DermatitisCounselingTreatment Regimen: Initiate Treatment - Triamcinolone 0.1% ointment twice daily up to 2 weeks at a time followed by 1 week of CeraVe body cream only and repeat as needed.Prescription: triamcinolone acetonide 0.1 % topical ointment TP2.Seborrheic KeratosesCounseling Plan of Care Future visit PRN - Follow up PRN Code Detail Instructions 8783289 triamcinolone aceton elio 0.1 % topical ointment Apply twice daily to actively red, rough and itchy areas until smooth on extremities. Do not apply to face, groin or armpits. Use up to 2 weeks at a time followed by 1 week off treatment. Instructions * I counseled the patient regarding the following:Discussed chronicity and waxing/waning course. Gentle skin care reviewed in detail and encouraged - short showers <10 minutes with gentle cleanser or fragrance free soap only to dirty areas, followed by application of thick emollient. Emollient should be applied at least once daily even if patient does not bathe. Personal care products should be dye and fragrance free.I recommended the following: Moisturizers - Thick body cream or ointment (such as CeraVe, Vanicream) * Begin the following treatment(s): Triamcinolone 0.1% ointment twice daily up to 2 weeks at a time followed by 1 week of CeraVe body cream only and repeat as needed. ::Soak and seal before bed with thick petrolatum or equivalentEmollient liberally after washing and throughout dayAvoid wet work as able or use barrier on hands * I counseled the patient regarding the following:Seborrheic keratoses are banal. No treatment is necessary unless symptomatic. Social History Code Activity Start Date End Date 806377807 (SNOMED) Never smoker Sex female Sexual orientation Don't Know Gender identity Unspecified Vital Signs No data
--- OUTSIDE RECORDS SUMMARY | 2025-04-17 14:46 | XMS_ITS | Patient Health Record ---
Author Organization [facility] Billing Info Address [address] [place] [address] Care Team Providers Care Tool And Fixture Repairer Name Role Phone EDWIGE LONDON Primary [...] 90 days Active Calcium 500 + D [id number] 1 tab Orally Twice a day Active Duloxetine HCl 30 MG 1 capsule Orally Da jacquelyn for 90 days Active [place] 3 1000 MG 1 capsule Orally twi [...] IM Intramuscular 05/25/2016 Administered PNEUMOCOCCAL 13 CONJ ([id number]) IM Intramuscular 05/02/2018 Administered FLU (Past vaccine [...] vaccine of unknown type) Unknown 08/09/2003 Administered zZOSTER (Past vaccine of unknown type)121 Unknown 12/04/2013 Administered TDAP (Past vaccine of unknown type) IM Intramuscular 03/14/2012 Administered zFLU 4V (FLUZONE QUAD), 3 YRS+, NO PRES - ALL PAYORS Unknown 07/05/2017 Administered zFLU 4V (FLUZONE QUAD), 3 YRS+, NO PRES - ALL PAYORS IM Intramuscular 05/02/2018 Administered ZOSTER (SHINGRIX) Unknown 03/27/2019 Administered given at [facility] on 03/27/19 Social History Tobacco Use: Social History Observation Description Date Details (start date - stop date) Never Smoker NA - NA Tobacco Status: Question Answer Notes Patient is a never smoker Problems Problem Type SNOMED Code ICD Code Onset Dates Problem Status W/U Status Risk Notes Problem 951498538 Prediabetes (R73.03) Active confirmed Problem 648968074 Morbid obesity (E66.01) Active confirmed Problem 27720595 Vitamin D deficiency (E55.9) Active confirmed Problem 699055014 Dermatitis (L30.9) Active confirmed Problem 456446518 Bipolar 1 disorder (F31.9) Active confirmed Dr. Bower Problem 328971312 Hypothyroidism (acquired) (E03.9) Active confirmed Problem 279745143 Obesity (BMI 30-39.9) (E66.9) Active confirmed Problem 021754397 Hyperlipidemia, mixed (E78.2) Active confirmed Problem 57183433 Iron deficiency anemia, unspecified iron deficiency anemia type (D50.9) Active confirmed Problem 01669990 Sleep apnea in adult (G47.30) Active confirmed Problem 952489320 Osteopenia of lower leg, unspecified laterality (M85.869) Active confirmed Plan Of Treatment Pending Test Test Name Order Date MAMMO- BONE DENSITOMETRY (12971)([facility]) 09/08/2021 MAMMO- BONE DENSITOMETRY (31709)([facility]) 07/11/2021 COLOGUARD (89171) (EXACT-1000) 9 SLEEP STUDY [facility] ([address]43) 03/27/2019 Insurance Providers Payer Name Payer Address Payer Phone Subscriber Number Group Number Insured Name Patient Relationship to Insured Coverage Start Date Coverage End Date [place] [address] [address] [address] NETWORK [place], [place] [id number] Belen Ram Self - patient is the insured [employer] M[employer] SUPP [address] [address] ATTN CLAIMS DEPT [place], [place] [id number] Belen Ram Self - patient is the [...]
== END 2025-04-17 13:40 | disposition home or self-care (01) ==
LOC: HO.HMCFM 12:19
PROVIDERS: PCP Nurse Practitioner Family; Visit Provider Nurse Practitioner Family
DX: I12.9 Hypertensive chronic kidney disease with stage 1 through stage 4 chronic kidney disease, or unspecified chronic kidney disease (principal); N18.31 Chronic kidney disease, stage 3a; E78.5 Hyperlipidemia, unspecified; M17.0 Bilateral primary osteoarthritis of knee; M54.50 Low back pain, unspecified; R73.03 Prediabetes; E03.9 Hypothyroidism, unspecified; E55.9 Vitamin D deficiency, unspecified; M81.8 Other osteoporosis without current pathological fracture; G47.33 Obstructive sleep apnea (adult) (pediatric)

== ENCOUNTER → 2025-04-17 12:18 | Outpatient (BNVA) | payer MEDICARE, OTHER, SELFPAY | PROVIDERS: PCP Nurse Practitioner Family; Visit Provider Nurse Practitioner Family | DX: R73.03 Prediabetes (principal); E78.5 Hyperlipidemia, unspecified; K21.9 Gastro-esophageal reflux disease without esophagitis; D50.9 Iron deficiency anemia, unspecified; E03.9 Hypothyroidism, unspecified; E55.9 Vitamin D deficiency, unspecified; F31.9 Bipolar disorder, unspecified; M81.0 Age-related osteoporosis without current pathological fracture; I12.9 Hypertensive chronic kidney disease with stage 1 through stage 4 chronic kidney disease, or unspecified chronic kidney disease; L30.9 Dermatitis, unspecified; E66.9 Obesity, unspecified; M17.0 Bilateral primary osteoarthritis of knee; M54.50 Low back pain, unspecified; N18.31 Chronic kidney disease, stage 3a; M81.8 Other osteoporosis without current pathological fracture; G47.33 Obstructive sleep apnea (adult) (pediatric); Z99.89 Dependence on other enabling machines and devices; Z68.37 Body mass index [BMI] 37.0-37.9, adult; Z79.899 Other long term (current) drug therapy | CPT/HCPCS: 99212 ==

== ENCOUNTER 2025-05-04 09:49 | Outpatient (REF) | payer MEDICARE, OTHER, SELFPAY ==
--- NOTE | ~2025-05-04 | MM_ITS ---
EXAMINATION: MM SCREENING DIGITAL BREAST TOMOSYNTHESIS, BILATERAL CLINICAL INFORMATION: Screening. Asymptomatic. COMPARISON: Mammography: Comparison is made with available priors TECHNIQUE: Digital breast mammography with tomosynthesis is performed in both the craniocaudal and mediolateral oblique views along with computer-aided detection (CAD). FINDINGS: The breasts are heterogeneously dense, which may obscure small masses. Status post bilateral mastopexy. There are no significant masses, abnormal calcifications, or other abnormalities. MM/MM tomosynthesis screening BI IMPRESSION: No mammographic evidence of malignancy. ASSESSMENT: BI-RADS Category 2: Benign RECOMMENDATION: Routine annual mammography screening. 1 year F/U This examination should not preclude the clinical evaluation of a suspicious palpable abnormality. This patient's information was entered into a reminder system with a target due date for their next mammogram. Electronically signed by: Michelle Padilla DO 05/08/2025 09:39 AM EDT
--- OUTSIDE RECORDS SUMMARY | 2025-05-04 10:54 | XMS_ITS | Patient Health Record ---
Author Organization [facility] Billing Info Address [address] [place] [address] Care Team Providers Care Ballistics Expert Name Role Phone EDWIGE LONDON Primary Care Provider [phone] Allergies Allergen (clinical drug ingredient) Drug/Non Drug [...] 90 days Active Calcium 500 + D [id number] 1 tab Orally Twice a day Active Duloxetine HCl 30 MG 1 capsule Orally Da jacquelyn for 90 days Active [place] 3 1000 MG 1 capsule Orally twi [...] IM Intramuscular 05/25/2016 Administered PNEUMOCOCCAL 13 CONJ ([id number]) IM Intramuscular 05/02/2018 Administered FLU (Past vaccine [...] ZOSTER (SHINGRIX) Unknown 03/27/2019 Administered [facility] at [facility] on 03/27/19 Social History Tobacco Use: Social History Observation Description Date Details (start date - stop date) Never Smoker NA - NA Tobacco Status: Question Answer Notes Patient is a never smoker Problems Problem Type SNOMED Code ICD Code Onset Dates Problem Status W/U Status Risk Notes Problem 901650923 Prediabetes (R73.03) Active confirmed Problem 625306991 Morbid obesity (E66.01) Active confirmed Problem 09636090 Vitamin D deficiency (E55.9) Active confirmed Problem 377997818 Dermatitis (L30.9) Active confirmed Problem 806755639 Bipolar 1 disorder (F31.9) Active confirmed Dr. Bower Problem 853694090 Hypothyroidism (acquired) (E03.9) Active confirmed Problem 361966767 Obesity (BMI 30-39.9) (E66.9) Active confirmed Problem 503700188 Hyperlipidemia, mixed (E78.2) Active confirmed Problem 30791128 Iron deficiency anemia, unspecified iron deficiency anemia type (D50.9) Active confirmed Problem 47234539 Sleep apnea in adult (G47.30) Active confirmed Problem 558535383 Osteopenia of lower leg, unspecified laterality (M85.869) Active confirmed Plan Of Treatment Pending Test Test Name Order Date MAMMO- BONE DENSITOMETRY (13991)([facility]) 09/08/2021 MAMMO- BONE DENSITOMETRY (29455)([facility]) 07/11/2021 COLOGUARD (48037) (EXACT-1000) 9 [facility] ([id number] 03/27/2019 Insurance Providers Payer Name Payer Address Payer Phone Subscriber Number Group Number Insured Name Patient Relationship to Insured Coverage Start Date Coverage End Date [place] [address] [address] [address] [place], [place] [id number] [phone] [id number] Belen Ram Self - patient is the insured [employer] M[employer] SUPP [address] [address] ATTN CLAIMS DEPT [place], [place] [id number] [phone] [id number] Belen Ram Self - patient is the [...]
--- OUTSIDE RECORDS SUMMARY | 2025-05-04 10:54 | XMS_ITS | Clinical Summary ---
Author Organization [facility] Address [address] [place] [address] Phone Care Team Providers Care Molder Apprentice Name Role Phone Mansoor Marsh MD Primary [...] Devices Not on file Insurance [address] [place] [address] MEDICARE PART A & B GENERIC MEDICARE SUPPLEMENT MEDICARE PART A & B GENERIC MEDICARE SUPPLEMENT MEDICARE PART A & B GENERIC MEDICARE SUPPLEMENT MEDICARE PART A & B GENERIC MEDICARE SUPPLEMENT MEDICARE PART A & B Member Subscriber Plan / Payer (Ef fective 2023) Name:Belen Ram Member ID:[id number] Relation to Subscriber:Self Name:Belen Ram Subscriber ID:[id number] Payer ID:[id number] Group ID:Not on file Type:Medicare Address: [email or web address] [address] [place] [phone] GENERIC MEDICARE SUPPLEMENT [address] [place] [address] MEDICARE PART A & B GENERIC MEDICARE SUPPLEMENT Care Teams Molder Apprentice Relationship Specialty Start Date End Date Mansoor Marsh MD [address] [place] [address] PCP - General Family Medicine 12/06/23 Additional Source Comments The information contained in this document represents components of the legal health record. It is not the complete legal health record.[facility]
== END 2025-05-04 09:50 | disposition home or self-care (01) ==
LOC: HO.MAMMO 09:49
PROVIDERS: Visit Provider Nurse Practitioner Family
DX: Z12.31 Encounter for screening mammogram for malignant neoplasm of breast (principal)
CPT/HCPCS: 77063; 77067

== ENCOUNTER → 2025-05-04 10:30 | Outpatient (BNV) | payer MEDICARE, OTHER, SELFPAY | PROVIDERS: Visit Provider Internal Medicine | DX: Z12.31 Encounter for screening mammogram for malignant neoplasm of breast (principal) | CPT/HCPCS: 77063; 77067 ==

== ENCOUNTER 2025-07-10 10:20 | Outpatient (REF) | payer MEDICARE, OTHER, SELFPAY ==
--- OUTSIDE RECORDS SUMMARY | 2025-07-08 11:56 | XMS_ITS | Encounter Summary ---
Author Organization [facility] Address [address] [facility] [address] [place] [phone] Phone Care Team Providers Care Nanotechnology Technician Name Role Phone Pcp, Unknown Primary Care Provider Unavailabl e Reason for Visit * Reason Comments Leg Pain Knee Pain Encounter Details Date Type Department Care Team (Late st Contact Info) Description 07/08/2025 11:56 AM EST - 07/08/2025 5:11 PM EST Emergency [facility] [address] [place] [address] Nisa Vega MD [address] [place] [address] [email or web address] Discharge Disposition: Home or Self Care Social History Tobacco Use Types Packs/Day Years Used Date Smoking Tobacco: Former Cigarettes Smokeless Tobacco: Never Education Answer Date Recorded Are you interested in more education? Not on maya e 12/06/2023 Are you concerned about learning? Not on file 12/06/2023 No 12/06/2023 No 12/06/2023 Digital Access Answer Date Recorded No 12/06/2023 No 12/06/2023 Reliable internet access at home? Not on file 12/06/2023 Device with a working camera? Not on file Intimate Partner Violence Answer Date R ecorded Are you denied basic needs s uch as food, clothing, or medical care? No 07/08/2025 In the past 12 months have y ou been in a relationship with a person who hurts, threatens, or tries to control you? No 07/08/2025 Are you denied basic needs s uch as food, clothing, or medical care? No 07/08/2025 In the past 12 months have y ou been in a relationship with a person who hurts, threatens, or tries to control you? No 07/08/2025 Comments Unknown Sex and Gender Information Value Date Recorded Sex Assigned at Female 07/08/2025 11:46 AM EST Legal Sex Female 2:13 PM EDT Gender Identity Female 07/08/2025 11:46 AM EST Sexual Orientation Not on file documented as of this encounter Last Filed Vital Signs Vital Sign Reading Time Taken Comments Blood Pressure 134/84 07/08/2025 5:07 PM EST Pulse 76 07/08/2025 5:07 PM EST Temperature 36.9 C (98.4 F) 07/08/2025 3:39 PM EST Respiratory Rate 14 07/08/2025 5:07 PM EST Oxygen Saturation 99% 07/08/2025 5:07 PM EST Inhaled Oxygen Concentration - - Weight 90.7 kg (200 lb) 07/08/2025 11:45 AM EST Height 157.5 cm (5' 2 ) 07/08/2025 11:45 AM EST Body Mass Index 36.58 07/08/2025 11:45 AM EST documented in this encounter Functional Status * Calculated C-SSRS Risk Score (Lifetime/Recent) Answer Date of Assessment Author No Risk Indicated 07/08/2025 11:45 AM Latasha Butler RN * [place] Suicide Severity Rating Scale (Screener/Recent Self-Report) Question Answer Date of Assessment Author 1. Wish to be (Past 1 Month) No 025 11:45 AM Latasha Butler, SUSAN 2. Non-Specific Active Suici kuldeep Thoughts (Past 1 Month) No 07/08/2025 11:45 AM Latasha Butler, RN 6. Suicidal Behavior (Lifetime) No 11:45 AM Latasha Butler, SUSAN documented as of this encounter Discharge Instructions * Discharge Instructions* Nisa Vega MD - 07/08/2025 4:55 PM EST You were seen in the emergency department for concerns of right knee pain and some leg swelling. Weconducted an ultrasound of your leg which does not show any evidence of a clot. We also did an x-ray of your knee which does show that you have osteoarthritis with some severe degenerative changes and a chest x-ray with no abnormalities. We did some labs which returned within normal limits. We gave you some ibuprofen and had you evaluated by our physical therapist and at this time you areto go home with a walker. Please use your walker whenever as needed. Please continue to take ibuprofen (600mg) and tylenol, alternating them every 6 to 8 hours as needed for pain. Please continue to monitor your symptoms over the next few days and return for any worsening symptoms or any fevers, worsening swelling, worsening shortness of breath, chest pain or any additional concerns. Please otherwise continue to follow-up with your primary care provider. It was a pleasure treating you! documented in this encounter Medications at Time of Discharge amLODIPine (NORVASC) 10 MG tablet Take 1 tablet by mouth every morning. 11/23/2023 ARIPiprazole (ABILIFY) 2 MG tablet Take 1 tablet by mouth every morning. 11/29/2023 atorvastatin (LIPITOR) 40 MG tablet Take 1 tablet by mouth every morning. 09/19/2023 bromfenac (BROMDAY) 0.09 % ophthalmic solution Place 1 drop into the left eye 2 (two) times a day. 11/17/2023 dorzolamide-sofy loL (COSOPT) 22.3-6.8 mg/mL ophthalmic solution INSTILL ONE DROP TO EACH EYE TWICE A DAY 09/13/2023 lamoTRIgine (LAMICTAL) 200 MG IMMEDIATE release tablet take 1 tablet by mouth everyday at bedtime 09/19/2023 levothyroxine (SYNTHROID, LEVOTHROID) 100 MCG tablet Take 1 tablet by mouth every morning. 11/20/2023 losartan (COZAAR) 100 MG tablet Take 1 tablet by mouth every morning. 09/08/2023 losartan-hydroCH LOROthiazide (HYZAAR) 100-12.5 mg per tablet Take 1 tablet by mouth every morning. 11/11/2023 metFORMIN (GLUCOPHAGE-XR) 500 MG 24 hr tablet TAKE 1 TABLET BY MOUTH TWICE DAILY WITH FOOD 90 DAYS 09/11/2023 omeprazole (PRILOSEC) 20 MG capsule TAKE 1 CAPSULE (20 MG) ORALLY DAILY 11/11/2023 triamcinolone acetonide 0.1 % cream Apply topically 2 (two) times a day. 11/08/2023 documented as of this encounter Progress Notes * Felipa Lees H, PT - 07/08/2025 4:53 PM EST Physical Therapy Inpatient Physical Therapy Evaluation Patient Name: Belen Ram Date of : 1950 Patient Information from the H&P: 07/08/25 1630 PT Last Visit PT Received On 07/08/25 Referral Minutes 30 Precautions/Safety Infection Control [place] Weight Bearing WBAT Activity and Positioning Up with walker Environment Context Type of Home Apartment Home Layout One level Social Context Lives With Self/alone Receives Help From Adult child(caitlyn) Social Context Comment Continues to drive Pain Assessment Pain Assessment 0-10 Pain Score 8 Pain Orientation Right Pain Location Knee Arousal/Attention/Communication/Cognition Arousal/Attention/Communication/Cognition Intact Strength/PROM/AROM Strength/AROM/PROM Comment Limited right knee ROM due to pain however every other extremity is WNL [facility] Highest Level of Mobility [facility] Highest Level of Mobility Score 8 Barrier to Today's Mobilization Goal No Barrier/Achieved Mobility Goal [facility] Mobility Short Form Turning from your back to your side while in a flat bed without using bedrails? 4 Moving from lying on your back to sitting on the side of a flat bed without using bedrails? 4 Moving to and from a bed to a chair (including a wheelchair)? 4 Standing up from a chair using your arms (e.g. wheelchair, or bedside chair)? 4 Walking in hospital room? 4 Bed Mobility Bed Mobility Supine to sit;Sit to supine Supine to Sit Supine to Sit Level of Assistance Modified independent Sit to Supine Sit to Supine Level of Assistance Modified independent Transfer Mobility Transfer Mobility Task Sit to stand;Stand to sit Sit to Stand Sit to Stand Level of Assistance Modified independent Stand to Sit Stand to Sit Level of Assistance Modified independent Ambulation Ambulation Assistance Modified independent Device Used During Ambulation Walker - rolling Number of Staff Assisting with Ambulation 1 Ambulation Distance (Comments) 250'x1 Ambulation Clinical Observation Able to manage well with walker and no loss of balance Recommendations PT Discharge Recommendation Outpatient PT PT Discharge Comment Pt is safe to return home; recommend outpt PT to manage LE symptoms Assessment for Rehab Service Comment Pt is pleasant 74 y/o female who presents to ED due to right knee pain. She is mobilizing limited due to pain however she is able to ambulate well with a walker. Recommend obtaining a walker for home use. Provided instructions on how to measure/adjust the walkerappropriately, suggested outpatient PT to help manage symptoms and recommended use of Voltaren or another topical arthritis cream. These recommendations reviewed with nursing. Pt clear to return to home to one level apartment. PT Evaluation PT Treatments PT Eval Low Complexity 39691 $Initial PT Evaluation Low Complexity 35085 30 Past Medical History from the H&P: No past medical history on file. PT Plan of Care Plan of Care by Felipa Lees PT at 07/08/2025 4:52 PM Version 1 of 1 Problem: Patient/Care Plan Partner Education - Functional Mobility Condition Goal: PT - Demonstrates/verbalizes understanding of education topic regarding condition and treatment Description: Safe use of walker and proper height adjustment; role of outpatient PT Outcome: Completed *The patient???s progress will be assessed at each session. The frequency may be increased or tapered as treatment progresses based on the therapist???s judgment of factors including but not limited to; co morbidities, tissue healing, patient/caregiver independent self management, ability to participate in/receive therapy due to medical stability and/or competing care priorities. Felipa Lees, [place] [id number] documented in this encounter ED Notes * Latasha Beckford RN - 07/08/2025 5:09 PM EST ED Discharge Nursing Note Pt alert, calm in no acute distress, advised to follow up with pcp. * Latasha Beckford, RN - 07/08/2025 4:52 PM EST ED Nursing Progress Note Pt had PT eval, tolerated well, expected to be dc and get a walker with help of son. Pt alert, calm, eating dinner and in nad. * Latasha Beckford RN - 07/08/2025 4:28 PM EST ED Nursing Progress Note PT at bedside * Latasha Beckford RN - 07/08/2025 3:47 PM EST ED Nursing Progress Note Provider at bedside * Latasha Beckford RN - 07/08/2025 2:56 PM EST ED Nursing Progress Note Pt awaiting reeval by provider, states va helped. Pt alert, calm in nad * Latasha Beckford RN - 07/08/2025 12:31 PM EST ED Nursing Progress Note Pt back from U/S alert, calm in nad, awaiting results * Latasha Beckford RN - 07/08/2025 11:58 AM EST ED Nursing Progress Note Pt here for right leg, knee pain, denies any trauma or fall. To u/s now, alert calm in nad * Latasha Beckford RN - 07/08/2025 11:46 AM EST Pt here for right knee, leg pain, difficulty walking now, can't bear wt. Denies any trauma. Pt states leg even hurts when elevated. Took tylenol last night and this am, no relief. No hx of dvts. +pedal pulse, extrem pwd * Nisa Vega MD - 07/08/2025 11:20 AM EST Chief Complaint Chief Complaint Patient presents with Leg Pain Knee Pain History of Present Illness The patient, Belen Ram,is a 74 y.o. female who presents for evaluation of Leg Pain and Knee Pain Patient is a 74-year-old female presenting to the emergency department for concerns of leg pain andknee pain. The patient stated that about 8 months ago, she had sustained a fall and since then has been having worsening knee pain however the patient noted today, she had some difficulty with bearing weight especially on her right knee. The patient stated that she has been trying to offset the pain of her right knee with more pressure on her left leg however noted that she was unable to bear weight. The patient denies any recent fevers, any recent falls, no previous hip procedures. The patientstates that her legs are slightly swollen but her pain is more the discomfort. The patient also stat es that she has been having some shortness of breath which the son who is at bedside stated was more prevalent over the past couple of weeks. Patient stated that she does have a previous diagnosis ofCHF however she was scheduled to have a follow-up with her primary care provider in about a week concerning further management and is not on any diuretics. Unless otherwise specified, I have reviewed and agree with the triage and nursing notes. ROS A ten point review of systems was negative except what was noted in the HPI. Review of Systems Constitutional: Negative for activity change, appetite change, fatigue and fever. Respiratory: Positive for shortness of breath. Negative for cough and wheezing. Cardiovascular: Positive for leg swelling. Negative for chest pain and palpitations. Gastrointestinal: Negative for abdominal distention, abdominal pain, constipation, diarrhea, nauseaand vomiting. Genitourinary: Negative for decreased urine volume, dysuria, flank pain and urgency. Musculoskeletal: Positive for arthralgias and joint swelling. Negative for gait problem. Skin: Negative for color change, pallor and wound. Neurological: Negative for dizziness, tremors, syncope, light-headedness, numbness and headaches. All other systems reviewed and are negative. Past Medical History No past medical history on file. Past Surgical History No past surgical history on file. Home Medications Prior to Admission medications Medication Sig amLODIPine (NORVASC) 10 MG tablet 1 tablet, Oral, Every morning ARIPiprazole (ABILIFY) 2 MG tablet 1 tablet, Oral, Every morning atorvastatin (LIPITOR) 40 MG tablet 1 tablet, Oral, Every morning bromfenac (BROMDAY) 0.09 % ophthalmic solution 1 drop, Left Eye, 2 times daily dorzolamide-timoloL (COSOPT) 22.3-6.8 mg/mL ophthalmic solution INSTILL ONE DROP TO EACH EYE TWICE A DAY lamoTRIgine (LAMICTAL) 200 MG IMMEDIATE release tablet take 1 tablet by mouth everyday at bedtime levothyroxine (SYNTHROID, LEVOTHROID) 100 MCG tablet 1 tablet, Oral, Every morning losartan (COZAAR) 100 MG tablet 1 tablet, Every morning Patient not taking: Reported on 12/06/2023 losartan-hydroCHLOROthiazide (HYZAAR) 100-12.5 mg per tablet 1 tablet, Oral, Every morning metFORMIN (GLUCOPHAGE-XR) 500 MG 24 hr tablet TAKE 1 TABLET BY MOUTH TWICE DAILY WITH FOOD 90 DAYS omeprazole (PRILOSEC) 20 MG capsule TAKE 1 CAPSULE (20 MG) ORALLY DAILY triamcinolone acetonide 0.1 % cream 2 times daily Patient not taking: Reported on 12/06/2023 Allergies Allergies Allergen Reactions Betamethasone, Augmented Rash Social and Family History Social History Tobacco Use Smoking status: Former Types: Cigarettes Smokeless tobacco: Never Substance Use Topics Alcohol use: Not on file Social History Substance and Sexual Activity Drug Use Not on file No family history on file. Physical Exam Vital Signs: ED Triage Vitals Encounter Vitals Group BP 07/08/25 1147 (!) 150/93 Girls Systolic BP Percentile -- Girls Diastolic BP Percentile -- Boys Systolic BP Percentile -- Boys Diastolic BP Percentile -- Heart Rate 07/08/25 1147 84 Respiratory Rate 07/08/25 1147 14 Temperature 07/08/25 1147 37.1 ??C (98.8 ??F) Temp src -- SpO2 07/08/25 1147 98 % Weight 07/08/25 1145 200 lb Height 07/08/25 1145 5' 2 Head Circumference -- Peak Flow -- Pain Score -- Pain Loc -- Pain Education -- Exclude from Growth Chart -- Physical Exam Vitals and nursing note reviewed. Constitutional: General: She is not in acute distress. Appearance: Normal appearance. She is normal weight. She is not ill-appearing or toxic-appearing. HENT: Head: Normocephalic. Mouth/Throat: Mouth: Mucous membranes are moist. Pharynx: Oropharynx is clear. Eyes: Extraocular Movements: Extraocular movements intact. Conjunctiva/sclera: Conjunctivae normal. Pupils: Pupils are equal, round, and reactive to light. Cardiovascular: Rate and Rhythm: Normal rate and regular rhythm. Pulses: Normal pulses. Heart sounds: Normal heart sounds. No murmur heard. Pulmonary: Effort: Pulmonary effort is normal. No respiratory distress. Breath sounds: Normal breath sounds. No wheezing. Abdominal: General: There is no distension. Palpations: Abdomen is soft. Tenderness: There is no abdominal tenderness. There is no guarding or rebound. Musculoskeletal: General: Swelling and tenderness present. No deformity. Normal range of motion. Cervical back: Normal range of motion. No rigidity or tenderness. Comments: Right knee tenderness with some localized swelling without any erythema. Slight edema bilaterally. Skin: General: Skin is warm and dry. Capillary Refill: Capillary refill takes less than 2 seconds. Coloration: Skin is not pale. Findings: No erythema or rash. Neurological: General: No focal deficit present. Mental Status: She is alert and oriented to person, place, and time. Mental status is at baseline. Cranial Nerves: No cranial nerve deficit. Sensory: No sensory deficit. Motor: No weakness. Laboratory Testing No results found for this visit on 07/08/25. Radiology Testing US Lower Extremity Veins Duplex (Right) (Results Pending) MDM Assessment and Plan: Patient is a 74-year-old female presenting to the emergency department for right knee pain, leg swelling and shortness of breath. Upon arrival, the patient is afebrile, not tachycardic or tachypneic,saturating well on room air. Physical examination showed slight swelling around the right knee withminimal pitting edema of the lower extremities bilaterally. Patient's range of motion is intact however painful. The patient has good pulses, good cap refill, and sensation and motor intact. Will plan for basic labs, proBNP, chest x-ray and x-ray of the knee. Will also plan for duplex of the right lower extremity with reassessment. 4:58 PM Patient's labs were without any leukocytosis or significant anemia. proBNP negative. Patient's chest x-ray without any acute abnormalities, lower extremity of the duplex does not show any evidence ofdeep vein thrombosis and no Ernandez's cyst or edema. Patient's x-ray of the right knee does show severe degenerative changes with mild degenerative changes in the medial and lateral compartments with trace joint effusion. Patient was given a dose of ibuprofen and evaluated by physical therapy. Physical therapy deemed the patient safe to the discharged home with a walker to use as needed and for comfort. The patient has plans to follow-up with her primary care provider this week. The patient was advised to use Tylenol or Motrin as needed, given strict return precautions and advised PCP follow-up. Category 1: Tests, Studies or Independent Historians: Prior Data Reviewed: Prior notes reviewed. Category 2 and 3: Independent Interpretation of Tests, Consideration of Tests, or External Discussion of Results: Labs: Laboratory studies were interpreted. Radiology: Radiology studies were independently interpreted. Risks of Complications, Morbidity, or Mortality: Risks: Risks and benefits of admission to the hospital discussed with patient. Necessity for prescription medication was discussed. Clinical Impressions as of 07/08/25 1657 Right leg pain Right knee pain Clinical Impression Diagnosis Description Comment Final diagnosis Right leg pain Right leg pain -- Disposition: Home Nisa Vega MD 07/08/25 1737 documented in this encounter Miscellaneous Notes * Plan of Care - Felipa Lees PT - 07/08/2025 4:52 PM EST Problem: Patient/Care Plan Partner Education - Functional Mobility Condition Goal: PT - Demonstrates/verbalizes understanding of education topic regarding condition and treatment Description: Safe use of walker and proper height adjustment; role of outpatient PT Outcome: Completed documented in this encounter Plan of Treatment Not on file documented as of this encounter Procedures Procedure Name Priority Date/Time Associated Diagnosis Comments US BEDSIDE Routine 07/08/2025 3:27 PM EST CBC AND DIFFERENTIAL STAT 07/08/2025 1:11 PM EST CBC AND DIFFERENTIAL STAT 07/08/2025 1:11 PM EST NT-PROBNP STAT 07/08/2025 1:11 PM EST MAGNESIUM STAT 07/08/2025 1:11 PM EST BASIC METABOLIC PANEL (BMP) STAT 07/08/2025 1:11 PM EST XR CHEST PA AND LATERAL 2 VIEWS Routine 07/08/2025 1:08 PM EST XR KNEE 4 OR MORE VIEWS (RIGHT) Routine 07/08/2025 1:08 PM EST US LOWER EXTREMITY VEINS DUPLEX (RIGHT) Routine 07/08/2025 12:07 PM EST Right leg pain documented in this encounter Results * Bedside Ultrasound (07/08/2025 3:27 PM EST) us Nisa Vega MD IMG POINT OF CARE EXAMS Maureen l Result * (ABNORMAL) CBC and Differential (07/08/2025 1:11 PM EST) WBC 8.24 4.00 - 11.00 K/uL 07/08/2025 1:16 PM [facility] RBC 4.44 4.00 - 5.20 M/uL 07/08/2025 1:16 PM [facility] Hemoglobin 14.1 12.0 - 16.0 g/dL 07/08/2025 1:16 PM [facility] Hematocrit 42.2 36.0 - 46.0 % 07/08/2025 1:16 PM [facility] MCV 95.0 80.0 - 100.0 fL 07/08/2025 1:16 PM [facility] MCH 31.8(H) 27.0 - 31.0 pg 07/08/2025 1:16 PM [facility] MCHC 33.4 32.0 - 36.0 g/dL 07/08/2025 1:16 PM [facility] MPV 9.2 8.4 - 12.0 fL 07/08/2025 1:16 PM [facility] RDW-CV 13.9 11.5 - 14.5 % 07/08/2025 1:16 PM [facility] PLT 303 150 - 450 K/uL 07/08/2025 1:16 PM [facility] Neutrophils 68.5 % 07/08/2025 1:16 PM [facility] Lymphocytes 17.0 % 07/08/2025 1:16 PM [facility] Monocytes 12.3 % 07/08/2025 1:16 PM [facility] Eosinophils 1.2 % 07/08/2025 1:16 PM [facility] Basophils 0.6 % 07/08/2025 1:16 PM [facility] Imm Grans 0.4 % 07/08/2025 1:16 PM [facility] NRBC 0.0 <=0.0 /100 WBCs 07/08/2025 1:16 PM [facility] Absolute Neutrophils 5.65 1.92 - 7.60 K/uL 07/08/2025 1:16 PM [facility] Absolute Lymphocytes 1.40 0.72 - 4.10 K/uL 07/08/2025 1:16 PM [facility] Absolute Monocytes 1.01 0.16 - 1.10 K/uL 07/08/2025 1:16 PM [facility] Absolute Eosinophils 0.10 0.00 - 0.50 K/uL 07/08/2025 1:16 PM [facility] Absolute Basophils 0.05 0.00 - 0.15 K/uL 07/08/2025 1:16 PM [facility] Absolute Imm Grans 0.03 0.00 - 0.09 K/uL 07/08/2025 1:16 PM [facility] Absolute NRBC 0.00 <=0.00 K cells/uL 07/08/2025 1:16 PM [facility] Absolute Neutrophils 5.65 1.92 - 7.60 K/uL 07/08/2025 1:16 PM [facility] Comment:Automated cell count . Manual ANC may differ if performed. Diff Type Auto 07/08/2025 1:16 PM EST [facility] Blood (Blood) Venipuncture / Unknown 07/08/2025 1:11 PM EST 07/08/2025 1:13 PM EST Nisa Vega MD LAB BLOOD BKR ORDERABLES Fin al Result Performing Organization Address [facility] Co de Phone Number [address] [address] * NT-proBNP (07/08/2025 1:11 PM EST) NT-ProBNP 77 0 - 900 pg/mL 07/08/2025 1:41 PM EST [facility] Comment: Age <50 years: 0-450 pg/ml Age 50-75 years: 0-900 pg/ml Age >75 years: 0-1800 pg/ml A NT-proBNP <300 pg/ml effectively rules out acute congestive heart failure, with 99% negative predictive value. NT-proBNP cutoffs were developed for the diagnosis of heart failure. Marked elevations in NT-proBNP levels may be observed in states other than left ventricular congestive heart failure. Falsely low NT-proBNP in congestive heart failure patients may be observed with increasing body-mass index. Blood (Blood) Venipuncture / Unknown 07/08/2025 1:11 PM EST 07/08/2025 1:13 PM EST Nisa Vega MD LAB BLOOD BKR ORDERABLES Fin al Result Performing Organization Address [facility] Co de Phone Number [address] [address] * Magnesium (07/08/2025 1:11 PM EST) Magnesium 2.3 1.7 - 2.6 mg/dL 07/08/2025 1:41 PM EST [facility] Blood (Blood) Venipuncture / Unknown 07/08/2025 1:11 PM EST 07/08/2025 1:13 PM EST us Nisa Vega MD LAB BLOOD BKR ORDERABLES Fin al Result Performing Organization Address City/[facility]/ZIP Co de Phone Number [address] [address] * (ABNORMAL) Basic Metabolic Panel (BMP) (07/08/2025 1:11 PM EST) Sodium 140 136 - 145 mmol/L 07/08/2025 1:41 PM [facility] Potassium 3.9 3.4 - 5.1 mmol/L 07/08/2025 1:41 PM [facility] Chloride 101 98 - 107 mmol/L 07/08/2025 1:41 PM [facility] CO2 25 20 - 31 mmol/L 07/08/2025 1:41 PM [facility] Anion Gap 14 3 - 17 mmol/L 07/08/2025 1:41 PM [facility] BUN 22 6 - 23 mg/dL 07/08/2025 1:41 PM [facility] Creatinine 1.00 0.50 - 1.00 mg/dL 07/08/2025 1:41 PM [facility] eGFR 59(L) >59 mL/min/1.7 3m2 07/08/2025 1:41 PM [facility] Comment:Estimated glomerular filtration rate calculated using the CKD-EPI refit equation. Glucose 94 70 - 99 mg/dL 07/08/2025 1:41 PM [facility] Calcium 10.8(H) 8.5 - 10.5 mg/dL 07/08/2025 1:41 PM [facility] Blood (Blood) Venipuncture / Unknown 07/08/2025 1:11 PM EST 07/08/2025 1:13 PM EST us Nisa Vega MD LAB BLOOD BKR ORDERABLES Fin al Result Performing Organization Address City/[facility]/ZIP Co de Phone Number [address] [address] * XR CHEST PA AND LATERAL 2 VIEWS (07/08/2025 1:08 PM EST) Anatomical Region Laterality Modality Chest Computed Radiogr aphy 07/08/2025 2:30 PM EST Impressions 07/08/2025 2:32 PM EST No acute abnormality. Narrative 07/08/2025 2:32 PM EST XR CHEST PA AND LATERAL 2 VIEWS Referring clinician's provided indication for this examination in [facility]: Dyspnea (Shortness of Breath) COMPARISON: None. FINDINGS: Devices/Tubes/Lines: None. Lungs: No focal consolidation or pulmonary edema. Pleura: No pleural effusion or pneumothorax. Heart/Mediastinum: Normal cardiac silhouette. Mild focal thickening along the right paratracheal stripe, which may represent vasculature. Bones/Soft Tissues: No acute osseous abnormality. Mild multilevel degenerative changes of the thoracic spine. Procedure Note Calvin Reyes MD - 07/08/2025 XR CHEST PA AND LATERAL 2 VIEWS Referring clinician's provided indication for this examination in [facility]:Dyspnea (Shortness of Breath) COMPARISON: None. FINDINGS: Devices/Tubes/Lines: None. Lungs: No focal consolidation or pulmonary edema. Pleura: No pleural effusion or pneumothorax. Heart/Mediastinum: Normal cardiac silhouette. Mild focal thickening alongthe right paratracheal stripe, which may represent vasculature. Bones/Soft Tissues: No acute osseous abnormality. Mild multileveldegenerative changes of the thoracic spine. IMPRESSION: No acute abnormality. Nisa Vega MD IMG XR CHEST Final Result * XR KNEE 4 OR MORE VIEWS (RIGHT) (07/08/2025 1:08 PM EST) Anatomical Region Laterality Modality Knee Right Computed Radiogr aphy 07/08/2025 2:28 PM EST Impressions 07/08/2025 2:29 PM EST No acute fracture or dislocation. Severe degenerative changes of the patellofemoral compartment and mild degenerative changes of the medial and lateral compartments. Trace joint effusion. Quadriceps enthesophyte. Mild anterior soft tissue stranding. Narrative 07/08/2025 2:29 PM EST XR KNEE 4 OR MORE VIEWS (RIGHT) Referring clinician's provided indication for this examination in [facility]: Pain; S/P Fall COMPARISON: None. Procedure Note Calvin Reyes MD - 07/08/2025 XR KNEE 4 OR MORE VIEWS (RIGHT) Referring clinician's provided indication for this examination in [facility]:Pain; S/P Fall COMPARISON: None. IMPRESSION: No acute fracture or dislocation. Severe degenerative changes of thepatellofemoral compartment and mild degenerative changes of the medial andlateral compartments. Trace joint effusion. Quadriceps enthesophyte. Mildanterior soft tissue stranding. Nisa Vega MD IMG XR LOWER EXTREMITY Final Result * US Lower Extremity Veins Duplex (Right) (07/08/2025 12:07 PM EST) Anatomical Region Laterality Modality Hip Right, Thigh Right, Knee Right, Leg Right, Ankle Right, Foot Right Ultrasound 07/08/2025 1:20 PM EST Impressions 07/08/2025 1:22 PM EST No deep venous thrombosis in the right lower extremity. Narrative 07/08/2025 1:22 PM EST US LOWER EXTREMITY VEINS DUPLEX (RIGHT) Referring clinician's provided indication for this examination in [facility]: Right Leg Pain TECHNIQUE: Right lower extremity venous ultrasound with color and spectral Doppler. COMPARISON: None. XR KNEE 4 OR MORE VIEWS (RIGHT) 13:04:23.000 FINDINGS: Exam Quality: Technically adequate exam demonstrates: Right lower extremity Common femoral vein: Normal compressibility and flow characteristics. Great saphenous vein: Normal compressibility and flow characteristics at the saphenofemoral junction. Femoral vein: Normal compressibility. Proximal profunda femoral vein: Normal compressibility. Popliteal vein: Normal compressibility and flow characteristics. Gastrocnemius: Normal compressibility. Posterior tibial vein: Normal compressibility. Peroneal vein: Normal compressibility. No edema. No Ernandez's cyst. Left common femoral vein: Normal compressibility and flow characteristics. Procedure Note Calvin Reyes MD - 07/08/2025 US LOWER EXTREMITY VEINS DUPLEX (RIGHT) Referring clinician's provided indication for this examination in Epic:Right Leg Pain TECHNIQUE: Right lower extremity venous ultrasound with color and spectralDoppler. COMPARISON: None. XR KNEE 4 OR MORE VIEWS (RIGHT) :04:23.000 FINDINGS: Exam Quality: Technically adequate exam demonstrates: Right lower extremity Common femoral vein: Normal compressibility and flow characteristics. Great saphenous vein: Normal compressibility and flow characteristics atthe saphenofemoral junction. Femoral vein: Normal compressibility. Proximal profunda femoral vein: Normal compressibility. Popliteal vein: Normal compressibility and flow characteristics. Gastrocnemius: Normal compressibility. Posterior tibial vein: Normal compressibility. Peroneal vein: Normal compressibility. No edema. No Ernandez's cyst. Left common femoral vein: Normal compressibility and flowcharacteristics. IMPRESSION: No deep venous thrombosis in the right lower extremity. us Yeimi Rico PA-C CV US VASCULAR Final Resul t documented in this encounter Visit Diagnoses Diagnosis Right leg pain- Primary Pain in soft tissues of limb Right knee pain Pain in joint, lower leg documented in this encounter Administered Medications Inactive Administered Medications - up to 3 most recent administrations Medication Order MAR Action Action Date Dose Rate Site ibuprofen (ADVIL,MOTRIN) tablet 600 mg 600 mg, Oral, Once, On 07/08/25 at 1330, For 1 dose Given 07/08/2025 1:26 PM EST 600 mg documented in this encounter Active and Recently Administered Medications Times are shown in EST. 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 It is not the complete legal health record.[facility]
--- OUTSIDE RECORDS SUMMARY | 2025-07-08 15:30 | XMS_ITS | Encounter Summary ---
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 Role Phone Pcp, Unknown Primary Care Provider Unavailabl e Encounter Details Date Type Department Care Team (Late st Contact Info) Description 07/08/2025 3:30 PM EST Ancillary Procedure [address] [address] Nisa Vega MD [address] [place] [id number] [email or web address] Arrived Social History Tobacco Use Types Packs/Day Years [...] on file documented as of this encounter Functional Status * Calculated C-SSRS Risk Score (Lifetime/Recent) Answer Date of Assessment Author No Risk Indicated 07/08/2025 11:45 AM Latasha Butler RN * [place] Suicide Severity Rating Scale (Screener/Recent Self-Report) Question Answer Date of Assessment Author 1. Wish to be (Past 1 Month) No 025 11:45 AM Latasha Butler RN 2. Non-Specific Active Suici kuldeep Thoughts (Past 1 Month) No 07/08/2025 11:45 AM Latasha Butler RN 6. 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 It is not the complete legal health record.[facility]
[2025-07-10 11:33] LABS: Hematocrit 39.7 % (37.0-47.0); Hemoglobin 13.3 g/dl (12.0-16.0); Mean Corpuscular HGB Conc 33.5 g/dl (31.0-35.0); Mean Corpuscular Hemoglobin 31.5 pg (27.0-33.0); Mean Corpuscular Volume 94.1 fL (80.0-98.0); NRBC Abs Auto 0.000 X10*3/uL (0.0-0.012); NRBC Pct Auto 0.0 /100WBC (0.0-0.2); Platelet Count 294 X10*3/uL (160-400); Red Blood Count 4.22 X10*6/uL (4.20-5.50); White Blood Count 5.3 X10*3/uL (4.8-10.8)
--- OUTSIDE RECORDS SUMMARY | 2025-07-10 11:47 | XMS_ITS | Clinical Summary ---
Author Organization [facility] Address [address] [facility] [address] [place] [address] Phone Care Team Providers Care Discharge Coordinator Name Role Phone Pcp, Unknown Primary Care Provider Unavailabl e Allergies Active Allergy Reactions Criticality Noted Date [...] TABLET BY MOUTH TWICE DAILY WITH FOOD DAYS 4 Active omeprazole (PRILOSEC) 20 MG capsule TAKE 1 CAPSULE (20 MG) ORALLY DAILY 4 Active triamcinolone acetonide 0.1 % cream Apply topically 2 (two) times a day. 4 Active Active Problems No known active problems Encounters Date Type Department Care Team Description 07/08/2025 3:30 PM EST Ancillary Procedure [facility] [address] [place] [address] Nisa Vega MD Arrived 07/08/2025 11:56 AM EST - 07/08/2025 5:11 PM EST Emergency [facility] [address] [place] [address] Nisa Vega MD Discharge Disposition: Home or Self Care from Last 3 Months Social History Tobacco Use Types Packs/Day Years [...] AM EST Sexual Orientation Not on file Last Filed [...] Mass Index 36.58 07/08/2025 11:45 AM EST Plan of Treatment Health Maintenance Due Date Last Done Comments Adult Td,Tdap Booster 1950 LIPID PANEL 1950 TSH LEVEL 1950 DEPRESSION SCREENING 1962 [...] 11/28/2015 INFLUENZA VACCINE (#1) 2025 COVID-19 VACCINE ( - 2024-2 6 season) 2025 RSV VACCINE (1 - 1-dose 75+ series) 2025 CREATININE LEVEL 07/08/2026 07/08/2025 POTASSIUM LEVEL 07/08/2026 07/08/2025 HEPATITIS A VACCINES Aged Out No long [...] this topic Medical Devices Not on file Procedures Procedure Name Priority Date/Time Associated Diagnosis Comments US BEDSIDE Routine 07/08/2025 3:27 PM EST CBC AND DIFFERENTIAL STAT 07/08/2025 1:11 PM EST NT-PROBNP STAT 07/08/2025 1:11 PM EST MAGNESIUM STAT 07/08/2025 1:11 PM EST BASIC METABOLIC PANEL (BMP) STAT 07/08/2025 1:11 PM EST CBC AND DIFFERENTIAL STAT 07/08/2025 1:11 PM EST XR CHEST PA AND LATERAL 2 VIEWS Routine 07/08/2025 1:08 PM EST XR KNEE 4 OR MORE VIEWS (RIGHT) Routine 07/08/2025 1:08 PM EST US LOWER EXTREMITY VEINS DUPLEX (RIGHT) Routine 07/08/2025 12:07 PM EST Right leg pain from Last 3 Months Results * Bedside Ultrasound (07/08/2025 3:27 PM EST) us Nisa Vega MD IMG POINT OF CARE EXAMS Maureen l Result * (ABNORMAL) CBC and Differential (07/08/2025 1:11 PM EST) WBC 8.24 4.00 - 11.00 K/uL 07/08/2025 1:16 PM [facility] RBC 4.44 4.00 - 5.20 M/uL 07/08/2025 1:16 PM [facility] Hemoglobin 14.1 12.0 - 16.0 g/dL 07/08/2025 1:16 PM [facility] Hematocrit 42.2 36.0 - 46.0 % 07/08/2025 1:16 PM [facility] MCV 95.0 80.0 - 100.0 fL 07/08/2025 1:16 PM [facility] MCH 31.8(H) 27.0 - 31.0 pg 07/08/2025 1:16 PM [facility] MCHC 33.4 32.0 - 36.0 g/dL 07/08/2025 1:16 PM [facility] MPV 9.2 8.4 - 12.0 fL 07/08/2025 1:16 PM [facility] RDW-CV 13.9 11.5 - 14.5 % 07/08/2025 1:16 PM [facility] PLT 303 150 - 450 K/uL 07/08/2025 1:16 PM [facility] Neutrophils 68.5 % 07/08/2025 1:16 PM [facility] Lymphocytes 17.0 % 07/08/2025 1:16 PM [facility] Monocytes 12.3 % 07/08/2025 1:16 PM [facility] Eosinophils 1.2 % 07/08/2025 1:16 PM [facility] Basophils 0.6 % 07/08/2025 1:16 PM [facility] Imm Grans 0.4 % 07/08/2025 1:16 PM [facility] NRBC 0.0 <=0.0 /100 WBCs 07/08/2025 1:16 PM [facility] Absolute Neutrophils 5.65 1.92 - 7.60 K/uL 07/08/2025 1:16 PM [facility] Absolute Lymphocytes 1.40 0.72 - 4.10 K/uL 07/08/2025 1:16 PM [facility] Absolute Monocytes 1.01 0.16 - 1.10 K/uL 07/08/2025 1:16 PM [facility] Absolute Eosinophils 0.10 0.00 - 0.50 K/uL 07/08/2025 1:16 PM [facility] Absolute Basophils 0.05 0.00 - 0.15 K/uL 07/08/2025 1:16 PM [facility] Absolute Imm Grans 0.03 0.00 - 0.09 K/uL 07/08/2025 1:16 PM [facility] Absolute NRBC 0.00 <=0.00 K cells/uL 07/08/2025 1:16 PM [facility] Absolute Neutrophils 5.65 1.92 - 7.60 K/uL 07/08/2025 1:16 PM [facility] Comment:Automated cell count . Manual ANC may differ if performed. Diff Type Auto 07/08/2025 1:16 PM [facility] Blood (Blood) Venipuncture / Unknown 07/08/2025 1:11 PM EST 07/08/2025 1:13 PM EST Nisa Vega MD LAB BLOOD BKR ORDERABLES Fin al Result Performing Organization Address [facility] Co de Phone Number [address] [address] * NT-proBNP (07/08/2025 1:11 PM EST) NT-ProBNP 77 0 - 900 pg/mL 07/08/2025 1:41 PM [facility] Comment: Age <50 years: 0-450 pg/ml Age [...] ORDERABLES Fin al Result Performing Organization Address City/[facility]/ZIP Co de Phone Number [address] [address] * Magnesium (07/08/2025 1:11 PM EST) Magnesium 2.3 1.7 - 2.6 mg/dL 07/08/2025 1:41 PM [facility] Blood (Blood) Venipuncture / Unknown 07/08/2025 1:11 PM EST 07/08/2025 1:13 PM EST us Nisa Vega MD LAB BLOOD BKR ORDERABLES Fin al Result Performing Organization Address City/[facility]/ZIP Co de Phone Number [facility] [address] [place] [address] * (ABNORMAL) Basic Metabolic Panel (BMP) (07/08/2025 1:11 PM EST) Pathologist [facility] Sodium 140 136 - 145 mmol/L 07/08/2025 1:41 PM [facility] Potassium 3.9 3.4 - 5.1 mmol/L 07/08/2025 1:41 PM [facility] Chloride 101 98 - 107 mmol/L 07/08/2025 1:41 PM [facility] CO2 25 20 - 31 mmol/L 07/08/2025 1:41 PM [facility] Anion Gap 14 3 - 17 mmol/L 07/08/2025 1:41 PM [facility] BUN 22 6 - 23 mg/dL 07/08/2025 1:41 PM [facility] Creatinine 1.00 0.50 - 1.00 mg/dL 07/08/2025 1:41 PM [facility] eGFR 59(L) >59 mL/min/1.7 3m2 07/08/2025 1:41 PM [facility] Comment:Estimated glomerular filtration rate calculated using the CKD-EPI refit equation. Glucose 94 70 - 99 mg/dL 07/08/2025 1:41 PM [facility] Calcium 10.8(H) 8.5 - 10.5 mg/dL 07/08/2025 1:41 PM [facility] Blood (Blood) Venipuncture / Unknown 07/08/2025 1:11 PM EST 07/08/2025 1:13 PM EST us Nisa Vega MD LAB BLOOD BKR ORDERABLES Fin al Result [address] [address] * XR CHEST PA AND LATERAL 2 VIEWS (07/08/2025 1:08 PM EST) Anatomical Region Laterality Modality Chest Computed Radiogr aphy 07/08/2025 2:30 PM EST Impressions 07/08/2025 2:32 PM EST No acute abnormality. Narrative 07/08/2025 2:32 PM EST XR CHEST PA AND LATERAL 2 VIEWS Referring clinician's provided indication for this examination in Epic: Dyspnea (Shortness of Breath) COMPARISON: None. FINDINGS: [...] clinician's provided indication for this examination in Epic:Dyspnea (Shortness of Breath) COMPARISON: None. FINDINGS: Devices/Tubes/Lines: None. Lungs: No focal consolidation or pulmonary edema. Pleura: No pleural effusion or pneumothorax. Heart/Mediastinum: Normal cardiac silhouette. Mild focal thickening alongthe right paratracheal stripe, which may represent vasculature. Bones/Soft Tissues: No acute osseous abnormality. Mild multileveldegenerative changes of the thoracic spine. IMPRESSION: No acute abnormality. us Nisa Vega MD IMG XR CHEST Final [...] clinician's provided indication for this examination in [facility]: Pain; S/P Fall COMPARISON: None. Procedure Note Calvin Reyes MD - 07/08/2025 XR KNEE 4 OR MORE VIEWS (RIGHT) Referring clinician's provided indication for this examination in [facility]:Pain; S/P Fall COMPARISON: None. IMPRESSION: No acute [...] clinician's provided indication for this examination in [facility]: Right Leg Pain TECHNIQUE: Right lower extremity [...] venous thrombosis in the right lower extremity. Yeimi Rico PA-C CV VASCULAR Final Resul t from Last 3 Months Insurance MEDICARE PART A & B GENERIC MEDICARE SUPPLEMENT MEDICARE PART A & B GENERIC MEDICARE SUPPLEMENT MEDICARE PART A & B GENERIC MEDICARE SUPPLEMENT MEDICARE PART A & B GENERIC MEDICARE SUPPLEMENT MEDICARE PART A & B GENERIC MEDICARE SUPPLEMENT MEDICARE PART A & B GENERIC MEDICARE SUPPLEMENT Member Subscriber Plan / Payer ( fective 2023-) Name:Belen Ram Relation to Subscriber:Self Name:Belen Ram Payer ID:Not on file Group ID:Not on file Type:[employer] Address: [place] [id number] Care Teams Discharge Coordinator Relationship Specialty Start Date End Date Pcp, Unknown PCP - General 07/08/25 Additional Source Comments The information contained in this document represents components of the legal health record. It is not the complete legal health record.[facility]
[2025-07-10 12:03] LABS: Iron 117 mcg/dL (30-160); Percent Iron Saturation 34 % (15-50); Total Iron Binding Capacity 345 mcg/dL (228-428); Unsaturated Iron Binding 228 ug/dL
[2025-07-10 12:25] LABS: Folate 17.3 ng/mL (> or = 4.0); Vitamin B12 1001 pg/mL (200-900)
[2025-07-10 15:25] LABS: Microalbum/Creatinine Ratio Ur 38.5 ug/mg cr (<30)
== END 2025-07-10 10:21 | disposition home or self-care (01) ==
LOC: HO.WFDLDS 10:20
PROVIDERS: Visit Provider Nurse Practitioner Family
DX: I12.9 Hypertensive chronic kidney disease with stage 1 through stage 4 chronic kidney disease, or unspecified chronic kidney disease (principal); N18.31 Chronic kidney disease, stage 3a; M81.8 Other osteoporosis without current pathological fracture; R73.03 Prediabetes; E78.5 Hyperlipidemia, unspecified; E03.9 Hypothyroidism, unspecified; E55.9 Vitamin D deficiency, unspecified
CPT/HCPCS: 36415; 82043; 82306; 82570; 82607; 82746; 83540; 84443; 85027

== ENCOUNTER 2025-07-20 14:57 | Outpatient (AMB) | payer MEDICARE, OTHER, SELFPAY ==
--- NOTE | 2025-07-20 15:01 | A.OFFVIS_ITS ---
Intake Vital Signs 07/20/25 15:05 Height 5 ft 2 in Weight 210 lb 6 oz BMI 38.5 BP 124/72 Blood Pressure Location Lt brachial Position Sitting Respiration 12 Pulse 71 Pulse Source Pulse Oximeter Temp 97.5 F Temp Source Oral Pulse Oximetry (%) 99 Oxygen Delivery Method Room Air Intake Visit Reasons: Dec AWV 30 min labs before Intake Note: AWV and review labs. Systems Software Specialist Required: No Allergies amoxicillin (From Augmentin) Allergy (Mild, Verified 07/20/25 15:48) skin rash clavulanic acid (From Augmentin) Allergy (Mild, Verified 07/20/25 15:48) skin rash Medication List - Last Reconciled 07/20/25 by Gill Saldivar, WIRELINE SUPERVISOR- amlodipine 10 mg PO DAILY ammonium lactate 12% 1 appl topical DAILY aripiprazole 2 mg PO DAILY atorvastatin 40 mg PO DAILY brimonidine 0.2% 1 drp ophthalmic (eye) BID bromfenac 0.09% 1 drp ophthalmic (eye) BID calcium carbonate (Calcium 600) 1,200 mg PO DAILY cholecalciferol (vitamin D3) 50 mcg PO DAILY clobetasol 0.05% 1 appl topical BEDTIME PRN 4 weeks clotrimazole 1% 1 appl topical BID 4 weeks denosumab (Prolia) 60 mg subcut [id number] dorzolamide-timolol 22.3-6.8 mg/mL 1 drp ophthalmic (eye) BID duloxetine 30 mg PO DAILY fluconazole 150 mg PO Q3D 2 doses lamotrigine 200 mg PO DAILY levothyroxine 100 mcg PO DAILY lorazepam 0.5 mg PO BID PRN losartan-hydrochlorothiazide 100-12.5 mg 1 tab PO DAILY metformin ER 500 mg PO BID 90 days multivitamin 1 tab PO DAILY nystatin 1 appl topical TID 30 days omeprazole 20 mg PO DAILY triamcinolone acetonide 0.1% 1 appl topical BID Do you need a note to return to daycare/school/sports/work: No HPI HPI Comments History of Present Illness Details 74-year-old female with hyperlipidemia, prediabetes, GERD, sleep apnea with CPAP, CKD 3, obesity, osteoporosis, MDD, bipolar 1 disorder, hypothyroidism, generalized anxiety disorder, hypertension, vitamin-D deficiency, iron deficiency anemia, proteinuria, CHF, glaucoma, stress incont Status post breast surgery 1996, cataract surgery on the left in 2011, cataract surgery in the right 2012 D&C 2005, eye surgery in 1992, inguinal hernia repair 1960 medial nerve decompression 2004, shoulder arthroscopy with rotator cuff repair on the right 2010, surgery for relief of elevated intra-ocular pressure bilat 2005, tonsillectomy, total abdominal hysterectomy with removal of both ovaries and 2005, excision of ganglion cyst of the wrist 1986, glaucoma surgery 2018, SLT L eye 07/2025 Social: Retired family hx: as below Health Maintenance: Mammogram 04/2025 WNL DEXA 11/2023 DIAGNOSIS: Osteoporosis based on the lowest T-score value of -3.6 in the femoral neck applying World Health Organization criteria. Repeat 2025 Vaccines - UTD, Flu 2024 UTD, Pneumococcal UTD Colonoscopy 2022 normal 10 year recall * i dont have this record, per pt report Echo 11/2023 Echo 11/2023 trace mitral , pulmonic and tricuspid valve regurg Normal left ventricular cavity size. There is normal left ventricular wall thickness. The left ventricular systolic function is hyperdynamic. The visually estimated ejection fraction is >70%. Spectral Doppler is indicative of an impaired relaxation filling pattern. AAA screen: NA EKG: done today Specialists: [facility] had appt 04/2025 Atopic derm will start new topical FU PRN Ophthalmology Dr Briggs Rheum first appt 07/11/24 Sleep Med Ortho PRN only Podiatry Dr Hyatt appt x 2 ? bunionectomy, last appt 07/2025 [facility] hold off on bunionectomy for now History of Present Illness The patient is a 74 year old female presenting for an annual Medicare wellness visit. Right Knee Arthritis: - The patient recently visited the [facility] room two weeks ago for severe right knee pain that prevented her from walking. - At the ER, X-rays and an ultrasound we re performed, which ruled out a blood clot. - Following the ER visit, she saw a rheu matologist who performed an arthrocentesis and administered a cortisone injection. - The knee pain has significantly improv ed since the procedure. Intertrigo: - The patient reports a new, painful, an d odorous rash in her right axilla and right groin. - The onset is recent, and the patient h as tried applying Monistat cream today. Diastolic Heart Failure: - The patient inquired about a diagnosis of congestive heart failure noted in her records. - An echocardiogram on 11/30 showed trace mitral, pulmonic, and tricuspid valve regurgitation and an impaired relaxation filling pattern, consistent with diastolic heart failure. - She is asymptomatic, not in an exacerb ation, and is on medications that optimize heart function. Chronic Kidney Disease, Stage 3: - The patient has been diagnosed with st age 3 chronic kidney disease (CKD), which is considered age-related. - Her GFR has been stable above 45, arou nd 60. - Her urine microalbumin/creatinine rati o has been consistently positive, measuring 38.5 recently, similar to last year's result of 38. - She is on medications to optimize kidn ey function. Obstructive Sleep Apnea: - The patient is in the process of obtai karel a CPAP machine. - She has been communicating with the [facility] staff (Sonia/Kathleen) regarding her sleep test results and the order for the CPAP company, [facility], placed on 07/02-07/03. - The primary issue [facility]. Hypothyroidism: - The patient was previously advised to take levothyroxine 200 mcg once weekly to lower her TSH, but she forgot to do so. - Her TSH has slightly decreased from 3. 45 to 3.19. - The thought behind this was increase f atigue and body aches ... her TSH usually is closer to 2 Glaucoma: - The patient has high intraocular press ure. - She underwent a selective laser trabec uloplasty (SLT) on her left eye on Wednesday, 07/16. - She recently started a new eye drop, b rimonidine, for her left eye twice daily, in addition to her other eye drops. Past Medical History - Diastolic heart failure, stable and me dically optimized - Chronic kidney disease, stage 3, age-r elated - Hypertension, well-controlled on medic ation - Obstructive sleep apnea - Arthritis of the right knee - Back pain, has a referral for chiropra ctic care but has not pursued it. - Hypothyroidism - Glaucoma - Osteoporosis, on Prolia - Hospitalization: Visited the ER two we eks ago for right knee pain. Past Surgical History - Arthrocentesis and cortisone injection , right knee (2 weeks ago) - Selective laser trabeculoplasty (SLT), left eye (07/16) - Tonsillectomy Family History - No changes in family medical history r eported. Social History - Employment: Patient is retired and was recently unable to work for two weeks due to her knee condition, which involved physical tasks like pushing wheelchairs and moving furniture. - Substance Use: Denies smoking. Reports occasional alcohol use, approximately four glasses of wine per week. - Functional Status: [facility]. - Transportation: She drives but has rec ently been relying on her son for transportation due to her knee pain. They share a car. - Support System: Reports she has her so n available for help if needed. - Exercise: Currently not walking regula rly but acknowledges the need to start. Health Maintenance - EKG: Today's EKG shows normal sinus rh ythm with Q waves in leads II, III, and aVF, and mild nonspecific ST-T changes in the lateral leads. - Mammogram: Completed in April, wit h good results. - Bone Density: Last scan was in 2023, w ith the next one scheduled for 2025. The patient is receiving Prolia injections and is due for one in about a month. - Immunizations: Patient is up to date o n pneumococcal and other vaccines. - Colonoscopy: Last performed in 2022 wi th a recommended 10-year follow-up interval. Review of Systems - General: Reports feeling tired all the time. General health is rated as good. Denies dizziness on standing. - Skin: Reports a painful, odorous rash in the right axilla and right groin. - Constitutional: Reports persistent fat igue. - Eyes: Reports successful tearing. Clem es other complaints. - Gastrointestinal: Reports normal bowel movements. Denies problems with chewing or swallowing. - Genitourinary: Reports urinary frequen cy with small volumes, which she d escribes as annoying but unchanged from last year. She notes it is worse at home and may be behavioral. - Musculoskeletal: Reports moderate, paxton ly pain in her right knee, which has improved with a recent cortisone shot. - Psychological: Reports her mood slight ly affects her. Physical Exam General: Well developed, well nourished, in no acute distress. Appears stated age. Head: Normocephalic, atraumatic. Eyes: Pupils are equal, round and reactive to light and accommodation. Conjunctivae are clear. Scleras nonicteric bilat. Vision grossly normal. Ears: TMs clear AU, EACS WNL Nose: Patent, without discharge. Neck: No carotid bruit bilat. Supple, no adenopathy or thyromegaly. Breast: Edu on SBE Lungs: Clear to auscultation bilaterally. No rales, rhonchi or wheeze noted. Good air flow in all cowan. Heart: Regular rate and rhythm. 2/6 LSB murmur, No click, rubs or gallops are noted. Abdomen: Bowel sounds present in all quadrants. The abdomen is soft, nontender, with no masses or organomegaly noted. No hernias are noted. : Deferred. Reviewed recommendations for routine POST DOC FELLOWSHIP Pulses: Peripheral pulses are equal and palpable bilaterally. Trace edema BLE R>L hairless, chronic vascular skin changes, decreased PP Extremities: No clubbing, cyanosis nor edema is noted. Neurologic: Gait and station normal. Cranial Nerves 2-12 intact. Motor strength grossly symmetrical and intact. No sensory loss. Balance normal. Skin: Fungal rashes noted in the right armpit and right groin. No other rashes, ulcers, or lesions noted. Turgor is good. Skin color is good. Hair and nails are without abnormalities. Psych: Normal eye contact, affect and mood appropriate, and normal interactions. Patient is alert and appropriate to context. Mood slightly affected. Results - EKG (Today): Normal sinus rhythm with Q waves in leads II, III, and aVF. Mild nonspecific ST-T changes in the lateral leads. No acute ST elevation or hyperacute T waves. - Echocardiogram (11/30): Trace mitral, p ulmonic, and tricuspid valve regurgitation with an impaired relaxation filling pattern, consistent with diastolic heart failure. - Chest X-ray (recent, from ER): Mild fo arina thickening along the right peritracheal stripe; otherwise no acute abnormalities. - Right Knee X-ray (recent, from ER): Tr lynda joint effusion. - Right Leg Ultrasound (recent, from ER) : Negative for deep vein thrombosis. - Lab Results (recent): - TSH: 3.19 (previously 3.45). - CBC: Normal, no anemia. - Iron: Normal. - Vitamin B12: 1001 (elevated, not clini nini significant). - Vitamin D: 45.3 (normal). - Folate: Normal. - Urine Microalbumin/Creatinine Ratio: 3 8.5 (normal is <30), stable from last year (38). - Lab Results (ER, two weeks ago): BMP, CBC, and magnesium were performed. Medical Decision Making The patient is a 74-year-old female here for her annual Medicare wellness visit, presenting with several chronic conditions and acute complaints. The most acute issue is a severe fungal rash in the right axilla and groin, which appears painful and significant. Given the severity, a dual approach with both oral and topical antifungal medication is warranted to treat it aggressively from both the inside and outside. An in-office EKG showed Q waves in the inferior leads and nonspecific ST-T changes, which could suggest a history of infarction. However, given the known issues with the office EKG machine and the lack of a prior EKG for comparison, I am ordering an outpatient EKG at the hospital for a more reliable reading by a psychiatric aide instructor before drawing any conclusions. The patient's existing diagnoses of diastolic heart failure and stage 3 chronic kidney disease were reviewed. She is asymptomatic for heart failure and her lab markers for kidney disease (GFR, microalbuminuria) are stable. Her current medic ations are appropriate for managing these conditions, and no changes are needed at this time. For her hypothyroidism, her TSH remains slightly elevated at 3.19 because she did not follow the previous instruction to increase her levothyroxine dose once a week. This plan will be re-instituted with clear written instructions to target a TSH level closer to 2. Plan 1. Intertrigo - The rash is identified as a severe fun gal infection. - Prescribed oral fluconazole, one pill to be taken, wait three days, then take a second pill. - Prescribed topical nystatin cream to b e applied to both the right axilla and groin three times a day until the rash is resolved. - Patient instructed to keep the areas d ry, using cotton fabric if needed, and to avoid powders or other [id number] creams. - Written prescriptions provided as e-pr escribing to [facility] was unsuccessful. 2. Abnormal Electrocardiogram [Ekg] - The in-office EKG showed Q waves sugge stive of a possible prior infarction, but the result is considered unreliable due to known issues with the machine and lack of a prior EKG for comparison. - An electronic order for an outpatient EKG at the hospital has been placed under the diagnosis of hypertension to obtain a hospital-grade reading interpreted by a psychiatric aide instructor. - Patient instructed to call the [facility] to determine if an appointment is needed or if it is a walk-in procedure. 3. Hypothyroidism - The patient's TSH is 3.19, slightly im proved from 3.45 but still above the target of 2. - The patient forgot the previous instru ction to take an extra 200 mcg of levothyroxine once weekly. - Will provide written instructions for the patient to take two tablets of levothyroxine one day a week to help lower her TSH. 4. Right Knee Arthritis - The patient's knee is feeling much bet ter after arthrocentesis and a cortisone shot by her lumber checker. - The importance of walking and staying active to manage arthritis was discussed. 5. Hypertension - Patient is out of refills for amlodipi ne. - A refill for amlodipine was sent to [facility] pharmacy. 6. Obstructive Sleep Apnea - The patient's CPAP setup is still pend ing with [facility]. - The home care specialist, Sonia, will come in to speak with the patient to provide an update and clarify the next steps. Patient Instructions - You have been given printed prescripti ons for an antifungal pill (fluconazole) and cream (nystatin) for your rash. Please take these to Ji. - Take one fluconazole pill now, and the second pill in three days. - Apply the nystatin cream to the rashes in your armpit and groin three times a day until they are gone. - Keep the rash areas as dry as possible . Do not use any other powders or creams on them. - An order has been placed for you to ge t an EKG at the hospital. Please call the hospital first to ask if you need to make an appointment or if you can just walk in. - For your thyroid, please take two of y our levothyroxine tablets on one day each week, and one tablet on the other six days. - Your office contact agent, nirali Scott come in to speak with you about the status of your CPAP machine. - Continue your efforts to walk and stay active, as this is important for your knee arthritis. - Consider reducing alcohol intake, as t he sugar can negatively affect your health. - Pay attention to your urges to urinate frequently when at home to see if it is more of a habit than a physical need. - RTO 6 mo routine fu with labs sooner a s needed. Consent Patient was informed and verbally consented to the use of an ambient scribe for clinic note documentation during this visit. An additional 40 minutes was spent addressing the problem(s) noted at todays visit. This includes time spent before the visit reviewing the chart, time spent during the visit, and time spent after the visit on documentation reviewing laboratory results, diagnostic imaging, medications, performing a medically necessary evaluation, counseling on diagnoses, care coordination, ordering appropriate tests, ordering appropriate medications, review of tests performed by other providers, reporting test results with the patient, communication with other healthcare providers. [facility] Medical History (Updated 07/20/25 @ 17:08 by [facility]) No pertinent past medical history Surgical History History of colonoscopy (~2022) History of rotator cuff surgery H/O: hysterectomy No pertinent past surgical history Family History Mother Hypertension Stroke Father Arthritis, rheumatoid Glaucoma Social History (Updated 04/17/25 @ 12:36 by Nilda Mendoza CMA) Household Members: None Housing: Apartment 75 years or older and lives alone: No Alcohol intake: current Alcohol intake frequency: holidays/special occasions only Patient Tobacco Use Status: Former Tobacco user Tobacco use type: Cigarette Years Smoked: Only smoked during college e-Cigarette/Vaping Use: Never Used service: No Current occupational status: retired Current occupational exposures/hazards: No Cognitive needs: No Hearing needs: No Vision needs: No Questionnaire Medicare Wellness Checkup What [age] What gender do you identify with?: female During the past 4 weeks, how much have you been bothered by emotional problems such as feeling anxious, depressed, irritable, sad or downhearted, and blue?: slightly During the past 4 weeks, has your physical & emotional health limited your social activities with family, friends, neighbors, or groups?: not at all During the past 4 weeks, how much bodily pain have you generally had?: moderate pain During the past 4 weeks, was someone available to help you if you needed & wanted help?: yes, as much as I wanted During the past 4 weeks, what was the hardest physical activity you could do for at least 2 minutes?: moderate Can you get to places out of walking distance without help? (For eg., can you travel alone on buses, taxis or drive your car?): Yes Can you go shopping for groceries or clothes without someone's help?: Yes Can you prepare your own meals?: Yes Can you do your housework without help?: Yes Because of any health problems, do you need the help of another person with your personal care needs such as eating, bathing, dressing or getting around the house?: No Can you handle your own money without help?: Yes During the past 4 weeks, how would you rate your health in general?: good During the past 4 weeks how have things been going for you?: very well; could hardly better Are you having difficulties driving your car?: no Do you always fasten your seat belt when you are in a car?: yes, usually During past 4 weeks, have you been bothered by the following: never: Falling or dizzy when standing up, Sexual problems?, Trouble eating well? and Problems using the telephone? and always: Tiredness or fatigue? Have you fallen 2 or more times in the past year?: No Are you afraid of falling?: Yes Are you a smoker?: no During the past 4 weeks, how many drinks of wine, beer, or other alcoholic beverages did you have?: 2-5 drinks per week Do you exercise for about 20 minutes 3 or more times a week?: yes, some of the time Have you been given information to help with the following?: no: Hazards in your house that might hurt you? and no: Keeping track of your medications? How often do you have trouble taking medicines the way you have been told to take them?: I always take medicine as prescribed How confident are you that you can control & manage most of your health problems?: very confident What is your race?: White Activity of Daily Living Bathing - sponge bath, tub bath or shower: receives no assistance (gets in/out by self, if usual bathing means Dressing - getting clothes from closets & drawers, including inner/outer garments & fasteners.: gets clothes & gets completely dressed without help Toileting - going to the 'toilet room' for urine/bowel elimination & cleaning self/arranging clothes: goes to toilet room, cleans self, arranges clothes without help Transfer: moves in & out of bed and chair without help (may use support object) Continence: controls urination/bowel movements completely by self Feeding: feeds self without help Total Score: 0 Information obtained from: patient Using telephone: independent Traveling: independent Shopping: independent Preparing meals: independent Housework: independent Taking medicine: independent Managing money: independent PHQ-9 Over the last 2 weeks, how often have you been bothered by any of the following problems? 1. Little interest or pleasure in doing things: not at all 2. Feeling down, depressed, or hopeless: not at all 3. Trouble falling or staying asleep, or sleeping too much: not at all 4. Feeling tired or having little energy: not at all 5. Poor appetite or overeating: not at all 6. Feeling bad about yourself - or that you are a failure or have let yourself or your family down: not at all 7. Trouble concentrating on things, such as reading the newspaper or watching television: not at all 8. Moving or speaking so slowly that other people could have noticed. Or the opposite - being so fidgety or restless that you have been moving around a lot more than usual: not at all 9. Thoughts that you would be better off or of hurting yourself in some way: not at all Total score: 0 Depression Screening Interpretation: Negative Depression Screening Done: Yes 31851 - PHQ-9 Billing: Yes Source: Developed by Drs. Jerome Carranza, Padmini Bower, Jay Jay Gonzalez and colleagues, with an educational [place] from [employer]. Physical Exam Vital Signs: Last Vital Signs Temp 97.5 F 07/20/25 15:05 Pulse 71 07/20/25 15:05 Resp 12 07/20/25 15:05 BP 124/72 07/20/25 15:05 Pulse Ox 99 07/20/25 15:05 Oxygen Delivery Method Room Air 07/20/25 15:05 BMI result Body Mass Index 38.5 Office Procedures EKG 91250-[id number], Complete Vision Screening Right Eye: 20/30 Left Eye: 20/30 Bilateral: 20/30 Color: Pass [id number] - Vision Screening Results Reviewed Results Reviewed: Laboratory 07/10/25 Result Units Range Interpretation Provider Comments White Blood Count 5.3 X10*3/uL (4.8-10.8) Red Blood Count 4.22 X10*6/uL (4.20-5.50) Hemoglobin 13.3 g/dl (12.0-16.0) Hematocrit 39.7 % (37.0-47.0) Mean Corpuscular Volume 94.1 fL (80.0-98.0) Mean Corpuscular Hemoglobin 31.5 pg (27.0-33.0) Mean Corpuscular Hemoglobin Concent 33.5 g/dl (31.0-35.0) Red Cell Distribution Width 13.8 % (11.0-16.0) Platelet Count 294 X10*3/uL (160-400) Mean Platelet Volume 9.9 fL (9.4-12.3) Nucleated RBC Absolute Count (auto) 0.000 X10*3/uL (0.0-0.012) Nucleated Red Blood Cells % (auto) 0.0 /100WBC (0.0-0.2) Iron Level 117 mcg/dL (30-160) Total Iron Binding Capacity 345 mcg/dL (228-428) Percent Iron Saturation 34 % (15-50) Unsaturated Iron Binding 228 ug/dL Vitamin B12 Level 1001 pg/mL (200-900) High 25-Hydroxy Vitamin D Total 45.3 ng/mL (>30) Folate 17.3 ng/mL (> or = 4.0) Thyroid Stimulating Hormone (TSH) 3.19 uIU/mL (0.32-4.0) Urine Creatinine 54.51 mg/dL Urine Microalbumin 21.0 mg/L Urine Microalbumin/Creatinine Ratio 38.5 ug/mg cr (<30) High Assessment & Plan Assessment & Plan (1) Encounter for subsequent annual wellness visit (AWV) in Medicare patient: Onset Date: ~07/20/25 Code(s): Z00.00 - Encounter for general adult medical examination without abnormal f indings (2) Fungal rash of torso: Code(s): B36.9 - Superficial mycosis, unspecified (3) HTN (hypertension): Comment: BP goal < 130/80. losartan 100 mg/hydrochlorothiazide 12.5 mg 1 tablet once per day sent to the pharmacy should take this along with the amlodipine 10 mg daily. Code(s): I10 - Essential (primary) hypertension Qualifiers: Hypertension type: primary hypertension Qualified Code(s): I10 - Essential (primary) hypertension (4) CHF (congestive heart failure): Comment: Echo 11/2023 trace mitral , pulmonic and tricuspid valve regurg Normal left ventricular cavity size. There is normal left ventricular wall thickness. The left ventricular systolic function is hyperdynamic. The visually estimated ejection fraction is >70%. Spectral Doppler is indicative of an impaired relaxation filling pattern. Plan: Euvolemic, medical mgmt with CCB, ARB + HCTZ Code(s): I50.9 - Heart failure, unspecified Qualifiers: Heart failure chronicity: chronic Heart failure type: diastolic Qualified Code(s): I50.32 - Chronic diastolic (congestive) heart failure (5) Hyperlipidemia LDL goal <100: Comment: on atorvastatin 40mg QD LDL at goal, continue atorvastatin 40 mg daily Code(s): E78.5 - Hyperlipidemia, unspecified (6) Hypothyroid: Comment: on levothyroxine 100mcg QD Code(s): E03.9 - Hypothyroidism, unspecified Qualifiers: Hypothyroidism type: acquired Qualified Code(s): E03.9 - Hypothyroidism, unspecified (7) ACP (advance care planning): Code(s): Z71.89 - Other specified counseling (8) Bipolar 1 disorder: Comment: managed by outside prescriber currently on lorazepam, abilify and cymbalta Code(s): F31.9 - Bipolar disorder, unspecified (9) Heart valve regurgitation: Comment: Echo 11/2023 trace mitral , pulmonic and tricuspid valve regurg Normal left ventricular cavity size. There is normal left ventricular wall thickness. The left ventricular systolic function is hyperdynamic. The visually estimated ejection fraction is >70%. Spectral Doppler is indicative of an impaired relaxation filling pattern. Code(s): I38 - Endocarditis, valve unspecified (10) PVD (peripheral vascular disease): Comment: based on physical exam Monitor skin integrity, cont statin and BP control Code(s): I73.9 - Peripheral vascular disease, unspecified (11) Prediabetes: Comment: on Metformin ER 500mg po BID Code(s): R73.03 - Prediabetes (12) Osteoporosis: Comment: 11/2023 DIAGNOSIS: Osteoporosis based on the lowest T-score value of -3.6 in the femoral neck applying World Health Organization criteria. Discussed tx options such as Fosomax VS referral to Rheum/endo for further workup and treatment options Cont wt bearing exercises, supplements. Normal Vit D + Ca levels. On Prolia, managed by Rheum Code(s): M81.0 - Age-related osteoporosis without current pathological fracture Qualifiers: Osteoporosis type: other Presence of current pathological fracture: without current pathological fracture Qualified Code(s): M81.8 - Other osteoporosis without current pathological fracture (13) Vitamin D deficiency: Comment: on Vitamin d3 50mcg QD + Calcium Carb 1200 mg QD Vitamin-D within normal limits, continue Code(s): E55.9 - Vitamin D deficiency, unspecified (14) Glaucoma: Comment: will need to obtain records active w Dr Briggs on eye drops Code(s): H40.9 - Unspecified glaucoma Qualifiers: Glaucoma type: unspecified Laterality: unspecified laterality Qualified Code(s): H40.9 - Unspecified glaucoma (15) CKD (chronic kidney disease) stage 3, GFR 30-59 ml/min: Comment: based on previous records; Code(s): N18.30 - Chronic kidney disease, stage 3 unspecified Qualifiers: Chronic kidney disease stage 3 subtype: stage 3a (GFR 45-59) Qualified Code(s): N18.31 - Chronic kidney disease, stage 3a (16) GERD (gastroesophageal reflux disease): Code(s): K21.9 - Gastro-esophageal reflux disease without esophagitis Qualifiers: Esophagitis presence: without esophagitis Qualified Code(s): K21.9 - Gastro-esophageal reflux disease without esophagitis (17) Overactive bladder: Code(s): N32.81 - Overactive bladder (18) History of mammogram: Onset Date: ~04/2025 Code(s): Z92.89 - Personal history of other medical treatment (19) BRIANNA on CPAP: Code(s): G47.33 - Obstructive sleep apnea (adult) (pediatric) Plan . Orders: Orders Comprehensive Met. Panel 6 Months E03.9 - Hypothyroidism, unspecified, E78.5 - Hyperlipidemia, unspecified, I10 - Essential (primary) hypertension Hemoglobin A1c 6 Months E03.9 - Hypothyroidism, unspecified, E78.5 - Hyperlipidemia, unspecified, I10 - Essential (primary) hypertension Lipid Panel 6 Months E03.9 - Hypothyroidism, unspecified, E78.5 - Hyperlipidemia, unspecified, I10 - Essential (primary) hypertension ECG 12 lead EKG Today I10 - Essential (primary) hypertension, I50.32 - Chronic diastolic (congestive) heart failure TSH reflex Free T4 6 Months E03.9 - Hypothyroidism, unspecified, E78.5 - Hyperlipidemia, unspecified, I10 - Essential (primary) hypertension Medications: New fluconazole take 1 tab day 1, repeat second dose on day 3 150 mg PO Q3D 2 tabs 0RF 2 doses nystatin apply to affected area 1 appl topical TID 30 grams 2RF 30 days Refilled amlodipine 10 mg PO DAILY 90 tabs 1RF Quality Reporting (2019) Adult ([facility] 138/09/30/68) Smoking risk assessment performed?: Yes Patient Tobacco Use Status: Former Tobacco user Depression screening performed: Yes Screen Results: Yes Negative screen Recommended changes not done: EKG Patient refused: Yes Systolic BP not done?: No Diastolic BP not done?: No BMI screening not done: No BMI High - Follow Up: Yes High-plan Sexual Activity Screening ([facility] 153) Sexually active?: No Immunizations ([facility] 147, 117) Annual Influenza Vaccine: Yes Measles Antibody Test: No Mumps Antibody Test: No Rubella Antibody Test: No Varicella Antibody Test: No Anti Hepatitis A IgG Antigen test: No Anti Hepatitis B Virus Surface Ab test: No Fall Risk Screening ([facility] 139) Last assessed Fall Risk: 07/20/25 Fall risk assessment: 1 Fall in past year Dementia Assessment ([facility] 149) Cognitive assessment recorded: Yes (6 cit wnl) Assessment of cognition with standardized tool: Yes Depression/Bipolar (159/160/161/177) PHQ-9: Total score: 0 Ophthalmol:Cataracts Visual Acuity (133) Visual acuity exam performed: Yes (see HPI) Coding Level of Care Code Medicare Subsequent (G0439) Est Pt Level 5 (75495) Diagnoses Encounter for subsequent annual wellness visit (AWV) in Medicare patient Z00.00 Fungal rash of torso B36.9 Primary hypertension I10 Hypertension type: primary hypertension Chronic diastolic congestive heart failure I50.32 Heart failure chronicity: chronic Heart failure type: diastolic Hyperlipidemia LDL goal <100 E78.5 Acquired hypothyroidism E03.9 Hypothyroidism type: acquired ACP (advance care planning) Z71.89 Bipolar 1 disorder F31.9 Heart valve regurgitation I38 PVD (peripheral vascular disease) I73.9 Prediabetes R73.03 Other osteoporosis without current pathological fracture M81.8 Osteoporosis type: other Presence of current pathological fracture: without current pathological fracture Vitamin D deficiency E55.9 Glaucoma, unspecified glaucoma type, unspecified laterality H40.9 Glaucoma type: unspecified Laterality: unspecified laterality Stage 3a chronic kidney disease N18.31 Chronic kidney disease stage 3 subtype: stage 3a (GFR 45-59) Gastroesophageal reflux disease without esophagitis K21.9 Esophagitis presence: without esophagitis Overactive bladder N32.81 History of mammogram Z92.89 BRIANNA on CPAP G47.33 CPT Codes Advance Care Planning - Time spent: 16-45 minutes ([id number]) EKG - CPT: 09220-[id number], Complete ([id number]) Vision Screening - Vision Screenin - Vision Screening ([id number]) Additional Codes PHQ-9 - 55075 - PHQ-9 Billing: Yes ([id number]) Advance Care Planning Advance Care Planning discussion: Exists, not on file Date of discussion: 07/20/25 Who was present: self Forms completed: Health Care Proxy and MOLST Time spent: 16-45 minutes Actual minutes spent: 16
[2025-07-20 15:05] VITALS: BP 124/72; PULSE 71; RESP 12; TEMP 36.4; O2SAT 99; BMI 38.5
--- OUTSIDE RECORDS SUMMARY | 2025-07-20 20:01 | XMS_ITS | Clinical Summary ---
Author Organization [facility] Address [address] [facility] [place] [address] Phone Care Team Providers Care Contract Administrative Assistant Name Role Phone Pcp, Unknown Primary Care [...] Description 07/08/2025 3:30 PM EST Ancillary Procedure [facility] [address] [place] [address] Nisa Vega MD 07/08/2025 11:56 AM EST - 07/08/2025 5:11 PM EST Emergency [facility] [address] [place] [address] Nisa Vega MD Discharge Disposition: Home or [...] 4.00 - 11.00 K/uL 07/08/2025 1:16 PM [facility] RBC 4.44 4.00 - 5.20 M/uL 07/08/2025 1:16 PM [facility] Hemoglobin 14.1 12.0 - 16.0 g/dL 07/08/2025 1:16 PM [facility] Hematocrit 42.2 36.0 - 46.0 % 07/08/2025 1:16 PM [facility] MCV 95.0 80.0 - 100.0 fL 07/08/2025 1:16 PM [facility] MCH 31.8(H) 27.0 - 31.0 pg 07/08/2025 1:16 PM [facility] MCHC 33.4 32.0 - 36.0 g/dL 07/08/2025 1:16 PM [facility] MPV 9.2 8.4 - 12.0 fL 07/08/2025 1:16 PM [facility] RDW-CV 13.9 11.5 - 14.5 % 07/08/2025 1:16 PM [facility] PLT 303 150 - 450 K/uL 07/08/2025 1:16 PM [facility] Neutrophils 68.5 % 07/08/2025 1:16 PM [facility] Lymphocytes 17.0 % 07/08/2025 1:16 PM [facility] Monocytes 12.3 % 07/08/2025 1:16 PM [facility] Eosinophils 1.2 % 07/08/2025 1:16 PM [facility] Basophils 0.6 % 07/08/2025 1:16 PM [facility] Imm Grans 0.4 % 07/08/2025 1:16 PM [facility] NRBC 0.0 <=0.0 /100 WBCs 07/08/2025 1:16 PM [facility] Absolute Neutrophils 5.65 1.92 - 7.60 K/uL 07/08/2025 1:16 PM [facility] Absolute Lymphocytes 1.40 0.72 - 4.10 K/uL 07/08/2025 1:16 PM [facility] Absolute Monocytes 1.01 0.16 - 1.10 K/uL 07/08/2025 1:16 PM [facility] Absolute Eosinophils 0.10 0.00 - 0.50 K/uL 07/08/2025 1:16 PM [facility] Absolute Basophils 0.05 0.00 - 0.15 K/uL 07/08/2025 1:16 PM [facility] Absolute Imm Grans 0.03 0.00 - 0.09 K/uL 07/08/2025 1:16 PM [facility] Absolute NRBC 0.00 <=0.00 K cells/uL 07/08/2025 1:16 PM [facility] Absolute Neutrophils 5.65 1.92 - 7.60 K/uL 07/08/2025 1:16 PM [facility] Comment:Automated cell count . Manual ANC may differ if performed. Diff Type Auto 07/08/2025 1:16 PM [facility] Blood (Blood) Venipuncture / Unknown 07/08/2025 1:11 PM EST 07/08/2025 1:13 PM EST Nisa Vega MD LAB BLOOD BKR ORDERABLES Fin al Result Performing Organization Address City/[facility] Co de Phone Number [address] [address] * NT-proBNP (07/08/2025 1:11 PM EST) NT-ProBNP 77 0 - 900 pg/mL 07/08/2025 1:41 PM [facility] Comment: Age <50 years: 0-450 pg/ml Age [...] ORDERABLES Fin al Result Performing Organization Address City/[facility]/ZIP Co de Phone Number [address] [address] * Magnesium (07/08/2025 1:11 PM EST) Magnesium 2.3 1.7 - 2.6 mg/dL 07/08/2025 1:41 PM [facility] Blood (Blood) Venipuncture / Unknown 07/08/2025 1:11 PM EST 07/08/2025 1:13 PM EST us Nisa Vega MD LAB BLOOD BKR ORDERABLES Fin al Result Performing Organization Address City/[facility]/ZIP Co de Phone Number [facility] [address] [place] [address] * (ABNORMAL) Basic Metabolic Panel (BMP) (07/08/2025 1:11 PM EST) Pathologist [facility] Sodium 140 136 - 145 mmol/L 07/08/2025 1:41 PM [facility] Potassium 3.9 3.4 - 5.1 mmol/L 07/08/2025 1:41 PM [facility] Chloride 101 98 - 107 mmol/L 07/08/2025 1:41 PM [facility] CO2 25 20 - 31 mmol/L 07/08/2025 1:41 PM [facility] Anion Gap 14 3 - 17 mmol/L 07/08/2025 1:41 PM [facility] BUN 22 6 - 23 mg/dL 07/08/2025 1:41 PM [facility] Creatinine 1.00 0.50 - 1.00 mg/dL 07/08/2025 1:41 PM [facility] eGFR 59(L) >59 mL/min/1.7 3m2 07/08/2025 1:41 PM [facility] Comment:Estimated glomerular filtration rate calculated using the CKD-EPI refit equation. Glucose 94 70 - 99 mg/dL 07/08/2025 1:41 PM [facility] Calcium 10.8(H) 8.5 - 10.5 mg/dL 07/08/2025 1:41 PM [facility] Blood (Blood) Venipuncture / Unknown 07/08/2025 1:11 PM EST 07/08/2025 1:13 PM EST us Nisa Vega MD LAB BLOOD BKR ORDERABLES Fin al Result [address] [address] * XR CHEST PA AND LATERAL 2 [...] clinician's provided indication for this examination in [facility]: Pain; S/P Fall COMPARISON: None. Procedure Note Calvin Reyes MD - 07/08/2025 XR KNEE 4 OR MORE VIEWS (RIGHT) Referring clinician's provided indication for this examination in [facility]:Pain; S/P Fall COMPARISON: None. IMPRESSION: No acute [...] clinician's provided indication for this examination in [facility]: Right Leg Pain TECHNIQUE: Right lower extremity [...] Payer (Ef fective 2023) Name:Belen Ram Member ID:[id number] Relation to Subscriber:Self Name:Belen Ram Subscriber ID:[id number] Payer ID:[id number] Group ID:Not on file Type:Medicare Address: [employer] [address] [place] [id number] GENERIC MEDICARE SUPPLEMENT MEDICARE PART A & B GENERIC MEDICARE SUPPLEMENT MEDICARE PART A & B GENERIC MEDICARE SUPPLEMENT MEDICARE PART A & B GENERIC MEDICARE SUPPLEMENT MEDICARE PART A & B GENERIC MEDICARE SUPPLEMENT Care Teams Contract Administrative Assistant Relationship Specialty Start Date End Date Pcp, Unknown PCP - General 07/08/25 Additional Source Comments The information contained in this document represents components of the legal health record. It is not the complete legal health record.[facility]
--- OUTSIDE RECORDS SUMMARY | 2025-07-20 20:01 | XMS_ITS | Patient Health Record ---
Author Organization [facility] Billing Info Address [address] [place] [address] Phone [phone] Care Team Providers Care Salesperson [employer] Name Role Phone EDWIGE LONDON MD Primary Care Provider [phone] Allergies Allergen (clinical drug ingredient) Drug/Non Drug Allergy documented on EMR Reaction Allergy Type Onset Date Status Augmentin rash Drug Allergy Active Reason For Referral No Information Medications Medication SIG (Take, Route, Frequency, Duration) Notes Start Date End Date Diagnosis (ICD Code) Status Atorvastatin Calcium 40 MG Tablet Take 1 tablet by mouth once daily; Duration: 90 days Active MetFORMIN HCl ER 500 MG Tablet Extended Release 24 Hour Take 1 tablet by mouth twice daily with food; Duration: 90 days Active Lamotrigine 200 MG Tablet 1 tablet Orally Once a day; Duration: 90 days Active Calcium 500 + D [id number] 1 tab Orally Twice a day Active Duloxetine HCl 30 MG Capsule Delayed Release Particles 1 capsule Orally Daily; Duration: 90 days Active [place] 3 1000 MG Capsule 1 capsule Orally twice a day Active Omeprazole 40 MG Capsule Delayed Release Take 1 capsule by mouth once daily; Duration: 90 days Active Multivitamin - 1 Tab Orally OD A ctive Losartan Potassium 100 MG Tablet Take 1 tablet by mouth once daily; Duration: 90 days Active Abilify 2 MG Tablet 1 tablet Orally Once a day; Duration: 90 days Active Levothyroxine Sodium 100 MCG Tablet TAKE 1 TABLET BY MOUTH ONCE DAILY IN THE MORNING ON AN EMPTY STOMACH; Duration: 90 days Active Lorazepam 0.5 MG Tablet 1 tablet as needed Orally every 6 hrs; Duration: 7 days Active Aripiprazole 2 MG Tablet Take 1 tablet by mouth once daily; Duration: 90 Active Amlodipine Besylate 10 MG Tablet Take 1 tablet by mouth once daily; Duration: 90 days Active Immunizations Status Vaccine Route Administration Date Visit Date Comments Administered ZOSTER (SHINGRIX) Unknown 03/27/2019 given at [facility] on 03/27/19 PNEUMOCOCCAL 13 CONJ ([id number]) IM Intramuscular 05/02/20 18 zFLU 4V (FLUZONE QUAD), 3 YRS+, NO PRES - ALL PA YORS IM Intramuscular 05/02/2018 zFLU 4V (FLUZONE QUAD), 3 YRS+, NO PRES - ALL PAYORS Unkno wn 07/05/2017 PNEUMOCOCCAL - 23 POLY (PNEUMOVAX 23) IM Intramuscular FLU (Past vaccine of unknown type) Unknown 05/18/2016 FLU (Past vaccine of unknown type) IM Intramuscular 2014 FLU (Past vaccine of unknown type) Unknown 05/23/2012 FLU (Past vaccine of unknown type) Unknown 05/18/2011 FLU (Past vaccine of unknown type) IM Intramuscular 2009 zZOSTER (Past vaccine of unknown type)121 Unknown 12/04 TDAP (Past vaccine of unknown type) IM Intramuscular 03/14 TETANUS (Past vaccine of unknown type) Unknown 08/09/19 04 TETANUS (Past vaccine of unknown type) Unknown 08/09/18 86 Social History Tobacco Use: Social History Observation Description Date Details (start date - stop date) Never Smoker NA - NA Sex Observation Social History Observation Description Sex Observation Female Social History Social History Social Info Question Answer Notes Tobacco Status: Patient is a never smoker High Risk for Sexually Acquired Diseases including HIV: At Risk: No Illicit Drug Use: Patient/Family reports: No illicit drug use Communication Needs: Do you need glasses or contacts to read brochures? No Alcohol Use: Patient uses alcohol Socially 1 week Social Determinants of Health (SDoH) - Responses with * indicate a positive response for a social need: 1) Are you worried or concerned that in the next two months you may not have stable housing that you own, rent, or stay in as a part of a household? No 3) Within the past 12 months , you worried that your food would run out before you got money to buy more. Never true 4) Within the past 12 months , the food you bought just didn't last and you didn't have money to get more. Never true 5) Do you put off or neglect going to the doctor because of distance or transportation? No Health Literacy: Are medication label s often written in a way that is easy to read and understand? Yes Concerns: Social Concerns: No Personal Safety: Do you wear a seat b elt ? Yes Ambulatory Status: : is independent Living Environment: Reported as: House/Condo/Apartment Additional Details Category Social Info Options Details Social History Occupation/Work: [employer] Exercise: no Caffeine: yes 1 cup daily Marital Status: Drugs: no Problems Problem Type SNOMED Code ICD Code Dates Problem Status W/U Status Risk Notes Problem Prediabetes (543087673) Prediabetes (R73.03) Added On:03/09 Active confirmed Problem Morbid obesity (389001999) Morbid obesity (E66.01) Added On:04/09 Active confirmed Problem Vitamin D deficiency (75804659) Vitamin D deficiency (E55.9) Added On:06/10 Active confirmed Problem Dermatitis (023678548) Dermatitis (L30.9) Added On:03/09 Active confirmed Problem Bipolar 1 disorder (449036753) Bipolar 1 disorder (F31.9) Added On:06/[address] Bower Problem Hypothyroidism (16966077) Hypothyroidism (acquired) (E03.9) Added On:06/10 Active confirmed Problem Obesity (308767327) Obesity (BMI 30-39.9) (E66.9) Added On:06/10 Active confirmed Problem Mixed hyperlipidemia (360500788) Hyperlipidemia, mixed (E78.2) Added On:06/10 Active confirmed Problem Iron deficiency anemia (00879926) Iron deficiency anemia, unspecified iron deficiency anemia type (D50.9) Added On:04/09 Active confirmed Problem Sleep apnea (48463128) Sleep apnea in adult (G47.30) Added On:06/10 Active confirmed Problem Osteopenia of lower leg, unspecified laterality (M85.869) Added On:06/10 Active confirmed Plan Of Treatment Pending Test Test Name Order Date MAMMO- BONE [facility]51762[facility] 09/08/2021 MAMMO- BONE DENSITOMETRY (16005)([facility]EGL [facility]) 07/11/2021 COLOGUARD (67480) (EXACT-1000) 9 SLEEP STUDY AT HOME-DIAGNOSTIC, UNATTEND ED (47520) 03/27/2019 Insurance Providers Payer Name Payer Address Payer Phone Subscriber Number Group Number Insured Name Patient Relationship to Insured Coverage Start Date Coverage End Date [place] [address] [address] [employer] [place], [place] [id number] Belen Ram Self - patient is the insured [employer] CASUAL[employer] MCR SUPP [address] [address] ATTN CLAIMS DEPT [place], [place] [id number] [phone] [id number] YaleBelen Self - patient is the insured Medical [...] Date(Month/Year) Breast surgery 1996 Cataract surgery left 2012 Catarct surgery right 2012 Colonoscopy Dental surgery [...]
== END 2025-07-20 16:22 | disposition home or self-care (01) ==
LOC: HO.HMCFM 14:58
PROVIDERS: PCP Nurse Practitioner Family; Visit Provider Nurse Practitioner Family
DX: Z00.00 Encounter for general adult medical examination without abnormal findings (principal); N18.31 Chronic kidney disease, stage 3a; I50.32 Chronic diastolic (congestive) heart failure; F31.9 Bipolar disorder, unspecified; I10 Essential (primary) hypertension; I38 Endocarditis, valve unspecified; I73.9 Peripheral vascular disease, unspecified; B36.9 Superficial mycosis, unspecified; E78.5 Hyperlipidemia, unspecified; E03.9 Hypothyroidism, unspecified; R73.03 Prediabetes; M81.8 Other osteoporosis without current pathological fracture; K21.9 Gastro-esophageal reflux disease without esophagitis; E55.9 Vitamin D deficiency, unspecified; N32.81 Overactive bladder; H40.9 Unspecified glaucoma; G47.33 Obstructive sleep apnea (adult) (pediatric)

== ENCOUNTER → 2025-07-20 14:57 | Outpatient (BNVA) | payer MEDICARE, OTHER, SELFPAY | PROVIDERS: PCP Nurse Practitioner Family; Visit Provider Nurse Practitioner Family | DX: I10 Essential (primary) hypertension (principal); G47.33 Obstructive sleep apnea (adult) (pediatric); Z99.89 Dependence on other enabling machines and devices; M17.11 Unilateral primary osteoarthritis, right knee; E03.9 Hypothyroidism, unspecified; Z13.31 Encounter for screening for depression; B36.9 Superficial mycosis, unspecified; I50.32 Chronic diastolic (congestive) heart failure; E78.5 Hyperlipidemia, unspecified; Z71.89 Other specified counseling; F31.9 Bipolar disorder, unspecified; I38 Endocarditis, valve unspecified; I73.9 Peripheral vascular disease, unspecified; M81.8 Other osteoporosis without current pathological fracture; E55.9 Vitamin D deficiency, unspecified; H40.9 Unspecified glaucoma; N18.31 Chronic kidney disease, stage 3a; K21.9 Gastro-esophageal reflux disease without esophagitis; N32.81 Overactive bladder; Z92.89 Personal history of other medical treatment | CPT/HCPCS: 93005; 96127; 99212; 99497 ==

== ENCOUNTER → 2025-07-24 11:34 | Outpatient (REF) | payer MEDICARE, OTHER, SELFPAY ==
--- NOTE | 2025-07-24 11:40 | ECG_ITS ---
Test Reason : htn Blood Pressure : */* mmHG Vent. Rate : 66 BPM Atrial Rate : 66 BPM P-R Int : 184 ms QRS Dur : 70 ms QT Int : 400 ms P-R-T Axes : 41 11 46 degrees QTcB Int : 419 ms Normal sinus rhythm Normal ECG No previous ECGs available Referred By: Gill Saldivar Electronically Signed By: Burak Calvo
--- OUTSIDE RECORDS SUMMARY | 2025-07-24 15:27 | XMS_ITS | Patient Health Record ---
Author Organization [facility] Billing Info Address [address] [place] [address] Phone [phone] Care Team Providers Care Mixing Machine Attendant Name Role Phone EDWIGE LONDON MD Primary Care Provider Allergies Allergen (clinical drug [...] 90 days Active Calcium 500 + D [id number] 1 tab Orally Twice a day Active Duloxetine HCl 30 MG Capsule Delayed Release Particles 1 capsule Orally Daily; Duration: 90 days Active [place] 3 1000 MG Capsule 1 capsule Orally [...] Administered ZOSTER (SHINGRIX) Unknown 03/27/2019 given at [facility] on 03/27/19 PNEUMOCOCCAL 13 CONJ ([id number]) IM Intramuscular 05/02/20 18 zFLU 4V (FLUZONE [...] Social Info Options Details Social History Occupation/Work: [employer] Exercise: no Caffeine: yes 1 cup daily Marital Status: Drugs: no Problems Problem Type SNOMED Code ICD Code Dates Problem Status W/U Status Risk Notes Problem Prediabetes (010642179) Prediabetes (R73.03) Added On:03/09 Active confirmed Problem Morbid obesity (494005543) Morbid obesity (E66.01) Added On:04/09 Active confirmed Problem Vitamin D deficiency (86549480) Vitamin D deficiency (E55.9) Added On:06/10 Active confirmed Problem Dermatitis (216764375) Dermatitis (L30.9) Added On:03/09 Active confirmed Problem Bipolar 1 disorder (363597677) Bipolar 1 disorder (F31.9) Added On:06/[address] Bower Problem Hypothyroidism (22581709) Hypothyroidism (acquired) (E03.9) Added On:06/10 Active confirmed Problem Obesity (696151242) Obesity (BMI 30-39.9) (E66.9) Added On:06/10 Active confirmed Problem Mixed hyperlipidemia (492693702) Hyperlipidemia, mixed (E78.2) Added On:06/10 Active confirmed Problem Iron deficiency anemia (53979973) Iron deficiency anemia, unspecified iron deficiency anemia type (D50.9) Added On:04/09 Active confirmed Problem Sleep apnea (33039279) Sleep apnea in adult (G47.30) Added On:06/10 Active confirmed Problem Osteopenia of lower leg, unspecified laterality (M85.869) Added On:06/10 Active confirmed Plan Of Treatment Pending Test Test Name Order Date MAMMO- BONE DENSITOMETRY (96232)([facility]) 09/08/2021 MAMMO- BONE DENSITOMETRY (41435)([facility]) 07/11/2021 COLOGUARD (37991) (EXACT-1000) 9 SLEEP STUDY AT HOME-DIAGNOSTIC, UNATTEND ED (74011) 03/27/2019 Insurance Providers Payer Name Payer Address Payer Phone Subscriber Number Group Number Insured Name Patient Relationship to Insured Coverage Start Date Coverage End Date [place] [address] [address] [employer] [place], [place] [id number] Belen Ram Self - patient is the insured [employer] CASUALTY MCR SUPP [address] [address] ATTN CLAIMS DEPT [place], [place] [id number] [phone] [id number] Belen Ram Self - patient is the [...] ALEM Acute bronchitis Surgical History Surgery Date(Month/Year) Glaucoma surgery 02/2019 Wrist Excision of Ganglion 1987 Total Abdominal Hysterectomy with remova l of both Ovaries 2006 Tonsillectomy Surgery for relief of elevated intraocul ar pressure bilateral 2006 Shoulder Arthroscopy with rotator cuff r epair right 2010 Neuroplasty Decompression Median Nerve a t Carpal Tunnel 2004 Inguinal Hernia repair 1960 Eye surgery 1992 D and C 2006 Dental surgery 1973 Colonoscopy Catarct surgery right 2013 Cataract surgery left 2011 Breast surgery 1996
--- OUTSIDE RECORDS SUMMARY | 2025-07-24 15:27 | XMS_ITS | Clinical Summary ---
Author Organization [facility] Address [address] [place] [phone] Phone Care Team Providers Care Senior Health Educator Name Role Phone Pcp, Unknown Primary Care [...] Description 07/08/2025 3:30 PM EST Ancillary Procedure [facility] [address] [place] [address] Nisa Vega MD 07/08/2025 11:56 AM EST - 07/08/2025 5:11 PM EST Emergency [facility] [address] [place] [address] Nisa Vega MD Discharge Disposition: Home or [...] 4.00 - 11.00 K/uL 07/08/2025 1:16 PM [facility] RBC 4.44 4.00 - 5.20 M/uL 07/08/2025 1:16 PM [facility] Hemoglobin 14.1 12.0 - 16.0 g/dL 07/08/2025 1:16 PM [facility] Hematocrit 42.2 36.0 - 46.0 % 07/08/2025 1:16 PM [facility] MCV 95.0 80.0 - 100.0 fL 07/08/2025 1:16 PM [facility] MCH 31.8(H) 27.0 - 31.0 pg 07/08/2025 1:16 PM [facility] MCHC 33.4 32.0 - 36.0 g/dL 07/08/2025 1:16 PM [facility] MPV 9.2 8.4 - 12.0 fL 07/08/2025 1:16 PM [facility] RDW-CV 13.9 11.5 - 14.5 % 07/08/2025 1:16 PM [facility] PLT 303 150 - 450 K/uL 07/08/2025 1:16 PM [facility] Neutrophils 68.5 % 07/08/2025 1:16 PM [facility] Lymphocytes 17.0 % 07/08/2025 1:16 PM [facility] Monocytes 12.3 % 07/08/2025 1:16 PM [facility] Eosinophils 1.2 % 07/08/2025 1:16 PM [facility] Basophils 0.6 % 07/08/2025 1:16 PM [facility] Imm Grans 0.4 % 07/08/2025 1:16 PM [facility] NRBC 0.0 <=0.0 /100 WBCs 07/08/2025 1:16 PM [facility] Absolute Neutrophils 5.65 1.92 - 7.60 K/uL 07/08/2025 1:16 PM [facility] Absolute Lymphocytes 1.40 0.72 - 4.10 K/uL 07/08/2025 1:16 PM [facility] Absolute Monocytes 1.01 0.16 - 1.10 K/uL 07/08/2025 1:16 PM [facility] Absolute Eosinophils 0.10 0.00 - 0.50 K/uL 07/08/2025 1:16 PM [facility] Absolute Basophils 0.05 0.00 - 0.15 K/uL 07/08/2025 1:16 PM [facility] Absolute Imm Grans 0.03 0.00 - 0.09 K/uL 07/08/2025 1:16 PM [facility] Absolute NRBC 0.00 <=0.00 K cells/uL 07/08/2025 1:16 PM [facility] Absolute Neutrophils 5.65 1.92 - 7.60 K/uL 07/08/2025 1:16 PM [facility] Comment:Automated cell count . Manual ANC may differ if performed. Diff Type Auto 07/08/2025 1:16 PM [facility] Blood (Blood) Venipuncture / Unknown 07/08/2025 1:11 PM EST 07/08/2025 1:13 PM EST Nisa Vega MD LAB BLOOD BKR ORDERABLES Fin al Result Performing Organization Address City/[facility] Co de Phone Number [address] [address] * NT-proBNP (07/08/2025 1:11 PM EST) NT-ProBNP 77 0 - 900 pg/mL 07/08/2025 1:41 PM [facility] Comment: Age <50 years: 0-450 pg/ml [...] ORDERABLES Fin al Result Performing Organization Address City/[facility]/ZIP Co de Phone Number [address] [address] * Magnesium (07/08/2025 1:11 PM EST) Magnesium 2.3 1.7 - 2.6 mg/dL 07/08/2025 1:41 PM [facility] Blood (Blood) Venipuncture / Unknown 07/08/2025 1:11 PM EST 07/08/2025 1:13 PM EST us Nisa Vega MD LAB BLOOD BKR ORDERABLES Fin al Result Performing Organization Address City/[facility]/ZIP Co de Phone Number [facility] [address] [place] [address] * (ABNORMAL) Basic Metabolic Panel (BMP) (07/08/2025 1:11 PM EST) Pathologist [facility] Sodium 140 136 - 145 mmol/L 07/08/2025 1:41 PM [facility] Potassium 3.9 3.4 - 5.1 mmol/L 07/08/2025 1:41 PM [facility] Chloride 101 98 - 107 mmol/L 07/08/2025 1:41 PM [facility] CO2 25 20 - 31 mmol/L 07/08/2025 1:41 PM [facility] Anion Gap 14 3 - 17 mmol/L 07/08/2025 1:41 PM [facility] BUN 22 6 - 23 mg/dL 07/08/2025 1:41 PM [facility] Creatinine 1.00 0.50 - 1.00 mg/dL 07/08/2025 1:41 PM [facility] eGFR 59(L) >59 mL/min/1.7 3m2 07/08/2025 1:41 PM [facility] Comment:Estimated glomerular filtration rate calculated using the CKD-EPI refit equation. Glucose 94 70 - 99 mg/dL 07/08/2025 1:41 PM [facility] Calcium 10.8(H) 8.5 - 10.5 mg/dL 07/08/2025 1:41 PM [facility] Blood (Blood) Venipuncture / Unknown 07/08/2025 1:11 PM EST 07/08/2025 1:13 PM EST us Nisa Vega MD LAB BLOOD BKR ORDERABLES Fin al Result [address] [address] * XR CHEST PA AND LATERAL 2 [...] clinician's provided indication for this examination in [facility]: Pain; S/P Fall COMPARISON: None. Procedure Note Calvin Reyes MD - 07/08/2025 XR KNEE 4 OR MORE VIEWS (RIGHT) Referring clinician's provided indication for this examination in [facility]:Pain; S/P Fall COMPARISON: None. IMPRESSION: No [...] clinician's provided indication for this examination in [facility]: Right Leg Pain TECHNIQUE: Right lower [...] & B GENERIC MEDICARE SUPPLEMENT Care Teams Senior Health Educator Relationship Specialty Start Date End Date Pcp, Unknown PCP - General 07/08/25 Additional Source Comments The information contained in this document represents components of the legal health record. It is not the complete legal health record.[facility]
== END ==
LOC: HO.CARD 11:34
PROVIDERS: PCP Nurse Practitioner Family; Visit Provider Nurse Practitioner Family
DX: I11.0 Hypertensive heart disease with heart failure (principal); I50.32 Chronic diastolic (congestive) heart failure
CPT/HCPCS: 93005

== ENCOUNTER → 2025-07-24 11:40 | Outpatient (BNV) | payer MEDICARE, OTHER, SELFPAY | PROVIDERS: PCP Nurse Practitioner Family; Visit Provider Internal Medicine Cardiovascular Disease | DX: I10 Essential (primary) hypertension (principal) | CPT/HCPCS: 93010 ==